=== PATIENT | female | born 1980 | race African-American/Black ===

== ENCOUNTER → 2016-12-31 | Outpatient (CLI) | payer OTHER ==
[~2016-12-31] MED LIST: ALBU17IN2 IN; ALBU83IN IN; AMOX500T PO; BISO5TAB5 PO; CALC600T7 PO; CLAR1TAB2 PO; CLAR5CHW OR; CLARITIN OR; CYCL5TA PO; DIOV160T6 PO; DULO30CA PO; ENEMENE3 PR; EPIP0.3I2 INJ; FERR325T OR; FLOXIN OTIC AD; GABA-283 PO; GABA300C3 PO; HYDR25OIN TOP; HYDR25TA6 OR; LABE30TA OR; LIDO1OIN2 TOP; LISI10TA4 OR; MECL-68 PO; MOME50SP; MULTIVIT OR; NASONEX; NORC7.5T PO; PAXI20TA3 PO; PREV15CA OR; PRIL40CA OR; PRIL40CA PO; PROA1AER INH; RANI15TA PO; REME15TA PO; REME15TA2 PO; ROBA750T4 PO; SKEL800T5 OR; SOMA350T PO; SPIR25TA2 PO; TRAM50TA2 PO; VICO5TAB OR; VITAMIN D50000 UNT OR; VOLT1GEL24 TD; VOLT1GEL24 TOP; XARE20TA PO; ZOFR20TA PO; ZOLO50TA PO; hydrocodone PO
--- NOTE | 2017-01-18 01:54 | ECWPNPC ---
PATIENT NAME: WILNER KEBEDE : 1980 GENDER: FEMALE VISIT DATE: 12/31/2016 DISCHARGE DATE: 12/31/16 1551 VISIT LOCKED DATE TIME: PHYSICIAN: LAN GERMAN RESOURCE: LAN GERMAN REASON FOR APPOINTMENT 1. BACK PAIN HISTORY OF PRESENT ILLNESS HISTORY OF PRESENT ILLNESS: PAIN THE PATIENT DESCRIBES THE PAIN... FALL RISK SCREENING: SCREENING :NO FALLS IN THE PAST YEAR TODAY'S VISIT: NOTES: RATES PAIN LEVEL TODAY 9/10. DESCRIBES PAIN ACHING/STABBING TENDER THROBBING, SHOOTING. PAIN CENTERED IN LOW BACK WITH RADIATION TO BOTH LEGS. IS NOT ABLE TO SLEEP DUE TO PAIN. CURRENT MEDICATIONS TAKING PROTONIX 40 MG TABLET DELAYED RELEASE 1 TABLET ORALLY ONCE A DAY, NOTES: 05-21-16 1200 TAKING TENS UNIT 1 1 DIRECTED TO BACK TOPICALLY DAILY ICD 9: 719.59 TAKING MULTIVITAMINS _ TABLET 1 TABLET ORALLY ONCE A DAY, NOTES: 05-21-16 0800 TAKING CALCIUM + D 600-200 MG-UNIT TABLET 1 TABLET ORALLY ONCE A DAY, NOTES: 05-21-16 08 TAKING EPIPEN 2-TANA 0.3 MG/0.3ML (1:1000) DEVICE 1 INJECTION INTRAMUSCULAR ONE TIME PRN, NOTES: HAS NOT USED TAKING FERROUS SULFATE 325 (65 FE) MG TABLET 1 TABLET ORALLY ONCE A DAY, NOTES: 05-21-16 08 TAKING LACTAID 4500 UNIT TABLET CHEWABLE 1 TABLET ORALLY FOUR TIMES A DAY TAKING BEANO - TABLET 1 TAB ORALLY ONCE DAILY TAKING CYTOTEC 100 MCG TABLET 1 TABLET WITH FOOD ORALLY FOUR TIMES A DAY TAKING LISINOPRIL 10 MG TABLET 1 TABLET ORALLY ONCE A DAY TAKING ERGOCALCIFEROL 19007 UNIT CAPSULE 1 CAPSULE ORALLY 1 TIME/WEEK, NOTES: 05-18-16 TAKING VOLTAREN 1 % GEL APPLY 4 GRAMS EXTERNALLY TO KNEE AND LOWER BACK 2 TIMES A DAY NEEDED FOR PAIN TAKING CLARITIN 10 MG TABLET 1 TABLET ORALLY ONCE A DAY, NOTES: 05-21-06 1900 TAKING ZOFRAN ODT 8 MG TABLET DISPERSIBLE 1 TAB(S) ORALLY EVERY 8 HRS NEEDED DISSOLVED ON TONGUE, NOTES: 1 WEEK TAKING WELLBUTRIN XL 300 MG TABLET EXTENDED RELEASE 24 HOUR 1 TABLET IN THE MORNING ORALLY ONCE A DAY TAKING TRAMADOL HCL 50 MG TABLET 1-2 TABLET NEEDED MDD6 ORALLY EVERY 6 HRS TAKING GABAPENTIN 400 MG CAPSULE 1 CAPSULE ORALLY THREE TIMES A DAY NOT-TAKING WELLBUTRIN XL 150 MG TABLET EXTENDED RELEASE 24 HOUR 1 TABLET IN THE MORNING ORALLY ONCE A DAY NOT-TAKING PREDNISONE TAPER 10 MG TAB TAKE 6 TABS QDX 3 DAYS, THEN TAKE 4 TAB QD X 3 DAYS, THEN TAKE 2 TABS QD X 3 DAYS, THEN TAKE 1 TAB QD X 4 DAYS, THEN STOP ORALLY DAILY NOT-TAKING PROAIR HFA 108 (90 BASE) MCG/ACT AEROSOL SOLUTION 2 PUFFS NEEDED INHALATION EVERY 4 HRS NEEDED NOT-TAKING MECLIZINE HCL 25 MG TABLET CHEWABLE 1 TABLET NEEDED ORALLY EVERY 6 HOURS NOT-TAKING NASACORT ALLERGY 24HR 55 MCG/ACT AEROSOL 1 PUFF IN EACH NOSTRIL NASALLY ONCE A DAY NOT-TAKING OCEAN NASAL SPRAY 0.65 % SOLUTION 2 DROPS IN EACH NOSTRIL NEEDED NASALLY EVERY 2 HRS NOT-TAKING CLASSIC NETI POT SINUS WASH 2300-700 MG KIT DIRECTED NASALLY DAILY DISCONTINUED AMOXICILLIN 500 MG CAPSULE 1 CAPSULE ORALLY EVERY 12 HRS MEDICATION LIST REVIEWED AND RECONCILED WITH THE PATIENT PAST MEDICAL HISTORY OBESITY HYPERTENSION ANEMIA GERD CHRONIC BACK PAIN WITH DISC HERNIATION L5-S1, EXTRUDED MATERIAL SMALLER ON MOST RECENT IMAGING 03/2015; BOTH NEUROSURGERY AND ORTHO AGREE NO SURGERY NECESSARY LEFT LEG PAIN URINARY FREQUENCY SURGEON FELT GASTROPARESIS PRESENT, BUT NORMAL NM GASTRIC EMPTYING STUDY 03/2016 CERVICAL CANCER ALLERGIES BEES: RASH, SWELLING: ALLERGY ZOMIG: HIVES: ALLERGY IODINE: ? SOCIAL HISTORY GENERAL: TOBACCO USE ARE YOU A:NONSMOKER LEARNING BARRIERS / SPECIAL NEEDS ORIENTED TO PLAN OF CARE: PATIENT, PAIN MANAGEMENT PATIENT, ORIENTED TO PLAN OF CARE: PATIENT, PAIN MANAGEMENT PATIENT. NEW PATIENT PAIN DIARY TODAY'S VISITNOTES FROM 0-10, WHAT LEVEL IS YOUR PAIN TODAY?0 PAIN CLINIC PFS, CLERGY, PUBLIC HEALTH REFERRALS PFS REFERRAL NEEDED?NO CLERGY REFERRAL NEEDED?NO PUBLIC HEALTH REFERRAL NEEDED?NO WAS THE PROVIDER NOTIFIED OF ANY PERTINENT INFO?NO PFS REFERRAL NEEDED?NO CLERGY REFERRAL NEEDED?NO PUBLIC HEALTH REFERRAL NEEDED?NO WAS THE PROVIDER NOTIFIED OF ANY PERTINENT INFO?NO REVIEW OF SYSTEMS CONSTITUTIONAL: ANY CHANGE IN YOUR MEDICAL CONDITION? YES B/P HAS BEEN ELEVATED--SEEING PCP 01/04/17 AND WILL LET HIM KNOW . CHILLS NO . FEVER NO . INFECTION: DO YOU HAVE NEW INFECTIONS? NO . DO YOU HAVE HISTORY OF MRSA? NO . MUSCULOSKELETAL: ANY NEW PATTERNS OF PAIN OR NUMBNESS? YES LEFT LOWER LEG IS NUMB AND TINGLY . GASTROENTEROLOGY: ANY NEW CHANGE IN BOWEL CONTROL? NO . GENITOURINARY: ANY NEW CHANGE IN BLADDER CONTROL? YES, INCONTINENT ALL THE TIME . IS THERE A CHANCE YOU COULD BE ? NO . HEMATOLOGY/LYMPH: DO YOU TAKE ANY BLOOD THINNERS? (FOR EXAMPLE- COUMADIN, PLAVIX, AGGRENOX, PLATEL, PRADAXA, OR XARELTO) NO . WHEN WAS YOUR LAST DOSE? DATE: TIME: . NEUROLOGY: HAVE YOU FALLEN IN THE PAST 6 MONTHS? NO . ANY NEW EXTREMITY NUMBNESS OR WEAKNESS? NO . CARDIOLOGY: DO YOU HAVE A PACEMAKER OR DEFIBRILLATOR? NO . RESPIRATORY: HAVE YOU BEEN SICK IN THE PAST WEEK? NO . FEVER NO . FLU LIKE SYMPTOMS? NO . COUGH NO . INTEGUMENTARY: DO YOU HAVE ANY RASHES OR OPEN SORES? NO . ALLERGIC/IMMUNO: ARE YOU ALLERGIC TO SHELLFISH OR IV DYE? YES IODINE--NOT SURE OF REACTION, HAPPENED AFTER AN INJECTION IN THE PAIN CLINIC A COUPLE OF YEARS AGO . ANY NEW ALLERGIES? NO . PSYCHIATRIC: DO YOU HAVE THOUGHTS OF HURTING YOURSELF OR SOMEONE ELSE? NO . ARE YOU ABUSED, NEGLECTED, OR IN AN UNSAFE ENVIRONMENT? NO . ENDOCRINOLOGY: ARE YOU DIABETIC? NO . OTHER: DO YOU NEED ANY PRESCRIPTIONS? NO . IF YES, PLEASE LIST: ____ . ANY NEW PROBLEMS WITH YOUR MEDICATIONS? NO . WHEN DID YOU LAST EAT? ____ . WHEN DID YOU LAST DRINK? ____ . WHAT DID YOU LAST DRINK? ____ . NAME OF PERSON DRIVING YOU HOME? ____ . DO YOU HAVE ANY OTHER QUESTIONS OR CONCERNS NO . PSYCHOLOGY: ARE YOU RECEIVING COUNSELING? SEEING COUNSELOR. DOES NOT FEEL DEPRESSION MEDS ARE WORKING. . REVIEWED BY: PROVIDER: LAN GERMAN SIGNAL OPERATOR TECHNICAL . VITAL SIGNS WT 160.4 LBS, HT 62.25 IN, BMI 29.10 INDEX, BP 151/99 MM HG, HR 58 /MIN, RR 16 /MIN, TEMP 98.3 F, OXYGEN SAT % 100, NA INITIALS TL 1421, REVIEWED BY: ADELEVATED BP 151/99, PT STATES HER GASTRO DR IS AWARE, PT SEES HER PRIMARY CARE DR THURSDAY 01/04 AND WILL DISCUSS IT WITH HIM, RN A.D. AWARE, PT WEIGHED ON SCALE @ [facility]- TL. EXAMINATION GENERAL EXAMINATION: PSYCHALERT , ORIENTED X 3 , ANXIOUS, SHAKEY. HEENT:NORMOCEPHALIC, NO LYPHADENOPATHY, NO THYROMEGLY. LUNGS:CLEAR TO AUSCULTATION BILATERALLY, NO WHEEZES, RALES OR RHONCHI. HEART:NORMAL S1S2, NO MURMURS, CLICK OR RUBS. ABDOMEN:SOFT, NON-TENDER/NON-DISTENDED, BOWEL SOUNDS PRESENT. MUSCULOSKELETAL:MUSCLE STRENGTH TESTING 5/5 RIGHT LOWEREXTREMITY, 4+ /5 LLE. EXQUISITE TENDERNESS BILATERAL SIJ AND ACROSS THE SACRUM AND LOW BACK. GAIT ANTALGIC. HAS DIFFICULTY WITH BALANCE. POSITIVE LEONID SIGN LEFT LOWER EXTREMITY. . ASSESSMENTS LUMBAR DISC HERNIATION - M51.26 (PRIMARY) BILATERAL SACROILIITIS - M46.1 LUMBAR RADICULOPATHY - M54.16 TREATMENT LUMBAR DISC HERNIATION START NORCO TABLET, 10-325 MG, 1 TABLET NEEDED, ORALLY, EVERY 8-12 HRS PRN PAIN MDD=2, 15 DAYS, 30, REFILLS 0 CAUDAL/LUMBAR EPIDURAL NOTES: UTOX TODAY. PREVENTIVE MEDICINE PAIN CLINIC TEACHING: PROCEDURE TEACHING PATIENT DECLINED PRINTED INFORMATION ON THE LUMBAR EPIDURAL AND NORCO STATING SHE WAS FAMILIAR WITH BOTH. PROCEDURE CODES FA211 ESTABILISHED PATIENT [facility] FAC[facility] CHARGE DISPOSITION & COMMUNICATION FOLLOW UP 12-14 DAYS (REASON: CHECK AUTH FOR [facility]) ELECTRONICALLY SIGNED BY CHRIST TREVIÑO ON 01/17/2017 AT 02:00 PM EST DISCLAIMER : THIS IS A VISIT SUMMARY EXTRACTED FROM THE [employer] CHART. IT IS NOT A COPY OF THE [employer] PROGRESS NOTE. NAOMIE
== END ==
LOC: M PAIN 14:20
PROVIDERS: ATTEND Nurse Practitioner Family
DX: Z09 Encounter for follow-up examination after completed treatment for conditions other than malignant neoplasm (principal); G89.29 Other chronic pain; M51.26 Other intervertebral disc displacement, lumbar region; M46.1 Sacroiliitis, not elsewhere classified; M54.16 Radiculopathy, lumbar region; I10 Essential (primary) hypertension; D64.9 Anemia, unspecified; K21.9 Gastro-esophageal reflux disease without esophagitis; M51.27 Other intervertebral disc displacement, lumbosacral region; R39.81 Functional urinary incontinence; Z91.030 Bee allergy status; Z88.8 Allergy status to other drugs, medicaments and biological substances; Z79.891 Long term (current) use of opiate analgesic; Z79.899 Other long term (current) drug therapy; Z85.41 Personal history of malignant neoplasm of cervix uteri

== ENCOUNTER → 2017-01-16 | Outpatient (CLI) | payer OTHER ==
--- NOTE | 2017-01-25 00:16 | ECWPNPC ---
PATIENT NAME: WILNER KEBEDE : 1980 GENDER: FEMALE VISIT DATE: 01/16/2017 DISCHARGE DATE: 01/16/17 1059 VISIT LOCKED DATE TIME: PHYSICIAN: LAN GERMAN RESOURCE: LAN GERMAN REASON FOR APPOINTMENT 1. BACK PAIN/MED CHECK HISTORY OF PRESENT ILLNESS HISTORY OF PRESENT ILLNESS: PAIN THE PATIENT DESCRIBES THE PAIN... FALL RISK SCREENING: SCREENING :NO FALLS IN THE PAST YEAR TODAY'S VISIT: NOTES: RATES PAIN TODAY 8/10. DESCRIBES PAIN CONSTANT, ACHING, BURNING, STABBING, TENDER, SORE AND SHOOTING.REPORTS PAIN IS CENTERED ACROSS THE LOW BACK WITH RADIATION TO THE BUTTUCK AND MID THIGH.. REPORTS HYDROCODONE HAS BEEN HELPFUL AND THAT THE OVERALL PAINIS BETTER. NOTES SLEEP HAS HAS IMPROVED. . CURRENT MEDICATIONS TAKING PROTONIX 40 MG TABLET DELAYED RELEASE 1 TABLET ORALLY ONCE A DAY, NOTES: 05-21-16 1200 TAKING TENS UNIT 1 1 DIRECTED TO BACK TOPICALLY DAILY ICD 9: 719.59 TAKING MULTIVITAMINS _ TABLET 1 TABLET ORALLY ONCE A DAY, NOTES: 05-21-16 0800 TAKING CALCIUM + D 600-200 MG-UNIT TABLET 1 TABLET ORALLY ONCE A DAY, NOTES: 05-21-16 08 TAKING EPIPEN 2-TANA 0.3 MG/0.3ML (1:1000) DEVICE 1 INJECTION INTRAMUSCULAR ONE TIME PRN, NOTES: HAS NOT USED TAKING FERROUS SULFATE 325 (65 FE) MG TABLET 1 TABLET ORALLY TWICE A DAY, NOTES: 05-21-16 0800 TAKING LACTAID 4500 UNIT TABLET CHEWABLE 1 TABLET ORALLY FOUR TIMES A DAY TAKING BEANO - TABLET 1 TAB ORALLY ONCE DAILY TAKING CYTOTEC 100 MCG TABLET 1 TABLET WITH FOOD ORALLY FOUR TIMES A DAY TAKING LISINOPRIL 10 MG TABLET 1 TABLET ORALLY ONCE A DAY TAKING ERGOCALCIFEROL 88370 UNIT CAPSULE 1 CAPSULE ORALLY 1 TIME/WEEK, NOTES: 05-18-16 TAKING VOLTAREN 1 % GEL APPLY 4 GRAMS EXTERNALLY TO KNEE AND LOWER BACK 2 TIMES A DAY NEEDED FOR PAIN TAKING CLARITIN 10 MG TABLET 1 TABLET ORALLY ONCE A DAY, NOTES: 05-21-06 1900 TAKING ZOFRAN ODT 8 MG TABLET DISPERSIBLE 1 TAB(S) ORALLY EVERY 8 HRS NEEDED DISSOLVED ON TONGUE, NOTES: 1 WEEK TAKING WELLBUTRIN XL 300 MG TABLET EXTENDED RELEASE 24 HOUR 1 TABLET IN THE MORNING ORALLY ONCE A DAY TAKING NORCO 10-325 MG TABLET 1 TABLET NEEDED ORALLY EVERY 8-12 HRS PRN PAIN MDD=2 TAKING TRAMADOL HCL 50 MG TABLET 1-2 TABLET NEEDED MDD6 ORALLY EVERY 6 HRS TAKING VITAMIN D 1000 UNIT TABLET 1 TABLET-5000U ORALLY ONCE A DAY TAKING ZYPREXA 5 MG TABLET 1 TABLET ORALLY ONCE A DAY TAKING WELLBUTRIN XL 150 MG TABLET EXTENDED RELEASE 24 HOUR 1 TABLET IN THE MORNING ORALLY ONCE A DAY TAKING PROAIR HFA 108 (90 BASE) MCG/ACT AEROSOL SOLUTION 2 PUFFS NEEDED INHALATION EVERY 4 HRS NEEDED NOT-TAKING GABAPENTIN 400 MG CAPSULE 1 CAPSULE ORALLY THREE TIMES A DAY DISCONTINUED PREDNISONE TAPER 10 MG TAB TAKE 6 TABS QDX 3 DAYS, THEN TAKE 4 TAB QD X 3 DAYS, THEN TAKE 2 TABS QD X 3 DAYS, THEN TAKE 1 TAB QD X 4 DAYS, THEN STOP ORALLY DAILY DISCONTINUED MECLIZINE HCL 25 MG TABLET CHEWABLE 1 TABLET NEEDED ORALLY EVERY 6 HOURS DISCONTINUED NASACORT ALLERGY 24HR 55 MCG/ACT AEROSOL 1 PUFF IN EACH NOSTRIL NASALLY ONCE A DAY DISCONTINUED OCEAN NASAL SPRAY 0.65 % SOLUTION 2 DROPS IN EACH NOSTRIL NEEDED NASALLY EVERY 2 HRS DISCONTINUED CLASSIC NETI POT SINUS WASH 2300-700 MG KIT DIRECTED NASALLY DAILY MEDICATION LIST REVIEWED AND RECONCILED WITH THE PATIENT PAST MEDICAL HISTORY OBESITY HYPERTENSION ANEMIA GERD CHRONIC BACK PAIN WITH DISC HERNIATION L5-S1, EXTRUDED MATERIAL SMALLER ON MOST RECENT IMAGING 03/2015; BOTH NEUROSURGERY AND ORTHO AGREE NO SURGERY NECESSARY LEFT LEG PAIN URINARY FREQUENCY SURGEON FELT GASTROPARESIS PRESENT, BUT NORMAL NM GASTRIC EMPTYING STUDY 03/2016 CERVICAL CANCER ALLERGIES BEES: RASH, SWELLING: ALLERGY ZOMIG: HIVES: ALLERGY IODINE: ? SOCIAL HISTORY GENERAL: TOBACCO USE ARE YOU A:NONSMOKER LEARNING BARRIERS / SPECIAL NEEDS ORIENTED TO PLAN OF CARE: PATIENT, PAIN MANAGEMENT PATIENT, ORIENTED TO PLAN OF CARE: PATIENT, PAIN MANAGEMENT PATIENT. NEW PATIENT PAIN DIARY TODAY'S VISITNOTES FROM 0-10, WHAT LEVEL IS YOUR PAIN TODAY?0 PAIN CLINIC PFS, CLERGY, PUBLIC HEALTH REFERRALS PFS REFERRAL NEEDED?NO CLERGY REFERRAL NEEDED?NO PUBLIC HEALTH REFERRAL NEEDED?NO WAS THE PROVIDER NOTIFIED OF ANY PERTINENT INFO?NO PFS REFERRAL NEEDED?NO CLERGY REFERRAL NEEDED?NO PUBLIC HEALTH REFERRAL NEEDED?NO WAS THE PROVIDER NOTIFIED OF ANY PERTINENT INFO?NO REVIEW OF SYSTEMS CONSTITUTIONAL: ANY CHANGE IN YOUR MEDICAL CONDITION? NO . CHILLS NO . FEVER NO . INFECTION: DO YOU HAVE NEW INFECTIONS? NO . DO YOU HAVE HISTORY OF MRSA? NO . MUSCULOSKELETAL: ANY NEW PATTERNS OF PAIN OR NUMBNESS? NO . GASTROENTEROLOGY: ANY NEW CHANGE IN BOWEL CONTROL? NO . GENITOURINARY: ANY NEW CHANGE IN BLADDER CONTROL? YES, STILL HAVING URINARY INCONTINANCE. HAS SEEN PCP . IS THERE A CHANCE YOU COULD BE ? NO . HEMATOLOGY/LYMPH: DO YOU TAKE ANY BLOOD THINNERS? (FOR EXAMPLE- COUMADIN, PLAVIX, AGGRENOX, PLATEL, PRADAXA, OR XARELTO) NO . WHEN WAS YOUR LAST DOSE? DATE: TIME: . NEUROLOGY: HAVE YOU FALLEN IN THE PAST 6 MONTHS? NO . ANY NEW EXTREMITY NUMBNESS OR WEAKNESS? NO . CARDIOLOGY: DO YOU HAVE A PACEMAKER OR DEFIBRILLATOR? NO . RESPIRATORY: HAVE YOU BEEN SICK IN THE PAST WEEK? NO . FEVER NO . FLU LIKE SYMPTOMS? NO . COUGH NO . INTEGUMENTARY: DO YOU HAVE ANY RASHES OR OPEN SORES? NO . ALLERGIC/IMMUNO: ARE YOU ALLERGIC TO SHELLFISH OR IV DYE? NO . ANY NEW ALLERGIES? NO . PSYCHIATRIC: DO YOU HAVE THOUGHTS OF HURTING YOURSELF OR SOMEONE ELSE? NO . ARE YOU ABUSED, NEGLECTED, OR IN AN UNSAFE ENVIRONMENT? NO . ENDOCRINOLOGY: ARE YOU DIABETIC? NO . OTHER: DO YOU NEED ANY PRESCRIPTIONS? YES . IF YES, PLEASE LIST: HYDROCODONE 10/325MG . ANY NEW PROBLEMS WITH YOUR MEDICATIONS? NO . WHEN DID YOU LAST EAT? ____ . WHEN DID YOU LAST DRINK? ____ . WHAT DID YOU LAST DRINK? ____ . NAME OF PERSON DRIVING YOU HOME? ____ . DO YOU HAVE ANY OTHER QUESTIONS OR CONCERNS YES, HAD AN ENDOSCOPY AND UPPER GI LAST SATURDAY FOR NAUSEA. . REVIEWED BY: PROVIDER: LAN WILDE . VITAL SIGNS WT 160.4 LBS, HT 62.25 IN, BMI 29.10 INDEX, BP 158/95 MM HG, HR 59 /MIN, RR 16 /MIN, TEMP 97.3 F, OXYGEN SAT % 97%, NA INITIALS SC 10:24, REVIEWED BY: CM. EXAMINATION GENERAL EXAMINATION: PSYCHALERT , ORIENTED X 3 , APPROPRIATE MOOD AND AFFECT , APPEARS UNCOMFORTABLE. LUNGS:CLEAR TO AUSCULTATION BILATERALLY. HEART:HEART RATE REGULAR. MUSCULOSKELETAL:POINT TENDERNESS OVER BILATERAL SIJ REGIONS., TRIGGER POINTS:, ELICITED WITH PALPATION OVER LUMBAR PARAVERTEBRAL MUSCLES AND INTO THE SECRUM. RESTRICTION OF ROM IN THIS AREA. PAIN WITH FLEXION OF QUADRICEPS, LEFT GREATER THAN RIGHT. POSTURE STOOPED. GAIT IS ANTALGIC. . ASSESSMENTS LUMBAR DISC HERNIATION - M51.26 (PRIMARY) BILATERAL SACROILIITIS - M46.1 LUMBAR RADICULOPATHY - M54.16 TREATMENT LUMBAR DISC HERNIATION REFILL NORCO TABLET, 10-325 MG, 1 TABLET NEEDED, ORALLY, EVERY 8-12 HRS PRN PAIN MDD=2, 30 DAY(S), 60, REFILLS 0 NOTES: CONTINUE CURRENT MEDS. WALK EVERY DAY. CLINICAL NOTES: ISTOP REGISTRY REVIEWED AND DEMNOSTRATES COMPLLIANCE. BRINGS IN MEDICATIONS WHICH IS APPROPRIATE FOR WHAT WAS DISPENSED. RECENT URINE TOXICOLOGY REVIEWED. NO UNAUTHORIZED MEDICATIONS. NOTE VERY SMALL AMOUNT OF THC PRESENT IN URINE TOXICOLOGY. PATIENT REPORTS THAT SHE IS NO LONGER USING ANY MARIJUANA. I DID REVIEW WITH HER THAT CONTINUED USE OF MARIJUANA WOULD CAUSE US TO HAVE TO DISCONTINUE ANY OPIOIDS. PATIENT EXPRESSED UNDERSTANDING. PROCEDURE CODES FA211 ESTABILISHED PATIENT [facility] CHARGE DISPOSITION & COMMUNICATION FOLLOW UP 3 WEEKS (REASON: CHECK INJECTION SCHEDULE AND RESCHEDULE IF NECESSARY) ELECTRONICALLY SIGNED BY CHRIST TREVIÑO ON 01/24/2017 AT 08:59 AM EST DISCLAIMER : THIS IS A VISIT SUMMARY EXTRACTED FROM THE [employer] CHART. IT IS NOT A COPY OF THE [employer] PROGRESS NOTE. CHUYD
== END ==
LOC: M PAIN 10:20
PROVIDERS: ATTEND Nurse Practitioner Family
DX: Z09 Encounter for follow-up examination after completed treatment for conditions other than malignant neoplasm (principal); G89.29 Other chronic pain; M51.26 Other intervertebral disc displacement, lumbar region; M46.1 Sacroiliitis, not elsewhere classified; M54.16 Radiculopathy, lumbar region; E66.9 Obesity, unspecified; Z68.29 Body mass index [BMI] 29.0-29.9, adult; I10 Essential (primary) hypertension; D64.9 Anemia, unspecified; K21.9 Gastro-esophageal reflux disease without esophagitis; K92.0 Hematemesis; F32.9 Major depressive disorder, single episode, unspecified; E55.9 Vitamin D deficiency, unspecified; J30.9 Allergic rhinitis, unspecified; Z91.030 Bee allergy status; Z88.8 Allergy status to other drugs, medicaments and biological substances; Z79.891 Long term (current) use of opiate analgesic; Z79.899 Other long term (current) drug therapy; Z98.84 Bariatric surgery status; Z85.41 Personal history of malignant neoplasm of cervix uteri

== ENCOUNTER 2017-02-08 12:18 | Emergency (ER) | payer OTHER ==
[~2017-02-08] VITALS: Ht 157.5 cm; Wt 73.9 kg
[~2017-02-08 12:18] MED LIST changes: -CYTO100T PO; -ERGO500014 PO; -ISOVUE-M 300 61% 15ML VIAL (Q9967) As Ordered ONE; -LIDOCAINE 1% SDV INJ 30 ML VIAL As Ordered ONE; -LISI10TA4 PO; -MIDAZOLAM INJ 2 MG/2 ML VIAL (J2250) As Ordered ONE; -PROTPAK PO; -diazePAM 5 MG TAB As Ordered ONE; -diphenhydrAMINE 25 MG CAP As Ordered ONE; -diphenhydrAMINE INJ 50MG/ML VIAL (J1200) As Ordered ONE; -methylPREDNISolone SUSP 40 MG/ML (DEPO-medrol) VIAL (J1030) As Ordered ONE; -oxyCODONE 5MG TAB As Ordered ONE
[2017-02-08] MEDS ORDERED: LISI10TA4 PO (12:38)
[2017-02-08] MEDS ORDERED: PROTPAK PO (12:38)
[2017-02-08] MEDS ORDERED: CYTO100T PO (12:38)
[2017-02-08] MEDS ORDERED: ERGO500014 PO (12:38)
[2017-02-08] MEDS ORDERED: methylPREDNISolone INJ 125 MG/2 ML VIAL (J2930) IV ONE (13:00)
[2017-02-08] MEDS ORDERED: PROMETHAZINE INJ 25 MG/ML VIAL (J2550) IV ONE (13:00)
[2017-02-08] MEDS ORDERED: NS 1,000 ML IV ONE (13:00)
[2017-02-08] MEDS ORDERED: FAMOTIDINE IV BAG 20 MG in APPROPRIATE DILUENT 1 EA IV ONE (13:00)
[2017-02-08] MEDS: ALBUTEROL SULFATE 2.5 MG/0.5 ML INH NEB SOLN NEB SCH ×3 (13:19→13:38)
[2017-02-08] MEDS ORDERED: NORCO, ANEXSIA 5/325MG TABLET (HYDROcodone/ACETAMINOPHEN) PO ONE (14:00)
[2017-02-08 15:54] VITALS: BP 138/73
== END 2017-02-08 16:00 | disposition home or self-care (01) ==
LOC: M ED 12:54
DX: L29.9 Pruritus, unspecified (principal); T50.905A Adverse effect of unspecified drugs, medicaments and biological substances, initial encounter; G89.29 Other chronic pain; M54.9 Dorsalgia, unspecified; Z98.84 Bariatric surgery status; K31.84 Gastroparesis; Z90.49 Acquired absence of other specified parts of digestive tract; F17.200 Nicotine dependence, unspecified, uncomplicated; Z79.899 Other long term (current) drug therapy; Z91.030 Bee allergy status; Z88.6 Allergy status to analgesic agent; Z88.8 Allergy status to other drugs, medicaments and biological substances
CPT/HCPCS: 93041; 94640; 94760; 96361; 96374; 96375; 99285; J2930

== ENCOUNTER 2017-02-08 20:29 | Emergency (ER) | payer OTHER ==
[~2017-02-08] VITALS: Ht 157.5 cm; Wt 73.9 kg
[~2017-02-08 20:29] MED LIST changes: +CYTO100T PO; +ERGO500014 PO; +LISI10TA4 PO; +PROTPAK PO
[2017-02-08] MEDS ORDERED: NS 1,000 ML IV ONE (22:30)
[2017-02-08 22:47] LABS: CONTROL LINE UCG INT CTR LINE PRESENT
[2017-02-08 22:56] LABS: BASO % 0.3 % (0.0-1.0); EOS % 0.6 % (0.0-3.0); LYMPH # 0.6 K/mm3 (1.5-4.5); LYMPH % 17.4 % (24.0-44.0); MEAN CORPUSCULAR HEMOGLOBIN 29.6 pg (27.0-33.0); MEAN CORPUSCULAR HGB CONC 32.4 g/dl (32.0-36.5); MEAN CORPUSCULAR VOLUME 91.3 fl (80.0-96.0); MONO # 0.1 K/mm3 (0.0-0.8); MONO % 1.5 % (0.0-5.0); NEUTROPHILS # 2.6 K/mm3 (1.8-7.7); NEUTROPHILS % 79.2 % (36.0-66.0); PLATELET COUNT, AUTOMATED 259 k/mm3 (150-450); WHITE BLOOD COUNT 3.3 K/mm3 (4.0-10.0)
[2017-02-08 23:15] LABS: ALBUMIN 3.5 GM/DL (3.2-5.2); ALBUMIN/GLOBULIN RATIO 1.03 (1.00-1.93); ALKALINE PHOSPHATASE 167 U/L (45-117); ALT/SGPT 107 U/L (12-78); ANION GAP 7 MEQ/L (8-16); AST/SGOT 188 U/L (15-37); BILIRUBIN,DIRECT 0.3 MG/DL (0.0-0.2); BILIRUBIN,TOTAL 1.2 MG/DL (0.2-1.0); BLOOD UREA NITROGEN 10 MG/DL (7-18); CARBON DIOXIDE LEVEL 25 MEQ/L (21-32); CHLORIDE LEVEL 110 MEQ/L (98-107); CREATININE FOR GFR 0.75 MG/DL (0.55-1.02); GLOMERULAR FILTRATION RATE > 60.0 (>60); GLUCOSE, FASTING 189 MG/DL (70-105); POTASSIUM SERUM 4.2 MEQ/L (3.5-5.1); SODIUM LEVEL 142 MEQ/L (136-145); TOTAL PROTEIN 6.9 GM/DL (6.4-8.2)
[2017-02-09 00:40] VITALS: BP 125/65
--- NOTE | 2017-02-09 14:45 | ECGEPIP ---
Stationary ECG Study [facility] Test Date: 2017-02-08 Pat Name: WILNER KEBEDE Department: Room: - Gender: F [employer]: nando : 1980 Requested By: SHARYN Stewart Order Number: [id number] Reading MD: oJdee Viveros Measurements Intervals [place] Rate: 59 P: 51 MI: 192 QRS: 54 QRSD: 88 T: 48 QT: 439 QTc: 438 Interpretive Statements SINUS BRADYCARDIA VOLTAGE CRITERIA FOR LVH P AXIS NORMALIZED RATE SLOWER PROB EARLY REPOLAR CHANGES NEW C/W 08/31/14 Electronically Signed On 02-09-2017 14:45:15 EST by Jodee Viveros
== END 2017-02-09 00:43 | disposition home or self-care (01) ==
LOC: M ED 21:53
DX: R55 Syncope and collapse (principal); R42 Dizziness and giddiness; I10 Essential (primary) hypertension; M54.9 Dorsalgia, unspecified; Z98.84 Bariatric surgery status; F17.200 Nicotine dependence, unspecified, uncomplicated; Z79.899 Other long term (current) drug therapy; Z91.030 Bee allergy status; Z88.6 Allergy status to analgesic agent; Z88.8 Allergy status to other drugs, medicaments and biological substances

== ENCOUNTER → 2017-02-08 | Outpatient (CLI) | payer OTHER ==
[~2017-02-08] MED LIST changes: +CYTO100T PO; +ERGO500014 PO; +ISOVUE-M 300 61% 15ML VIAL (Q9967) As Ordered ONE; +LIDOCAINE 1% SDV INJ 30 ML VIAL As Ordered ONE; +LISI10TA4 PO; +MIDAZOLAM INJ 2 MG/2 ML VIAL (J2250) As Ordered ONE; +PROTPAK PO; +diazePAM 5 MG TAB As Ordered ONE; +diphenhydrAMINE 25 MG CAP As Ordered ONE; +diphenhydrAMINE INJ 50MG/ML VIAL (J1200) As Ordered ONE; +methylPREDNISolone SUSP 40 MG/ML (DEPO-medrol) VIAL (J1030) As Ordered ONE; +oxyCODONE 5MG TAB As Ordered ONE
--- NOTE | 2017-02-09 10:42 | REP ---
Partial lumbar spine series: Two views. History: Injection procedure for pain. 11 seconds of fluoroscopy time is reported. Findings: A sequence of two fluoroscopically obtained intraprocedural spot radiographs of the lumbar spine document needle position and contrast injection associated with lumbar epidural injection procedure. Signed by Ilan Hill MD 02/09/2017 12:25 P
--- NOTE | 2017-02-19 01:37 | ECWPNPC ---
PATIENT NAME: WILNER KEBEDE : 1980 GENDER: FEMALE VISIT DATE: 02/08/2017 DISCHARGE DATE: 02/08/17 1346 VISIT LOCKED DATE TIME: PHYSICIAN: SELMA BURDEN RESOURCE: SELMA BURDEN REASON FOR APPOINTMENT 1. LESB HISTORY OF PRESENT ILLNESS HISTORY OF PRESENT ILLNESS: PAIN THE PATIENT DESCRIBES THE PAIN... FALL RISK SCREENING: SCREENING :NO FALLS IN THE PAST YEAR CURRENT MEDICATIONS TAKING PROTONIX 40 MG TABLET DELAYED RELEASE 1 TABLET ORALLY ONCE A DAY, NOTES: 02/07/17@0900 TAKING TENS UNIT 1 1 DIRECTED TO BACK TOPICALLY DAILY ICD 9: 719.59 TAKING MULTIVITAMINS _ TABLET 1 TABLET ORALLY ONCE A DAY, NOTES: 02/07/13@1300 TAKING CALCIUM + D 600-200 MG-UNIT TABLET 1 TABLET ORALLY ONCE A DAY, NOTES: 02/07/17@1300 TAKING EPIPEN 2-TANA 0.3 MG/0.3ML (1:1000) DEVICE 1 INJECTION INTRAMUSCULAR ONE TIME PRN, NOTES: HAS NOT USED TAKING FERROUS SULFATE 325 (65 FE) MG TABLET 1 TABLET ORALLY TWICE A DAY, NOTES: 02/07/17@2100 TAKING LACTAID 4500 UNIT TABLET CHEWABLE 1 TABLET ORALLY FOUR TIMES A DAY, NOTES: 2 DAYS AGO TAKING BEANO - TABLET 1 TAB ORALLY ONCE DAILY, NOTES: 2 DAYS AGO TAKING CYTOTEC 100 MCG TABLET 1 TABLET WITH FOOD ORALLY FOUR TIMES A DAY, NOTES: 02/07/13@0900 TAKING LISINOPRIL 10 MG TABLET 1 TABLET ORALLY ONCE A DAY, NOTES: 02/07/17@0900 TAKING ERGOCALCIFEROL 44739 UNIT CAPSULE 1 CAPSULE ORALLY 1 TIME/WEEK, NOTES: 1 WEEK AGO TAKING VOLTAREN 1 % GEL APPLY 4 GRAMS EXTERNALLY TO KNEE AND LOWER BACK 2 TIMES A DAY NEEDED FOR PAIN , NOTES: 1 WEEK AGO TAKING CLARITIN 10 MG TABLET 1 TABLET ORALLY ONCE A DAY, NOTES: 02/07/17@2100 TAKING ZOFRAN ODT 8 MG TABLET DISPERSIBLE 1 TAB(S) ORALLY EVERY 8 HRS NEEDED DISSOLVED ON TONGUE, NOTES: 02/08@0300 TAKING WELLBUTRIN XL 300 MG TABLET EXTENDED RELEASE 24 HOUR 1 TABLET IN THE MORNING ORALLY ONCE A DAY, NOTES: 02/07/17@0900 TAKING TRAMADOL HCL 50 MG TABLET 1-2 TABLET NEEDED MDD6 ORALLY EVERY 6 HRS, NOTES: 2 DAYS AGO TAKING VITAMIN D 1000 UNIT TABLET 1 TABLET-5000U ORALLY ONCE A DAY, NOTES: 02/07/17@1300 TAKING ZYPREXA 5 MG TABLET 1 TABLET ORALLY ONCE A DAY, NOTES: 02/07/17@0900 TAKING PROAIR HFA 108 (90 BASE) MCG/ACT AEROSOL SOLUTION 2 PUFFS NEEDED INHALATION EVERY 4 HRS NEEDED, NOTES: HASN'T USED LATELY TAKING NORCO 10-325 MG TABLET 1 TABLET NEEDED ORALLY EVERY 8-12 HRS PRN PAIN MDD=2, NOTES: 02/07/17@1900 NOT-TAKING GABAPENTIN 400 MG CAPSULE 1 CAPSULE ORALLY THREE TIMES A DAY DISCONTINUED WELLBUTRIN XL 150 MG TABLET EXTENDED RELEASE 24 HOUR 1 TABLET IN THE MORNING ORALLY ONCE A DAY MEDICATION LIST REVIEWED AND RECONCILED WITH THE PATIENT PAST MEDICAL HISTORY OBESITY HYPERTENSION ANEMIA GERD CHRONIC BACK PAIN WITH DISC HERNIATION L5-S1, EXTRUDED MATERIAL SMALLER ON MOST RECENT IMAGING 03/2015; BOTH NEUROSURGERY AND ORTHO AGREE NO SURGERY NECESSARY LEFT LEG PAIN URINARY FREQUENCY SURGEON FELT GASTROPARESIS PRESENT, BUT NORMAL NM GASTRIC EMPTYING STUDY 03/2016 CERVICAL CANCER ALLERGIES BEES: RASH, SWELLING: ALLERGY ZOMIG: HIVES: ALLERGY IODINE: ? SOCIAL HISTORY GENERAL: TOBACCO USE ARE YOU A:NONSMOKER LEARNING BARRIERS / SPECIAL NEEDS ORIENTED TO PLAN OF CARE: PATIENT, PAIN MANAGEMENT PATIENT, ORIENTED TO PLAN OF CARE: PATIENT, PAIN MANAGEMENT PATIENT. NEW PATIENT PAIN DIARY TODAY'S VISITNOTES FROM 0-10, WHAT LEVEL IS YOUR PAIN TODAY?0 PAIN CLINIC PFS, CLERGY, PUBLIC HEALTH REFERRALS PFS REFERRAL NEEDED?NO CLERGY REFERRAL NEEDED?NO PUBLIC HEALTH REFERRAL NEEDED?NO WAS THE PROVIDER NOTIFIED OF ANY PERTINENT INFO?NO PFS REFERRAL NEEDED?NO CLERGY REFERRAL NEEDED?NO PUBLIC HEALTH REFERRAL NEEDED?NO WAS THE PROVIDER NOTIFIED OF ANY PERTINENT INFO?NO REVIEW OF SYSTEMS CONSTITUTIONAL: ANY CHANGE IN YOUR MEDICAL CONDITION? NO . CHILLS NO . FEVER NO . INFECTION: DO YOU HAVE NEW INFECTIONS? NO . DO YOU HAVE HISTORY OF MRSA? NO . MUSCULOSKELETAL: ANY NEW PATTERNS OF PAIN OR NUMBNESS? NO . GASTROENTEROLOGY: ANY NEW CHANGE IN BOWEL CONTROL? NO . GENITOURINARY: ANY NEW CHANGE IN BLADDER CONTROL? NO . IS THERE A CHANCE YOU COULD BE ? NO . HEMATOLOGY/LYMPH: DO YOU TAKE ANY BLOOD THINNERS? (FOR EXAMPLE- COUMADIN, PLAVIX, AGGRENOX, PLATEL, PRADAXA, OR XARELTO) NO . WHEN WAS YOUR LAST DOSE? DATE: TIME: . NEUROLOGY: HAVE YOU FALLEN IN THE PAST 6 MONTHS? NO . ANY NEW EXTREMITY NUMBNESS OR WEAKNESS? NO . CARDIOLOGY: DO YOU HAVE A PACEMAKER OR DEFIBRILLATOR? NO . RESPIRATORY: HAVE YOU BEEN SICK IN THE PAST WEEK? NO . FEVER NO . FLU LIKE SYMPTOMS? NO . COUGH NO . INTEGUMENTARY: DO YOU HAVE ANY RASHES OR OPEN SORES? NO . ALLERGIC/IMMUNO: ARE YOU ALLERGIC TO SHELLFISH OR IV DYE? NO . ANY NEW ALLERGIES? NO . PSYCHIATRIC: DO YOU HAVE THOUGHTS OF HURTING YOURSELF OR SOMEONE ELSE? NO . ARE YOU ABUSED, NEGLECTED, OR IN AN UNSAFE ENVIRONMENT? NO . ENDOCRINOLOGY: ARE YOU DIABETIC? NO . OTHER: DO YOU NEED ANY PRESCRIPTIONS? NO . IF YES, PLEASE LIST: ____ . ANY NEW PROBLEMS WITH YOUR MEDICATIONS? NO . WHEN DID YOU LAST EAT? 02/07/17@1999 . WHEN DID YOU LAST DRINK? ____02/07/17@2099 . WHAT DID YOU LAST DRINK? ____WATER . NAME OF PERSON DRIVING YOU HOME? ____KASIA RAPHAEL . DO YOU HAVE ANY OTHER QUESTIONS OR CONCERNS NO . REVIEWED BY: PROVIDER: . VITAL SIGNS WT 163.2 LBS, HT 62.25 IN, BMI 29.61 INDEX, BP 157/93 MM HG, HR 63 /MIN, RR 16 /MIN, TEMP 97.3 F, OXYGEN SAT % 98, NA INITIALS TL 0912, REVIEWED BY: VD. ASSESSMENTS INTERVERTEBRAL DISC DISORDERS WITH RADICULOPATHY, LUMBOSACRAL REGION - M51.17 (PRIMARY) PROCEDURES PRE PROCEDURE DIAGNOSIS LUMBOSACRAL RADICULOPATHY, LUMBOSACRAL DISC DISORDER WITH RADICULOPATHY POST PROCEDURE DIAGNOSIS LUMBOSACRAL RADICULOPATHY , LUMBOSACRAL DISC DISORDER WITH RADICULOPATHY PROCEDURE L5-S1 EPIDURAL STEROID INJECTION UNDER FLUOROSCOPIC GUIDANCE SURGEON DR. SELMA BURDEN METALS SALES REPRESENTATIVE NONE ANESTHESIA LOCAL PRE PROCEDURE NOTE THE PATIENT HAS A HISTORY OF CHRONIC LOW BACK PAIN. I EVALUATE THE PATIENT AND REVIEWED THE CHART. I WENT OVER THE RISKS, ALTERNATIVES, AND BENEFITS ASSOCIATED WITH THIS PROCEDURE. THE PATIENT WOULD LIKE TO PROCEED AND GIVE CONSENT TO PERFORMED THE PROCEDURE. THE PATIENT DENIES UNEXPLAINABLE WEIGHT LOSS, FEVER, CHILLS, OR NEW CHANGES IN URINARY OR BOWEL CONTROL. DESCRIPTION OF PROCEDURE THE PATIENT WAS BROUGHT TO THE PROCEDURE ROOM AND PLACED IN THE PRONE POSITION. THE LUMBOSACRAL AREA WAS CLEANED WITH BETADINE SOLUTION AND DRAPED ASEPTICALLY. THE PROCEDURE WAS DONE UNDER STERILE CONDITIONS. I CHECKED LATERALITY AND THE LEVEL WHERE THE PROCEDURE WAS GOING TO BE PERFORMED WITH THE PATIENT AND THE SUPPORTING STAFF AT THE MOMENT OF THE TIME OUT IN THE PROCEDURE ROOM. UNDER FLUOROSCOPIC GUIDANCE, THE TARGET POINT WAS SELECTED AT THE INTERLAMINAR LEVEL OF L5-S1. LIDOCAINE WAS USED TO NUMB THE SKIN AND THE SUBCUTANEOUS TISSUE BELOW IT. EPIDURAL TUOHY NEEDLE, 17-GAUGE, WAS ADVANCED UNDER FLUOROSCOPIC GUIDANCE AND FOLLOWING PATIENT FEEDBACK UNTIL THE EPIDURAL SPACE WAS REACHED, 7 CM DEEP INTO THE SKIN BY THE LOSS OF RESISTANCE TECHNIQUE. ISOVUE M DYE 30%, 0.25 ML, WAS INJECTED SHOWING ADEQUATE SPREAD OF THE DYE. THEN, A SOLUTION OF 3 ML OF NORMAL SALINE WITH DEPO-MEDROL 60 MG WAS INJECTED SLOWLY FOLLOWING PATIENT FEEDBACK. THERE WAS NO EVIDENCE OF BLOOD, PARESTHESIA OR CEREBROSPINAL FLUID DURING THE PROCEDURE. FLUOROSCOPY TIME WAS 11 SECONDS. THE PATIENT WAS SENT TO THE RECOVERY ROOM. POST PROCEDURE NOTE AT THE RECOVERY ROOM THE PATIENT DEVELOPED TONIC TYPE OF ACTIVITY OF THE UPPER EXTREMITIES, PATIENT WAS ANXIOUS AND DYSPHORIC. I DISCUSSED WITH THE ER PHYSICIAN AND IT WAS ADVISED TO HAVE THE PATIENT GO TO THE ER. THE PATIENT WILL BE SEEN IN A FOLLOW UP IN THE NEXT FEW WEEKS. INSTRUCTIONS WERE GIVEN, QUESTIONS WERE ANSWERED, PATIENT REPORTS UNDERSTANDING AND AGREES WITH THE PLAN. I, KURTIS VALENCIA, DOCUMENTED THE ABOVE INFORMATION ACTING A SCRIBE FOR DR. BURDEN. I HAVE REVIEWED THE ABOVE DOCUMENT, WRITTEN BY KURTIS VALENCIA SCRIBEmigdio AND I VERIFY THAT IT IS ACCURATE. DIAGNOSTIC IMAGING [facility]– [place] GUIDE SPINE INJECTION (PAIN)[id number] PROCEDURE CODES 26911 LUMBAR/SACRAL W/ IMAGING 6045F RADXPS IN END [id number] PXD DISPOSITION & COMMUNICATION FOLLOW UP 3 WEEKS ELECTRONICALLY SIGNED BY SELMA BURDEN MD ON 02/18/2017 AT 12:25 PM EDT DISCLAIMER : THIS IS A VISIT SUMMARY EXTRACTED FROM THE [email or web address] CHART. IT IS NOT A COPY OF THE [email or web address] PROGRESS NOTE. MTDD
== END ==
LOC: M PAIN 09:10
PROVIDERS: ATTEND Anesthesiology
DX: G89.29 Other chronic pain (principal); M51.17 Intervertebral disc disorders with radiculopathy, lumbosacral region; M54.5 Low back pain; Z79.891 Long term (current) use of opiate analgesic; Z79.899 Other long term (current) drug therapy; F32.9 Major depressive disorder, single episode, unspecified; E55.9 Vitamin D deficiency, unspecified; K21.9 Gastro-esophageal reflux disease without esophagitis; I10 Essential (primary) hypertension; M46.1 Sacroiliitis, not elsewhere classified; N39.42 Incontinence without sensory awareness; R42 Dizziness and giddiness; E66.9 Obesity, unspecified
CPT/HCPCS: 62323; J1030; J1200; J2250; Q9967

== ENCOUNTER → 2017-03-07 | Outpatient (CLI) | payer OTHER ==
[~2017-03-07] MED LIST changes: +GABA-282 PO; -GABA300C3 PO
--- NOTE | 2017-03-07 09:42 | REP ---
Abdominal right upper quadrant ultrasound for elevated liver function tests and right upper quadrant abdominal pain: The the patient has a cholecystectomy. There is a a negative Reno's sign to transducer pressure. There is no intrahepatic or extrahepatic biliary duct dilatation. The common duct measures 5.5 mm in diameter. The hepatic parenchyma is homogeneous and otherwise unremarkable. The visualized portion of the pancreatic head is unremarkable. The right kidney demonstrates mild pelviectasis. This is nonspecific and may be related to the patient's hyrational state. There are no right renal masses or cysts. The right kidney is normal size measuring 11.1 cm craniocaudad length. Evaluation of the right kidney is technically difficult because of this position I of the ribs and obscuration due to bowel gas. Impression: Cholecystectomy. No biliary duct dilatation. Pelviectasis in the right kidney, nonspecific. Otherwise, negative abdominal right upper quadrant ultrasound. Signed by Branden Campa MD 03/07/2017 09:34 A
[2017-03-07 09:45] LABS: ALBUMIN 3.4 GM/DL (3.2-5.2); ALBUMIN/GLOBULIN RATIO 1.17 (1.00-1.93); BILIRUBIN,DIRECT 0.3 MG/DL (0.0-0.2); TOTAL PROTEIN 6.3 GM/DL (6.4-8.2)
== END ==
LOC: M RAD 08:38
PROVIDERS: ATTEND Family Medicine
DX: R94.5 Abnormal results of liver function studies (principal); R10.11 Right upper quadrant pain

== ENCOUNTER → 2017-03-21 | Outpatient (CLI) | payer OTHER ==
--- NOTE | 2017-04-04 00:47 | ECWPNPC ---
PATIENT NAME: WILNER KEBEDE : 1980 GENDER: FEMALE VISIT DATE: 03/21/2017 DISCHARGE DATE: 03/21/17 1121 VISIT LOCKED DATE TIME: PHYSICIAN: LAN GERMAN RESOURCE: LAN GERMAN REASON FOR APPOINTMENT 1. BACK HISTORY OF PRESENT ILLNESS HISTORY OF PRESENT ILLNESS: PAIN THE PATIENT DESCRIBES THE PAIN... FALL RISK SCREENING: SCREENING :NO FALLS IN THE PAST YEAR TODAY'S VISIT: NOTES: HAD LESB 02/08/17 . DEVELOPED HIVES AFYER PROCEDURE AND WAS SENT TO ER. WENT HOME AND THEN WAS FOUND PASSED OUT IN [place]. WAS TRANSPORTED BACK TO ER BY AMBULANCE. LABS WERE DONE. HIVES WERE GONE BY THAT NIGHT. HAS FOLLOWED UP WITH DR VILLASEÑOR AT [facility]. IS HAVING CONTINUED BACK APIN. PAIN IS CENTERED IN LOW BACK AND NOW IN RADIATING DOOWN BOTH LEGS TO MID THIGH. HAS SAME LEFT LEG NUMBNESS BEFORE. STATES RIGHT HAND IS TWITCHING UNCONTROLLABLY SINCE THE INJECTION. STATES SHE IS ALWAYS COLD AND IS SHIVERING CONSTANTLY. CURRENT MEDICATIONS TAKING PROTONIX 40 MG TABLET DELAYED RELEASE 1 TABLET ORALLY ONCE A DAY, NOTES: 02/07/17@0900 TAKING TENS UNIT 1 1 DIRECTED TO BACK TOPICALLY DAILY ICD 9: 719.59 TAKING MULTIVITAMINS _ TABLET 1 TABLET ORALLY ONCE A DAY, NOTES: 02/07/13@1300 TAKING CALCIUM + D 600-200 MG-UNIT TABLET 1 TABLET ORALLY ONCE A DAY, NOTES: 02/07/17@1300 TAKING EPIPEN 2-TANA 0.3 MG/0.3ML (1:1000) DEVICE 1 INJECTION INTRAMUSCULAR ONE TIME PRN, NOTES: HAS NOT USED TAKING FERROUS SULFATE 325 (65 FE) MG TABLET 1 TABLET ORALLY TWICE A DAY, NOTES: 02/07/17@2100 TAKING LACTAID 4500 UNIT TABLET CHEWABLE 1 TABLET ORALLY FOUR TIMES A DAY, NOTES: 2 DAYS AGO TAKING BEANO - TABLET 1 TAB ORALLY ONCE DAILY, NOTES: 2 DAYS AGO TAKING LISINOPRIL 10 MG TABLET 1 TABLET ORALLY ONCE A DAY, NOTES: 02/07/17@0900 TAKING ERGOCALCIFEROL 56232 UNIT CAPSULE 1 CAPSULE ORALLY 1 TIME/WEEK, NOTES: 1 WEEK AGO TAKING VOLTAREN 1 % GEL APPLY 4 GRAMS EXTERNALLY TO KNEE AND LOWER BACK 2 TIMES A DAY NEEDED FOR PAIN , NOTES: 1 WEEK AGO TAKING CLARITIN 10 MG TABLET 1 TABLET ORALLY ONCE A DAY, NOTES: 02/07/17@2100 TAKING ZOFRAN ODT 8 MG TABLET DISPERSIBLE 1 TAB(S) ORALLY EVERY 8 HRS NEEDED DISSOLVED ON TONGUE, NOTES: 02/08@0300 TAKING VITAMIN D 1000 UNIT TABLET 1 TABLET-5000U ORALLY ONCE A DAY, NOTES: 02/07/17@1300 TAKING ZYPREXA 5 MG TABLET 1 TABLET ORALLY ONCE A DAY, NOTES: 02/07/17@0900 TAKING PROAIR HFA 108 (90 BASE) MCG/ACT AEROSOL SOLUTION 2 PUFFS NEEDED INHALATION EVERY 4 HRS NEEDED, NOTES: HASN'T USED LATELY TAKING TRAMADOL HCL 50 MG TABLET 1-2 TABLET NEEDED MDD6 ORALLY EVERY 6 HRS TAKING WELLBUTRIN XL 300 MG TABLET EXTENDED RELEASE 24 HOUR 1 TABLET IN THE MORNING ORALLY ONCE A DAY TAKING CYTOTEC 100 MCG TABLET 1 TABLET WITH FOOD ORALLY FOUR TIMES A DAY TAKING NORCO 10-325 MG TABLET 1 TABLET NEEDED ORALLY EVERY 8-12 HRS PRN PAIN MDD=2 TAKING PROZAC 10 MG CAPSULE 1 CAPSULE IN THE MORNING ORALLY ONCE A DAY TAKING TRAZODONE HCL 50 MG TABLET 1 TABLET AT BEDTIME NEEDED ORALLY ONCE A DAY NOT-TAKING GABAPENTIN 400 MG CAPSULE 1 CAPSULE ORALLY THREE TIMES A DAY MEDICATION LIST REVIEWED AND RECONCILED WITH THE PATIENT PAST MEDICAL HISTORY OBESITY HYPERTENSION ANEMIA GERD CHRONIC BACK PAIN WITH DISC HERNIATION L5-S1, EXTRUDED MATERIAL SMALLER ON MOST RECENT IMAGING 03/2015; BOTH NEUROSURGERY AND ORTHO AGREE NO SURGERY NECESSARY LEFT LEG PAIN URINARY FREQUENCY SURGEON FELT GASTROPARESIS PRESENT, BUT NORMAL NM GASTRIC EMPTYING STUDY 03/2016 CERVICAL CANCER ALLERGIES BEES: RASH, SWELLING: ALLERGY ZOMIG: HIVES: ALLERGY IODINE: ? NSAIDS: GI BLEED/GASTRIC BYPASS: CONTRAINDICATION SOCIAL HISTORY GENERAL: PAIN CLINIC PFS, CLERGY, PUBLIC HEALTH REFERRALS CLERGY REFERRAL NEEDED?NO WAS THE PROVIDER NOTIFIED OF ANY PERTINENT INFO?NO PFS REFERRAL NEEDED?NO PUBLIC HEALTH REFERRAL NEEDED?NO PATIENT: ____. REVIEW OF SYSTEMS CONSTITUTIONAL: ANY CHANGE IN YOUR MEDICAL CONDITION? NO . CHILLS NO . FEVER NO . INFECTION: DO YOU HAVE NEW INFECTIONS? NO . DO YOU HAVE HISTORY OF MRSA? NO . MUSCULOSKELETAL: ANY NEW PATTERNS OF PAIN OR NUMBNESS? NO . GASTROENTEROLOGY: ANY NEW CHANGE IN BOWEL CONTROL? NO . GENITOURINARY: ANY NEW CHANGE IN BLADDER CONTROL? NO . IS THERE A CHANCE YOU COULD BE ? NO . HEMATOLOGY/LYMPH: DO YOU TAKE ANY BLOOD THINNERS? (FOR EXAMPLE- COUMADIN, PLAVIX, AGGRENOX, PLATEL, PRADAXA, OR XARELTO) NO . WHEN WAS YOUR LAST DOSE? DATE: TIME: . NEUROLOGY: HAVE YOU FALLEN IN THE PAST 6 MONTHS? NO . ANY NEW EXTREMITY NUMBNESS OR WEAKNESS? NO . CARDIOLOGY: DO YOU HAVE A PACEMAKER OR DEFIBRILLATOR? NO . RESPIRATORY: HAVE YOU BEEN SICK IN THE PAST WEEK? NO . FEVER NO . FLU LIKE SYMPTOMS? NO . COUGH NO . INTEGUMENTARY: DO YOU HAVE ANY RASHES OR OPEN SORES? NO . ALLERGIC/IMMUNO: ARE YOU ALLERGIC TO SHELLFISH OR IV DYE? NO . ANY NEW ALLERGIES? NO . PSYCHIATRIC: DO YOU HAVE THOUGHTS OF HURTING YOURSELF OR SOMEONE ELSE? NO . ARE YOU ABUSED, NEGLECTED, OR IN AN UNSAFE ENVIRONMENT? NO . ENDOCRINOLOGY: ARE YOU DIABETIC? NO . OTHER: DO YOU NEED ANY PRESCRIPTIONS? NO . IF YES, PLEASE LIST: ____ . ANY NEW PROBLEMS WITH YOUR MEDICATIONS? NO . WHEN DID YOU LAST EAT? ____ . WHEN DID YOU LAST DRINK? ____ . WHAT DID YOU LAST DRINK? ____ . NAME OF PERSON DRIVING YOU HOME? ____ . DO YOU HAVE ANY OTHER QUESTIONS OR CONCERNS NO . REVIEWED BY: PROVIDER: LAN WILDE . VITAL SIGNS WT 158 LBS, HT 62.25 IN, BMI 28.66 INDEX, BP 123/73 MM HG, HR 55 /MIN, RR 16 /MIN, TEMP 97.8 F, OXYGEN SAT % 99%, NA INITIALS SC 10:15. EXAMINATION GENERAL EXAMINATION: PSYCHALERT , ORIENTED X 3 , APPROPRIATE MOOD AND AFFECT , APPEARS UNCOMFORTABLE. LUNGS:CLEAR TO AUSCULTATION BILATERALLY. HEART:HEART RATE REGULAR. MUSCULOSKELETAL:POINT TENDERNESS OVER BILATERAL SIJ REGIONS., TRIGGER POINTS:, ELICITED WITH PALPATION OVER LUMBAR PARAVERTEBRAL MUSCLES AND INTO THE SACRUM. HYPERSENSATIVITY TO ANY LIGHT TOUCH OVER THE UPPER AND LOWER BACK . RESTRICTION OF ROM IN THIS AREA. PAIN WITH FLEXION OF QUADRICEPS, LEFT GREATER THAN RIGHT. POSTURE STOOPED. GAIT IS ANTALGIC. . ASSESSMENTS LUMBAR DISC HERNIATION - M51.26 (PRIMARY) LUMBAR RADICULOPATHY - M54.16 TREATMENT LUMBAR DISC HERNIATION NOTES: UTOX TODAY. BRING ALL MEDS TO EVERY VISIT.PAIN MEDS TO DISPENSED ONLY BY THE PAIN CENTER. CLINICAL NOTES: [facility] REGISTRY REVIEWED AND DEMNOSTRATES COMPLLIANCE. BRINGS IN MEDICATIONS WHICH IS APPROPRIATE FOR WHAT WAS DISPENSED. RECENT URINE TOXICOLOGY REVIEWED. NO UNAUTHORIZED MEDICATIONS. NO ILLICIT SUBSTANCES AND PRESCRIBED MEDICATIONS WERE PRESENT. ON REVIEW NOTE TRAMADIL WAS FILLED ON 02/25/17 PER [facility]. PHARMACY STATES IT WAS PICKED UP ON 03/28/17. PROCEDURE CODES FA211 ESTABILISHED PATIENT [facility] CHARGE DISPOSITION & COMMUNICATION FOLLOW UP 1 MONTH ELECTRONICALLY SIGNED BY CHRIST TREVIÑO ON 04/03/2017 AT 09:32 AM EDT DISCLAIMER : THIS IS A VISIT SUMMARY EXTRACTED FROM THE [employer] CHART. IT IS NOT A COPY OF THE [employer] PROGRESS NOTE. MTDD
== END ==
LOC: M PAIN 10:20
PROVIDERS: ATTEND Nurse Practitioner Family
DX: M51.26 Other intervertebral disc displacement, lumbar region (principal); M54.16 Radiculopathy, lumbar region; G89.29 Other chronic pain; Z79.891 Long term (current) use of opiate analgesic; Z79.899 Other long term (current) drug therapy; F32.9 Major depressive disorder, single episode, unspecified; E55.9 Vitamin D deficiency, unspecified; J30.9 Allergic rhinitis, unspecified; K21.9 Gastro-esophageal reflux disease without esophagitis; I10 Essential (primary) hypertension; Z91.030 Bee allergy status; Z88.8 Allergy status to other drugs, medicaments and biological substances

== ENCOUNTER → 2017-03-21 | Outpatient (CLI) | payer OTHER ==
--- NOTE | 2017-03-21 12:28 | REPMRS ---
Patient History The patient states she had a clinical breast exam in March 2017. Patient has history of endometrial cancer at age 18. Family history of ovarian cancer in maternal aunt at age 30. Patient states she has lost 50lbs. since her last mammoghram Digital Mammo Diagnostic Bilateral: March 21, 2017 - Exam #: [id number] Bilateral CC and MLO view(s) were taken. Technologist: Chelsea Drummond, Technologist Prior study comparison: March 05, 2016, digital mammo diagnostic bilateral performed at [facility]. FINDINGS: The breast tissue is heterogeneously dense. This may lower the sensitivity of mammography. There is a moderate amount of heterogeneously dense fibroglandular tissue which is fairly symmetric. There is an oval-shaped 1.2 cm lymph node again noted in the upper outer quadrant of the left breast near the axilla unchanged from the comparison study of March 05, 2016.There is no interval development of dominant mass, architectural distortion, or clustered microcalcification typical of malignancy. There has been no change in the appearance of the mammogram from the prior studies. ASSESSMENT: BI-RADS/ACR category 2 mammogram. Benign finding(s). Recommendation Routine screening mammogram of both breasts in 1 year (for women over age 40). This mammogram was interpreted with the aid of an FDA-approved computer-aided dectection system. Electronically Signed By: Juan David Hill MD 03/21/17 2684
== END ==
LOC: M RAD 11:30
PROVIDERS: ATTEND Family Medicine
DX: R92.2 Inconclusive mammogram (principal); Z85.44 Personal history of malignant neoplasm of other female genital organs

== ENCOUNTER → 2017-03-27 | Outpatient (REF) | payer OTHER | LOC: M SFHCPLAZ 15:45 | PROVIDERS: ATTEND Family Medicine | DX: Z12.4 Encounter for screening for malignant neoplasm of cervix (principal) ==

== ENCOUNTER → 2017-04-01 | Outpatient (CLI) | payer OTHER | LOC: M LAB 10:35 | PROVIDERS: ATTEND Family Medicine | DX: Z72.51 High risk heterosexual behavior (principal); Z83.3 Family history of diabetes mellitus ==

== ENCOUNTER → 2017-05-02 | Outpatient (CLI) | payer OTHER ==
[2017-05-02 11:00] LABS: MEAN CORPUSCULAR HEMOGLOBIN 30.3 pg (27.0-33.0); MEAN CORPUSCULAR HGB CONC 32.5 g/dl (32.0-36.5); MEAN CORPUSCULAR VOLUME 93.1 fl (80.0-96.0); RED CELL DISTRIBUTION WIDTH 13.8 % (11.5-14.5); WHITE BLOOD COUNT 4.8 K/mm3 (4.0-10.0)
== END ==
LOC: M LAB 10:25
PROVIDERS: ATTEND Family Medicine
DX: R53.1 Weakness (principal)

== ENCOUNTER → 2017-06-19 | Outpatient (CLI) | payer OTHER ==
[~2017-06-19] MED LIST changes: +ARTH650T11 PO; +CELE40TA; +CIPR-249 PO; +DICY20TA11; +ENEMENE16 PR; -ENEMENE3 PR; +HYDR-3719 PO; -NORC7.5T PO; +NORC7.5T35 PO; +PAXI20TA29 PO; -PAXI20TA3 PO; -PROA1AER INH; +PROAAER10 INH; +TRAZ-136; +VOLT1GEL15 TD; +VOLT1GEL15 TOP; -VOLT1GEL24 TD; -VOLT1GEL24 TOP; +ZOFR8TAB PO; +ZONI50CA3; +ZYPR5TAB2
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
== END ==
LOC: M PAIN 08:40
PROVIDERS: ATTEND Nurse Practitioner Family
DX: M51.26 Other intervertebral disc displacement, lumbar region (principal); M54.16 Radiculopathy, lumbar region; G89.29 Other chronic pain; F32.9 Major depressive disorder, single episode, unspecified; I10 Essential (primary) hypertension; K92.0 Hematemesis; E55.9 Vitamin D deficiency, unspecified; J30.9 Allergic rhinitis, unspecified; K21.9 Gastro-esophageal reflux disease without esophagitis; Z98.84 Bariatric surgery status; Z79.891 Long term (current) use of opiate analgesic; Z79.899 Other long term (current) drug therapy; Z91.030 Bee allergy status; Z88.8 Allergy status to other drugs, medicaments and biological substances

== ENCOUNTER → 2017-07-17 | Outpatient (CLI) | payer OTHER ==
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
== END ==
LOC: M PAIN 09:00
PROVIDERS: ATTEND Nurse Practitioner Family
DX: M46.1 Sacroiliitis, not elsewhere classified (principal); M51.26 Other intervertebral disc displacement, lumbar region; M54.16 Radiculopathy, lumbar region; I10 Essential (primary) hypertension; E55.9 Vitamin D deficiency, unspecified; F17.210 Nicotine dependence, cigarettes, uncomplicated; Z79.891 Long term (current) use of opiate analgesic; Z79.899 Other long term (current) drug therapy; Z91.030 Bee allergy status; Z88.8 Allergy status to other drugs, medicaments and biological substances

== ENCOUNTER → 2017-08-08 | Outpatient (CLI) | payer OTHER ==
[~2017-08-08] MED LIST changes: +BUPIVACAINE HCL 0.25% 30 ML VIAL As Ordered ONE; +LIDOCAINE 1% SDV INJ 30 ML VIAL As Ordered ONE; +TRIAMCINOLONE ACETONIDE SUSP 40 MG/ML VIAL (J3301) As Ordered ONE; +diazePAM 5 MG TAB As Ordered ONE; +oxyCODONE 5MG TAB As Ordered ONE
--- NOTE | 2017-08-08 12:48 | REP ---
PARTIAL SI JOINT SERIES: Single view. HISTORY: Injection procedure for pain. 17 seconds of fluoroscopy time is reported. FINDINGS: A single last image hold fluoroscopic spot radiograph documents needle position. No laterality markers are seen. Signed by Ilan Hill MD 08/08/2017 02:45 P
--- NOTE | 2017-08-09 00:34 | ECWPNPC ---
PATIENT NAME: WILNER KEBEDE : 1980 GENDER: FEMALE VISIT DATE: 08/08/2017 DISCHARGE DATE: 08/08/17 1112 VISIT LOCKED DATE TIME: PHYSICIAN: SELMA BURDEN RESOURCE: SELMA BURDEN REASON FOR APPOINTMENT 1. R SIJ, NO IODINE HISTORY OF PRESENT ILLNESS HISTORY OF PRESENT ILLNESS: PAIN THE PATIENT DESCRIBES THE PAIN... FALL RISK SCREENING: SCREENING :NO FALLS IN THE PAST YEAR CURRENT MEDICATIONS TAKING ZONISAMIDE 50 MG CAPSULE 1 CAP ORALLY TWICE A DAY, NOTES: 08/07/17 1000 TAKING TENS UNIT 1 1 DIRECTED TO BACK TOPICALLY DAILY ICD 9: 719.59 TAKING MULTIVITAMINS _ TABLET 1 TABLET ORALLY ONCE A DAY, NOTES: 08/07/17 07 TAKING LACTAID 4500 UNIT TABLET CHEWABLE 1 TABLET ORALLY FOUR TIMES A DAY, NOTES: 08/07/17699 TAKING BEANO - TABLET 1 TAB ORALLY ONCE DAILY, NOTES: 08/07/17 07 TAKING ERGOCALCIFEROL 54423 UNIT CAPSULE 1 CAPSULE ORALLY 1 TIME/WEEK, NOTES: 08/02/17 TAKING VOLTAREN 1 % GEL APPLY 4 GRAMS EXTERNALLY TO KNEE AND LOWER BACK 2 TIMES A DAY NEEDED FOR PAIN , NOTES: NONE RECENT TAKING TRAZODONE HCL 50 MG TABLET 3 TABLETS AT BEDTIME NEEDED ORALLY ONCE A DAY AT BEDTIME, NOTES: 08/03/17 TAKING CELEXA 10 MG TABLET 3 TABS ORALLY ONCE A DAY, NOTES: 08/07/17 1900 TAKING TRAMADOL HCL 50 MG TABLET 1-2 TABLET NEEDED MDD6 ORALLY EVERY 6 HRS, NOTES: 08/07/17 1600 TAKING NORCO 10-325 MG TABLET 1 TABLET NEEDED ORALLY EVERY 8-12 HRS PRN PAIN MDD=2, NOTES: 08/07/17 2200 TAKING LISINOPRIL 10 MG TABLET 1 TABLET ORALLY ONCE A DAY, NOTES: 08/07/17 0700 TAKING FLONASE 50 MCG/ACT SUSPENSION 2 SPRAY IN EACH NOSTRIL NASALLY ONCE A DAY, NOTES: 08/07/17 1200 TAKING CALCIUM + D 600-200 MG-UNIT TABLET 1 TABLET ORALLY ONCE A DAY, NOTES: 08/07/17 0700 TAKING FERROUS SULFATE 325 (65 FE) MG TABLET 1 TABLET ORALLY TWICE A DAY, NOTES: 08/07/17 0900 TAKING CLARITIN 10 MG TABLET 1 TABLET ORALLY ONCE A DAY, NOTES: 08/07/17 2100 TAKING VITAMIN D 1000 UNIT TABLET 1 TABLET ORALLY ONCE A DAY, NOTES: 08/07/17 TAKING PROAIR HFA 108 (90 BASE) MCG/ACT AEROSOL SOLUTION 2 PUFFS NEEDED INHALATION EVERY 4 HRS NEEDED, NOTES: 08/07/17 0900 TAKING EPIPEN 2-TANA 0.3 MG/0.3ML (1:1000) DEVICE 1 INJECTION INTRAMUSCULAR ONE TIME PRN, NOTES: NONE RECENT TAKING CYTOTEC 100 MCG TABLET 1 TABLET WITH FOOD ORALLY FOUR TIMES A DAY, NOTES: 08/05/17 0700 TAKING ZOFRAN ODT 8 MG TABLET DISPERSIBLE 1 TAB ORALLY THREE TIMES DAILY NEEDED, NOTES: 08/07/17 2100 NOT-TAKING PROZAC 10 MG CAPSULE 1 CAPSULE IN THE MORNING ORALLY ONCE A DAY NOT-TAKING GABAPENTIN 400 MG CAPSULE 1 CAPSULE ORALLY THREE TIMES A DAY MEDICATION LIST REVIEWED AND RECONCILED WITH THE PATIENT PAST MEDICAL HISTORY OBESITY HYPERTENSION ANEMIA GERD CHRONIC BACK PAIN WITH DISC HERNIATION L5-S1, EXTRUDED MATERIAL SMALLER ON MOST RECENT IMAGING 03/2015; BOTH NEUROSURGERY AND ORTHO AGREE NO SURGERY NECESSARY LEFT LEG PAIN URINARY FREQUENCY SURGEON FELT GASTROPARESIS PRESENT, BUT NORMAL NM GASTRIC EMPTYING STUDY 03/2016 CERVICAL CANCER ALLERGIES BEES: RASH, SWELLING: ALLERGY ZOMIG: HIVES: ALLERGY IODINE: ? NSAIDS: GI BLEED/GASTRIC BYPASS: CONTRAINDICATION FLUOXETINE: HIVES: ALLERGY GABAPENTIN: HALLUCINATIONS: SIDE EFFECTS SOCIAL HISTORY GENERAL: TOBACCO USE ARE YOU A:FORMER SMOKER QUIT 2 MOS AGO BMI CARE GOAL FOLLOW-UP ABOVE NORMAL BMI FOLLOW-UPGIVING ENCOURAGEMENT TO EXERCISE ALCOHOL SCREENING DID YOU HAVE A DRINK CONTAINING ALCOHOL IN THE PAST YEAR?YES HOW MANY DRINKS DID YOU HAVE ON A TYPICAL DAY WHEN YOU WERE DRINKING IN THE PAST YEAR?1 OR 2 (0 POINTS) HOW OFTEN DID YOU HAVE A DRINK CONTAINING ALCOHOL IN THE PAST YEAR?MONTHLY OR LESS (1 POINT) POINTS1 INTERPRETATIONNEGATIVE RECREATIONAL DRUG USE DRUG USE?NO CAFFEINE CAFFEINE USE?NO SEXUAL HX HAD SEX IN THE LAST 12 MONTHS (VAGINAL, ORAL, OR ANAL)?YES WITHMEN ONLY USE PROTECTION?NO LMP:07/04/2017 HAVE YOU EVER HAD AN STD?NO HIV / HEP-C SCREENING HIV TEST OFFERED TO PATIENT:YES DATE OFFERED:03/01/2017 TEST ACCEPTED:NO HEP-C TEST OFFERED TO PATIENT:YES DATE OFFERED:03/01/2017 REASON:PATIENT DECLINED TEST ACCEPTED:NO REASON:PATIENT DECLINED OCCUPATION: UNEMPLOYED/ WAITING FOR SSI. MARITAL STATUS: SINGLE. OTHERS AT HOME: 3 KIDS. ISLAM [id number] NONE LANGUAGE LANGUAGES SPOKEN:AMHARIC EDUCATION LEVEL OF EDUCATION:FINISHED HIGH SCHOOL 11 TH GRADE LEARNING BARRIERS / SPECIAL NEEDS CHANGE FROM LAST VISIT?NO BARRIERS TO LEARNING?NO HEARING IMPAIRED?NO VISION IMPAIRED?NO COGNITIVELY IMPAIRED?NO READINESS TO LEARN?YES LEARNING PREFERENCES?NO LEARNING CAPABILITIES PRESENT?YES EMOTIONAL BARRIERS?NO SPECIAL DEVICES?NO CONVEYOR ATTENDANT NEEDED?NO PAIN CLINIC PFS, CLERGY, PUBLIC HEALTH REFERRALS PFS REFERRAL NEEDED?NO CLERGY REFERRAL NEEDED?NO PUBLIC HEALTH REFERRAL NEEDED?NO HAS THE PATIENT BEEN EDUCATED REGARDING HIS/HER PLAN OF CARE?YES HAS THE PATIENT BEEN EDUCATED REGARDING PAIN, THE RISK FOR PAIN, THE IMPORTANCE OF EFFECTIVE PAIN MANAGEMENT, AND THE PAIN ASSESSMENT PROCESS?YES REVIEWED BY: 08/08/17 AD. PATIENT: ____. ADVANCE DIRECTIVES HEALTH CARE PROXY?NO WOULD YOU LIKE MORE INFORMATION?NO POWER OF SEWER DIGGER?NO DO YOU HAVE A DNR?NO WOULD YOU LIKE MORE INFORMATION?NO LIVING WILL?NO WOULD YOU LIKE MORE INFORMATION?NO WOULD YOU LIKE MORE INFORMATION?NO DOMESTIC VIOLENCE DO YOU FEEL SAFE IN YOUR ENVIRONMENT?YES 08/08/17 ORIENTATION TO PAIN CLINIC AND PLAN OF CARE REVIEWED WITH PATIENT AND SHE VERBALIZED UNDERSTANDING. AD. REVIEW OF SYSTEMS REVIEWED BY: PROVIDER: . CONSTITUTIONAL: ANY CHANGE IN YOUR MEDICAL CONDITION? NO . CHILLS NO . FEVER NO . INFECTION: DO YOU HAVE NEW INFECTIONS? NO . DO YOU HAVE HISTORY OF MRSA? NO . MUSCULOSKELETAL: ANY NEW PATTERNS OF PAIN OR NUMBNESS? NO . GASTROENTEROLOGY: ANY NEW CHANGE IN BOWEL CONTROL? NO . GENITOURINARY: ANY NEW CHANGE IN BLADDER CONTROL? NO . IS THERE A CHANCE YOU COULD BE ? NO . HEMATOLOGY/LYMPH: DO YOU TAKE ANY BLOOD THINNERS? (FOR EXAMPLE- COUMADIN, PLAVIX, AGGRENOX, PLATEL, PRADAXA, OR XARELTO) NO . WHEN WAS YOUR LAST DOSE? DATE: TIME: . NEUROLOGY: HAVE YOU FALLEN IN THE PAST 6 MONTHS? NO . ANY NEW EXTREMITY NUMBNESS OR WEAKNESS? NO . CARDIOLOGY: DO YOU HAVE A PACEMAKER OR DEFIBRILLATOR? NO . RESPIRATORY: HAVE YOU BEEN SICK IN THE PAST WEEK? NO . FEVER NO . FLU LIKE SYMPTOMS? NO . COUGH NO . INTEGUMENTARY: DO YOU HAVE ANY RASHES OR OPEN SORES? NO . ALLERGIC/IMMUNO: ARE YOU ALLERGIC TO SHELLFISH OR IV DYE? NO . ANY NEW ALLERGIES? NO . PSYCHIATRIC: DO YOU HAVE THOUGHTS OF HURTING YOURSELF OR SOMEONE ELSE? NO . ARE YOU ABUSED, NEGLECTED, OR IN AN UNSAFE ENVIRONMENT? NO . ENDOCRINOLOGY: ARE YOU DIABETIC? NO . OTHER: DO YOU NEED ANY PRESCRIPTIONS? NO . IF YES, PLEASE LIST: ____ . ANY NEW PROBLEMS WITH YOUR MEDICATIONS? NO . WHEN DID YOU LAST EAT? 08/07 2000 . WHEN DID YOU LAST DRINK? 08/07 2000 . WHAT DID YOU LAST DRINK? WATER . NAME OF PERSON DRIVING YOU HOME? KASIA RAPHAEL . DO YOU HAVE ANY OTHER QUESTIONS OR CONCERNS NO . VITAL SIGNS WT 159.6 LBS, HT 62.25 IN, BMI 28.95 INDEX, BP 144/76 MM HG, HR 56 /MIN, RR 18 /MIN, TEMP 98.2 F, OXYGEN SAT % 100%, NA INITIALS SC 10:00, REVIEWED BY: YANELY, LMP: 08/03/17. ASSESSMENTS SACROILIITIS, NOT ELSEWHERE CLASSIFIED - M46.1 (PRIMARY) PROCEDURES PN SI PRE PROCEDURE DIAGNOSIS SACROILIITIS, SACROILIAC JOINT DYSFUNCTION POST PROCEDURE DIAGNOSIS SACROILIITIS, SACROILIAC JOINT DYSFUNCTION PROCEDURE RIGHT SACROILIAC JOINT BLOCK SURGEON DR. SELMA BURDEN PRE K SPECIAL EDUCATION TEACHER NONE ANESTHESIA LOCAL PRE PROCEDURE NOTE PATIENT WITH HISTORY OF CHRONIC LOW BACK PAIN. I EVALUATED THE PATIENT AND REVIEWED THE CHART. I WENT OVER THE RISKS, ALTERNATIVES, AND BENEFITS ASSOCIATED WITH THIS PROCEDURE. THE PATIENT WOULD LIKE TO PROCEED AND GAVE CONSENT TO PERFORM THE PROCEDURE. THE PATIENT DENIES UNEXPLAINABLE WEIGHT LOSS, FEVER, CHILLS, OR NEW CHANGES IN URINARY OR BOWEL CONTROL DESCRIPTION OF PROCEDURE THE PATIENT WAS BROUGHT TO THE PROCEDURE ROOM AND PLACED IN THE PRONE POSITION. THE LUMBOSACRAL AREA WAS CLEANED WITH CHLORAPREP SOLUTION AND DRAPED ASEPTICALLY. THE PROCEDURE WAS DONE UNDER STERILE CONDITIONS. I CHECKED LATERALITY AND THE LEVEL WHERE THE PROCEDURE WAS GOING TO BE PERFORMED WITH THE PATIENT AND THE SUPPORTING STAFF AT THE MOMENT OF THE TIME OUT IN THE PROCEDURE ROOM. UNDER FLUOROSCOPIC GUIDANCE, TARGET POINT WAS SELECTED AT THE LOWER BORDER OF THE RIGHT SACROILIAC JOINT. TARGET POINT WAS SELECTED AFTER MEDIAL ROTATION AND TILT OF THE MAGNIFIER OF THE C-ARM. LIDOCAINE WAS USED TO NUMB THE SKIN AND SUBCUTANEOUS TISSUE BELOW IT. A SPINAL NEEDLE, 22-GAUGE, WAS ADVANCED UNDER FLUOROSCOPIC GUIDANCE AND FOLLOWING PATIENT FEEDBACK UNTIL THE TARGET AREA WAS TOUCHED. THE POSITION OF THE NEEDLE WAS VERIFIED WITH AP AND LATERAL VIEWS. AFTER PROPER POSITION OF THE NEEDLE WAS ACHIEVED A SOLUTION OF 20 MG OF KENALOG WAS INJECTED IN RIGHT JOINT WITH 3 ML OF BUPIVACAINE 0.125%. THERE WAS NO EVIDENCE OF BLOOD, PARESTHESIA OR CEREBROSPINAL FLUID DURING THE PROCEDURE. THE PATIENT WAS SENT TO THE RECOVERY ROOM. THE PATIENT WAS MOVING THE EXTREMITIES AND DOING WELL. THERE WAS NO COMPLICATION DURING THE PROCEDURE. FLUOROSCOPY TIME WAS 17 SECONDS POST PROCEDURE NOTE THE PATIENT WILL BE SEEN IN A FOLLOW UP IN THE NEXT FEW WEEKS. INSTRUCTIONS WERE GIVEN, QUESTIONS WERE ANSWERED, AND THE PATIENT EXPRESSED UNDERSTANDING AND AGREED WITH THE PLAN. I, JAREN SPAIN, DOCUMENTED THE ABOVE INFORMATION ACTING A SCRIBE FOR DR. BURDEN. I HAVE REVIEWED THE ABOVE DOCUMENT, WRITTEN BY JAREN GARCIAIBEmigdio AND I VERIFY THAT IT IS ACCURATE DIAGNOSTIC IMAGING [facility] FLUORO GUIDANCE (PAIN)[id number] PROCEDURE CODES 24680 INJECT SACROILIAC JOINT 6045F RADXPS IN END [id number] PXD DISPOSITION & COMMUNICATION FOLLOW UP 3 WEEKS ELECTRONICALLY SIGNED BY SELMA BURDEN MD ON 08/08/2017 AT 05:17 PM EDT DISCLAIMER : THIS IS A VISIT SUMMARY EXTRACTED FROM THE [employer] CHART. IT IS NOT A COPY OF THE [employer] PROGRESS NOTE. MTDD
== END ==
LOC: M PAIN 10:00
PROVIDERS: ATTEND Anesthesiology
DX: G89.29 Other chronic pain (principal); M46.1 Sacroiliitis, not elsewhere classified; I10 Essential (primary) hypertension; D64.9 Anemia, unspecified; K21.9 Gastro-esophageal reflux disease without esophagitis; Z79.891 Long term (current) use of opiate analgesic; Z79.899 Other long term (current) drug therapy; Z91.030 Bee allergy status; Z87.891 Personal history of nicotine dependence; Z88.8 Allergy status to other drugs, medicaments and biological substances
CPT/HCPCS: 27096; J3301

== ENCOUNTER → 2017-08-21 | Outpatient (CLI) | payer OTHER ==
[~2017-08-21] MED LIST changes: -BUPIVACAINE HCL 0.25% 30 ML VIAL As Ordered ONE; -LIDOCAINE 1% SDV INJ 30 ML VIAL As Ordered ONE; -TRIAMCINOLONE ACETONIDE SUSP 40 MG/ML VIAL (J3301) As Ordered ONE; -diazePAM 5 MG TAB As Ordered ONE; -oxyCODONE 5MG TAB As Ordered ONE
[2017-08-21 12:28] LABS: ANION GAP 8 MEQ/L (8-16); BLOOD UREA NITROGEN 15 MG/DL (7-18); CALCIUM LEVEL 9.2 MG/DL (8.5-10.1); CARBON DIOXIDE LEVEL 27 MEQ/L (21-32); CHLORIDE LEVEL 109 MEQ/L (98-107); CREATININE FOR GFR 0.66 MG/DL (0.55-1.02); GLOMERULAR FILTRATION RATE > 60.0 (>60); GLUCOSE, FASTING 77 MG/DL (70-105); POTASSIUM SERUM 4.4 MEQ/L (3.5-5.1); SODIUM LEVEL 144 MEQ/L (136-145)
== END ==
LOC: M LAB 11:11
PROVIDERS: ATTEND Family Medicine
DX: R10.31 Right lower quadrant pain (principal)

== ENCOUNTER 2017-09-18 08:10 | Emergency (ER) | payer MEDICAID, OTHER ==
[~2017-09-18] VITALS: Ht 157.5 cm; Wt 70.9 kg
[~2017-09-18 08:10] MED LIST changes: -ARTH650T11 PO; -CELE40TA; -CIPR-249 PO; -DICY20TA11; -HYDR-3719 PO; -TRAZ-136; -ZOFR8TAB PO; -ZONI50CA3; -ZYPR5TAB2
[2017-09-18] MEDS ORDERED: TRAZ-136 (08:29)
[2017-09-18] MEDS ORDERED: ZYPR5TAB2 (08:29)
[2017-09-18] MEDS ORDERED: CELE40TA (08:29)
[2017-09-18] MEDS ORDERED: ZOFR8TAB PO (08:29)
[2017-09-18] MEDS ORDERED: ZONI50CA3 (08:29)
[2017-09-18] MEDS ORDERED: HYDR-3719 PO (08:29)
[2017-09-18] MEDS ORDERED: DICY20TA11 (08:29)
[2017-09-18] MEDS ORDERED: ARTH650T11 PO (08:40)
[2017-09-18] MEDS ORDERED: NS 1,000 ML IV SCH (09:19)
[2017-09-18] MEDS ORDERED: METOCLOPRAMIDE INJ 10MG/2ML VIAL (J2765) IV ONE (09:30)
[2017-09-18] MEDS ORDERED: DICYCLOMINE INJ 20MG/2ML (J0500) IM ONE (09:30)
[2017-09-18 09:59] LABS: BASO % 0.1 % (0.0-1.0); EOS % 0.4 % (0.0-3.0); IMMATURE GRANULOCYTE % 0.4 % (0-0); LYMPH # 1.5 10^3/uL (1.5-4.5); LYMPH % 18.1 % (24.0-44.0); MEAN CORPUSCULAR HEMOGLOBIN 29.3 pg (27.0-33.0); MEAN CORPUSCULAR HGB CONC 32.5 g/dl (32.0-36.5); MEAN CORPUSCULAR VOLUME 90.1 fl (80.0-96.0); MONO # 1.2 10^3/uL (0.0-0.8); MONO % 14.6 % (0.0-5.0); NEUTROPHILS # 5.6 10^3/uL (1.8-7.7); NEUTROPHILS % 66.4 % (36.0-66.0); PLATELET COUNT, AUTOMATED 252 10^3/uL (150-450); RED CELL DISTRIBUTION WIDTH 14.5 % (11.5-14.5); WHITE BLOOD COUNT 8.4 10^3/uL (4.0-10.0)
[2017-09-18 10:31] LABS: CONTROL LINE HCG INT CTR LINE PRESENT
[2017-09-18 10:37] LABS: ALBUMIN 2.8 GM/DL (3.2-5.2); ALBUMIN/GLOBULIN RATIO 0.65 (1.00-1.93); ALKALINE PHOSPHATASE 173 U/L (45-117); ALT/SGPT 29 U/L (12-78); ANION GAP 6 MEQ/L (8-16); AST/SGOT 28 U/L (15-37); BILIRUBIN,DIRECT 0.2 MG/DL (0.0-0.2); BILIRUBIN,TOTAL 0.7 MG/DL (0.2-1.0); BLOOD UREA NITROGEN 8 MG/DL (7-18); CALCIUM LEVEL 8.7 MG/DL (8.5-10.1); CARBON DIOXIDE LEVEL 29 MEQ/L (21-32); CHLORIDE LEVEL 100 MEQ/L (98-107); CREATININE FOR GFR 0.65 MG/DL (0.55-1.02); GLOMERULAR FILTRATION RATE > 60.0 (>60); GLUCOSE, FASTING 91 MG/DL (70-105); POTASSIUM SERUM 4.2 MEQ/L (3.5-5.1); SODIUM LEVEL 135 MEQ/L (136-145); TOTAL PROTEIN 7.1 GM/DL (6.4-8.2)
--- NOTE | 2017-09-18 11:18 | REP ---
ABDOMINAL SERIES: Supine erect views of the abdomen demonstrate no free air and no compelling evidence for small bowel obstruction. No air fluid levels are seen in the upright view and there does not appear to be significant small bowel dilatation. Air is scattered throughout the GI tract in a nonspecific pattern. There appears to be a phlebolith in the right pelvis. There are metallic clips in the right upper quadrant. The lungs are clear. The heart is normal in size and the mediastinal silhouette is unremarkable. IMPRESSION: No free air and no compelling radiographic evidence for small bowel obstruction. Nonspecific bowel gas pattern. Signed by Branden Beltrán MD 09/18/2017 01:01 P
[2017-09-18] MEDS ORDERED: GASTROGRAFIN SOLUTION 30ML PO ONE (11:35)
[2017-09-18] MEDS ORDERED: GASTROGRAFIN SOLUTION 30ML (Q9963) PO ONE (12:05)
[2017-09-18] MEDS ORDERED: ISOVUE-370 76% 100ML VIAL (Q9967) As Ordered ONE (13:16)
--- NOTE | 2017-09-18 14:20 | REP ---
CT ABDOMEN AND PELVIS WITH ORAL AND IV CONTRAST: CT ABDOMEN AND PELVIS WITH CONTRAST: TECHNIQUE: Axial contrast enhanced images from the lung bases to the pubic symphysis using 100 mL Isovue 370 intravenous contrast material with multiplanar reformations. COMPARISON: 10/12/2015 Visualized lung bases demonstrate no infiltrate. The liver appears unremarkable. The patient has had a prior cholecystectomy and prior gastric bypass surgery. The common bile duct is mildly prominent in size as expected. The spleen, adrenals, pancreas and left kidney appear unremarkable. There is no hydronephrosis bilaterally. The right kidney demonstrates ill-defined hypodense areas in the peripheral cortex diffusely suggesting right-sided pyelonephritis. I see no adenopathy. There is no free air or free fluid. No bowel wall thickening is seen. The urinary bladder is not distended and not evaluated. There does appear to be a right ovarian cyst approximately 6 cm in diameter. IMPRESSION: The findings highly suggestive of right-sided pyelonephritis. No hydronephrosis. There is a 6 cm right ovarian cyst. There is no free air or free fluid. Signed by Branden Beltrán MD 09/18/2017 05:06 P
[2017-09-18] MEDS ORDERED: CIPROFLOXACIN 400 MG in APPROPRIATE DILUENT 1 EA IV ONE (15:30)
[2017-09-18 16:23] VITALS: BP 137/79
[2017-09-18] MEDS ORDERED: CIPR-249 PO (16:55)
== END 2017-09-18 17:49 | disposition home or self-care (01) ==
LOC: M ED 09:42
DX: N10 Acute pyelonephritis (principal); N83.201 Unspecified ovarian cyst, right side; I10 Essential (primary) hypertension; D64.9 Anemia, unspecified; K21.9 Gastro-esophageal reflux disease without esophagitis; M51.37 Other intervertebral disc degeneration, lumbosacral region; F33.9 Major depressive disorder, recurrent, unspecified; F40.10 Social phobia, unspecified; Z79.899 Other long term (current) drug therapy; Z88.8 Allergy status to other drugs, medicaments and biological substances; Z91.030 Bee allergy status
CPT/HCPCS: 74022; 74177; 80048; 80076; 81001; 83605; 83690; 84703; 85025; 93041; 96361; 96372; 96374; 99285; J0500; J0744; J2765; Q9963; Q9967

== ENCOUNTER → 2017-11-11 | Outpatient (CLI) | payer OTHER ==
[~2017-11-11] MED LIST changes: -ALBU17IN2 IN; -ALBU83IN IN; -AMOX500T PO; -BISO5TAB5 PO; -CALC600T7 PO; -CLAR1TAB2 PO; -CLAR5CHW OR; -CLARITIN OR; -CYCL5TA PO; -CYTO100T PO; -DIOV160T6 PO; -DULO30CA PO; -ENEMENE16 PR; -EPIP0.3I2 INJ; -ERGO500014 PO; -FERR325T OR; -FLOXIN OTIC AD; -GABA-282 PO; -GABA-283 PO; -HYDR25OIN TOP; -HYDR25TA6 OR; -LABE30TA OR; -LIDO1OIN2 TOP; -LISI10TA4 OR; -LISI10TA4 PO; -MECL-68 PO; -MOME50SP; -MULTIVIT OR; -NASONEX; -NORC7.5T35 PO; -PAXI20TA29 PO; -PREV15CA OR; -PRIL40CA OR; -PRIL40CA PO; -PROAAER10 INH; -PROTPAK PO; -RANI15TA PO; -REME15TA PO; -REME15TA2 PO; -ROBA750T4 PO; -SKEL800T5 OR; -SOMA350T PO; -SPIR25TA2 PO; -TRAM50TA2 PO; -VICO5TAB OR; -VITAMIN D50000 UNT OR; -VOLT1GEL15 TD; -VOLT1GEL15 TOP; -XARE20TA PO; -ZOFR20TA PO; -ZOLO50TA PO; +ePHEDrine SULFATE 25 MG/5 ML(5MG/ML) SYRINGE As Ordered; -hydrocodone PO
== END ==
LOC: M PAIN 14:15
DX: M51.26 Other intervertebral disc displacement, lumbar region (principal); M46.1 Sacroiliitis, not elsewhere classified; I10 Essential (primary) hypertension; Z79.891 Long term (current) use of opiate analgesic; Z79.899 Other long term (current) drug therapy; Z91.030 Bee allergy status; Z88.8 Allergy status to other drugs, medicaments and biological substances; Z98.84 Bariatric surgery status; Z87.891 Personal history of nicotine dependence
CPT/HCPCS: G0463

== ENCOUNTER → 2017-11-21 | Outpatient (CLI) | payer OTHER ==
[~2017-11-21] MED LIST changes: +BUPIVACAINE HCL 0.25% 30 ML VIAL As Ordered; +ISOVUE-M 300 61% 15ML VIAL (Q9967) As Ordered; +LIDOCAINE 1% SDV INJ 30 ML VIAL As Ordered; +TRIAMCINOLONE ACETONIDE SUSP 40 MG/ML VIAL (J3301) As Ordered; +diazePAM 5 MG TAB As Ordered; -ePHEDrine SULFATE 25 MG/5 ML(5MG/ML) SYRINGE As Ordered; +oxyCODONE 5MG TAB As Ordered
== END ==
LOC: M PAIN 14:45
DX: G89.29 Other chronic pain (principal); M46.1 Sacroiliitis, not elsewhere classified; E66.9 Obesity, unspecified; I10 Essential (primary) hypertension; D64.9 Anemia, unspecified; K21.9 Gastro-esophageal reflux disease without esophagitis; R35.0 Frequency of micturition; M79.662 Pain in left lower leg; Z87.891 Personal history of nicotine dependence; Z85.41 Personal history of malignant neoplasm of cervix uteri; Z79.891 Long term (current) use of opiate analgesic; Z79.899 Other long term (current) drug therapy; Z91.030 Bee allergy status; Z88.6 Allergy status to analgesic agent; Z88.8 Allergy status to other drugs, medicaments and biological substances
CPT/HCPCS: J3301

== ENCOUNTER → 2017-12-05 | Outpatient (CLI) | payer OTHER | LOC: M PAIN 10:30 | DX: M46.1 Sacroiliitis, not elsewhere classified (principal); M54.16 Radiculopathy, lumbar region; D64.9 Anemia, unspecified; I10 Essential (primary) hypertension; K21.9 Gastro-esophageal reflux disease without esophagitis; F32.9 Major depressive disorder, single episode, unspecified; Z79.891 Long term (current) use of opiate analgesic; Z79.899 Other long term (current) drug therapy; Z91.030 Bee allergy status; Z88.8 Allergy status to other drugs, medicaments and biological substances; Z87.891 Personal history of nicotine dependence; Z85.41 Personal history of malignant neoplasm of cervix uteri | CPT/HCPCS: G0463 ==

== ENCOUNTER → 2018-01-01 | Outpatient (REF) | payer OTHER, MEDICAID ==
[2018-01-01 19:19] LABS: APPEARANCE, URINE HAZY (CLEAR); BACTERIA, URINE AUTO NEGATIVE (NEGATIVE); BILIRUBIN, URINE AUTO NEGATIVE (NEGATIVE); BLOOD, URINE BLOOD NEGATIVE (NEGATIVE); COLOR, URINE YELLOW (YELLOW); GLUCOSE, URINE (UA) AUTO NEGATIVE (NEGATIVE); KETONE, URINE AUTO NEGATIVE (NEGATIVE); LEUKOCYTE ESTERASE, URINE AUTO NEGATIVE (NEGATIVE); MUCUS, URINE SMALL (NEGATIVE); NITRITE, URINE AUTO NEGATIVE (NEGATIVE); PROTEIN, URINE AUTO NEGATIVE (NEGATIVE); RBC, URINE AUTO 0 /HPF (0-3); SPECIFIC GRAVITY URINE AUTO 1.019 (1.002-1.035); SQUAMOUS EPITHELIAL CELL UR AU 4 /HPF (0-6); WBC, URINE AUTO 1 /HPF (0-3)
== END ==
LOC: M LAB REF 18:10
DX: N39.0 Urinary tract infection, site not specified (principal)

== ENCOUNTER → 2018-01-06 | Outpatient (CLI) | payer OTHER | LOC: M RAD 12:52 | DX: N83.292 Other ovarian cyst, left side (principal) | CPT/HCPCS: 76856 ==

== ENCOUNTER → 2018-02-03 | Outpatient (CLI) | payer OTHER | LOC: M PAIN 13:00 | DX: M46.1 Sacroiliitis, not elsewhere classified (principal); M54.16 Radiculopathy, lumbar region; I10 Essential (primary) hypertension; K21.9 Gastro-esophageal reflux disease without esophagitis; Z79.891 Long term (current) use of opiate analgesic; Z79.899 Other long term (current) drug therapy; Z87.891 Personal history of nicotine dependence; Z91.030 Bee allergy status; Z88.8 Allergy status to other drugs, medicaments and biological substances | CPT/HCPCS: G0463 ==

== ENCOUNTER → 2018-02-10 | Outpatient (CLI) | payer OTHER ==
[2018-02-10 11:22] LABS: HEMATOCRIT 34.7 % (36.0-47.0); HEMOGLOBIN 11.1 g/dl (12.0-16.0); MEAN CORPUSCULAR HEMOGLOBIN 28.2 pg (27.0-33.0); MEAN CORPUSCULAR VOLUME 88.1 fl (80.0-96.0); PLATELET COUNT, AUTOMATED 355 10^3/uL (150-450); RED BLOOD COUNT 3.94 10^6/uL (4.00-5.40); RED CELL DISTRIBUTION WIDTH 13.2 % (11.5-14.5); WHITE BLOOD COUNT 5.1 10^3/uL (4.0-10.0)
[2018-02-10 11:23] LABS: HEMATOCRIT 34.7 % (36.0-47.0)
[2018-02-10 12:05] LABS: ALBUMIN 3.5 GM/DL (3.2-5.2); ALBUMIN/GLOBULIN RATIO 1.13 (1.00-1.93); ALKALINE PHOSPHATASE 126 U/L (45-117); ALT/SGPT 19 U/L (12-78); ANION GAP 5 MEQ/L (8-16); AST/SGOT 21 U/L (7-37); BILIRUBIN,TOTAL 1.9 MG/DL (0.2-1.0); BLOOD UREA NITROGEN 13 MG/DL (7-18); CALCIUM LEVEL 8.6 MG/DL (8.5-10.1); CARBON DIOXIDE LEVEL 30 MEQ/L (21-32); CHLORIDE LEVEL 106 MEQ/L (98-107); CREATININE FOR GFR 0.55 MG/DL (0.55-1.30); FERRITIN 5 NG/ML (8-252); GLOMERULAR FILTRATION RATE > 60.0 (>60); GLUCOSE, FASTING 79 MG/DL (70-100); IRON (FE) 74 UG/DL (50-170); PERCENT SATURATION 17.6 % (13.2-45.0); POTASSIUM SERUM 4.1 MEQ/L (3.5-5.1); SODIUM LEVEL 141 MEQ/L (136-145); TOTAL IRON BINDING CAPACITY 421 UG/DL (250-450); TOTAL PROTEIN 6.6 GM/DL (6.4-8.2)
[2018-02-10 12:39] LABS: VITAMIN B12 LEVEL 269 PG/ML (247-911)
[2018-02-10 12:42] LABS: TOTAL 25(OH) VITAMIN D 9.4 NG/ML (30.0-100.0)
[2018-02-11 10:54] LABS: PRETREATED FOLATE FOR RBCFOL 3.3 NG/ML; RBC FOLATE 199.7 NG/ML (280-791)
== END ==
LOC: M LAB 11:02
DX: Z98.84 Bariatric surgery status (principal)
CPT/HCPCS: 83550

== ENCOUNTER → 2018-02-10 | Outpatient (CLI) | payer OTHER ==
[~2018-02-10] MED LIST changes: +diphenhydrAMINE 25 MG CAP As Ordered
== END ==
LOC: M PAIN 11:30
DX: G89.29 Other chronic pain (principal); M46.1 Sacroiliitis, not elsewhere classified; I10 Essential (primary) hypertension; Z79.891 Long term (current) use of opiate analgesic; Z79.899 Other long term (current) drug therapy; Z91.030 Bee allergy status; Z88.8 Allergy status to other drugs, medicaments and biological substances; Z87.891 Personal history of nicotine dependence
CPT/HCPCS: J3301

== ENCOUNTER 2018-02-28 10:24 | Day surgery (SDC) | payer OTHER ==
[~2018-02-28 10:24] MED LIST changes: -BUPIVACAINE HCL 0.25% 30 ML VIAL As Ordered; +GLYCOPYRROLATE INJ 0.2 MG/ML 2 ML VIAL As Ordered; +HYDROmorphone HCL 2 MG/ML 1ML VIAL (J1170) As Ordered; -ISOVUE-M 300 61% 15ML VIAL (Q9967) As Ordered; +KETOROLAC 60 MG/2 ML VIAL (J1885) As Ordered; -LIDOCAINE 1% SDV INJ 30 ML VIAL As Ordered; +LIDOCAINE 2% INJ 100 MG/5 ML SDV (FOR ANES.) As Ordered; +MIDAZOLAM INJ 2 MG/2 ML VIAL (J2250) As Ordered; +NEOSTIGMINE 10 MG/10 ML VIAL (J2710) As Ordered; +ONDANSETRON 4MG/2ML VIAL (J2405) As Ordered; +PROPOFOL 200 MG/20 ML VIAL As Ordered; +ROCURONIUM BROMIDE 50 MG/5 ML VIAL As Ordered; -TRIAMCINOLONE ACETONIDE SUSP 40 MG/ML VIAL (J3301) As Ordered; +dexameTHASONE 4 MG/ML 1ML VIAL (J1100) As Ordered; -diazePAM 5 MG TAB As Ordered; -diphenhydrAMINE 25 MG CAP As Ordered; +fentaNYL 100 MCG/2 ML INJECTION (J3010) As Ordered; -oxyCODONE 5MG TAB As Ordered
[2018-02-28 10:52] LABS: HEMOGLOBIN 11.9 g/dl (12.0-15.5); MEAN CORPUSCULAR HEMOGLOBIN 29.3 pg (27.0-33.0); MEAN CORPUSCULAR HGB CONC 32.2 g/dl (32.0-36.5); MEAN CORPUSCULAR VOLUME 91.1 fl (80.0-96.0); PLATELET COUNT, AUTOMATED 391 10^3/uL (150-450); RED BLOOD COUNT 4.06 10^6/uL (4.00-5.40); RED CELL DISTRIBUTION WIDTH 13.9 % (11.5-14.5); WHITE BLOOD COUNT 5.9 10^3/uL (4.0-10.0)
[2018-02-28] MEDS: LR 1,000 ML IV ×4 (11:20→23:00)
[2018-02-28 11:25] LABS: ANION GAP 3 MEQ/L (8-16); BLOOD UREA NITROGEN 12 MG/DL (7-18); CALCIUM LEVEL 8.6 MG/DL (8.5-10.1); CARBON DIOXIDE LEVEL 30 MEQ/L (21-32); CHLORIDE LEVEL 109 MEQ/L (98-107); CREATININE FOR GFR 0.76 MG/DL (0.55-1.30); GLOMERULAR FILTRATION RATE > 60.0 (>60); GLUCOSE, FASTING 83 MG/DL (70-100); POTASSIUM SERUM 3.8 MEQ/L (3.5-5.1); SODIUM LEVEL 142 MEQ/L (136-145)
[2018-02-28] MEDS: CEFAZOLIN SOD 1 GM in APPROPRIATE DILUENT 1 EA IV (12:11)
[2018-02-28] MEDS ORDERED: ePHEDrine SULFATE 25 MG/5 ML(5MG/ML) SYRINGE As Ordered (13:15)
[2018-02-28] MEDS ORDERED: PHENYLephrine HCL 500 MCG/5 ML (100MCG/ML) SYRINGE (J2370) As Ordered (13:15)
[2018-02-28] MEDS: BUPIVACAINE HCL 0.25% 30 ML VIAL As Ordered (13:30)
[2018-02-28] MEDS: METHYLENE BLUE 0.5% (5MG/ML) 10 ML AMP (PROVAYBLUE)(Q9968 PER 1MG) As Ordered (13:47)
[2018-02-28] MEDS ORDERED: fentaNYL 100 MCG/2 ML INJECTION (J3010) As Ordered (14:48)
[2018-02-28] MEDS: fentaNYL 100 MCG/2 ML INJECTION (J3010) IV ×4 (14:50→15:05)
[2018-02-28] MEDS ORDERED: ONDANSETRON 4MG/2ML VIAL (J2405) IV (15:00)
[2018-02-28] MEDS ORDERED: PERCOCET 5MG/325MG TAB PO (15:00)
[2018-02-28] MEDS: HYDROmorphone HCL 1 MG/ML SYRINGE (J1170) IV ×7 (15:10→16:00)
[2018-02-28] MEDS ORDERED: diphenhydrAMINE INJ 50MG/ML VIAL (J1200) As Ordered (15:18)
[2018-02-28] MEDS: diphenhydrAMINE INJ 50MG/ML VIAL (J1200) IV (15:20)
[2018-02-28] MEDS: PERCOCET 5MG/325MG TAB PO ×3 (15:30→22:40)
[2018-02-28] MEDS ORDERED: HYDROmorphone HCL 1 MG/ML SYRINGE (J1170) As Ordered (15:48)
[2018-02-28] MEDS: ONDANSETRON 4MG/2ML VIAL (J2405) IV (19:03)
[2018-02-28] MEDS: MORPHINE 4 MG/ML 1ML VIAL (J2270) IV (20:08)
[2018-02-28] MEDS: KETOROLAC 30 MG/ML VIAL (J1885) IV (21:21)
[2018-02-28] MEDS: DOCUSATE SODIUM 100 MG CAP PO (21:22)
[2018-03-01] MEDS: PERCOCET 5MG/325MG TAB PO ×3 (03:21→11:55)
[2018-03-01] MEDS: KETOROLAC 30 MG/ML VIAL (J1885) IV (06:07)
[2018-03-01] MEDS: LR 1,000 ML IV (07:00)
[2018-03-01] MEDS: DOCUSATE SODIUM 100 MG CAP PO (09:32)
== END 2018-03-01 15:15 | disposition home or self-care (01) ==
LOC: M SDC 10:24 → M PED 16:28
DX: N94.6 Dysmenorrhea, unspecified (principal); N80.0 Endometriosis of uterus; N72 Inflammatory disease of cervix uteri; I10 Essential (primary) hypertension; I34.1 Nonrheumatic mitral (valve) prolapse; K22.4 Dyskinesia of esophagus; M51.9 Unspecified thoracic, thoracolumbar and lumbosacral intervertebral disc disorder; E55.9 Vitamin D deficiency, unspecified; K21.9 Gastro-esophageal reflux disease without esophagitis; R00.2 Palpitations; D64.9 Anemia, unspecified; M17.12 Unilateral primary osteoarthritis, left knee; F41.9 Anxiety disorder, unspecified; F32.9 Major depressive disorder, single episode, unspecified; J45.909 Unspecified asthma, uncomplicated; Z88.6 Allergy status to analgesic agent; Z88.8 Allergy status to other drugs, medicaments and biological substances; Z91.030 Bee allergy status; Z79.899 Other long term (current) drug therapy; Z85.41 Personal history of malignant neoplasm of cervix uteri; Z98.51 Tubal ligation status; Z98.84 Bariatric surgery status; Z87.891 Personal history of nicotine dependence
CPT/HCPCS: 58570

== ENCOUNTER → 2018-03-06 | Outpatient (REF) | payer OTHER | LOC: M LAB REF 13:06 | DX: R30.0 Dysuria (principal) ==

== ENCOUNTER → 2018-03-21 | Outpatient (CLI) | payer OTHER | LOC: M PLARAD 09:12 | DX: M46.1 Sacroiliitis, not elsewhere classified (principal) | CPT/HCPCS: 72148 ==

== ENCOUNTER → 2018-03-26 | Outpatient (REF) | payer OTHER ==
[2018-03-26 12:00] LABS: HEMOGLOBIN 10.2 g/dl (12.0-15.5); MEAN CORPUSCULAR HEMOGLOBIN 27.6 pg (27.0-33.0); MEAN CORPUSCULAR HGB CONC 30.9 g/dl (32.0-36.5); MEAN CORPUSCULAR VOLUME 89.4 fl (80.0-96.0); PLATELET COUNT, AUTOMATED 550 10^3/uL (150-450); RED BLOOD COUNT 3.69 10^6/uL (4.00-5.40); RED CELL DISTRIBUTION WIDTH 13.3 % (11.5-14.5); WHITE BLOOD COUNT 6.1 10^3/uL (4.0-10.0)
[2018-03-26 12:21] LABS: ALBUMIN 3.2 GM/DL (3.2-5.2); ALBUMIN/GLOBULIN RATIO 0.86 (1.00-1.93); ALKALINE PHOSPHATASE 115 U/L (45-117); ALT/SGPT 14 U/L (12-78); ANION GAP 7 MEQ/L (8-16); AST/SGOT 17 U/L (7-37); BILIRUBIN,TOTAL 0.8 MG/DL (0.2-1.0); BLOOD UREA NITROGEN 9 MG/DL (7-18); CALCIUM LEVEL 8.7 MG/DL (8.5-10.1); CARBON DIOXIDE LEVEL 27 MEQ/L (21-32); CHLORIDE LEVEL 109 MEQ/L (98-107); CREATININE FOR GFR 0.57 MG/DL (0.55-1.30); GLOMERULAR FILTRATION RATE > 60.0 (>60); GLUCOSE, FASTING 76 MG/DL (70-100); POTASSIUM SERUM 3.9 MEQ/L (3.5-5.1); SODIUM LEVEL 143 MEQ/L (136-145); TOTAL PROTEIN 6.9 GM/DL (6.4-8.2)
== END ==
LOC: M SFHCPLAZ 09:37
DX: D64.9 Anemia, unspecified (principal); R79.89 Other specified abnormal findings of blood chemistry

== ENCOUNTER → 2018-03-28 | Outpatient (CLI) | payer OTHER | END | disposition home or self-care (01) | LOC: M PAIN 10:45 | DX: G89.29 Other chronic pain (principal); M46.1 Sacroiliitis, not elsewhere classified; M54.16 Radiculopathy, lumbar region; I10 Essential (primary) hypertension; D64.9 Anemia, unspecified; K21.9 Gastro-esophageal reflux disease without esophagitis; E66.01 Morbid (severe) obesity due to excess calories; Z79.899 Other long term (current) drug therapy; Z88.8 Allergy status to other drugs, medicaments and biological substances; Z91.030 Bee allergy status; Z87.891 Personal history of nicotine dependence | CPT/HCPCS: G0463 ==

== ENCOUNTER → 2018-04-08 | Outpatient (CLI) | payer OTHER ==
[~2018-04-08] MED LIST changes: +BUPIVACAINE HCL 0.25% 30 ML VIAL As Ordered; -GLYCOPYRROLATE INJ 0.2 MG/ML 2 ML VIAL As Ordered; -HYDROmorphone HCL 2 MG/ML 1ML VIAL (J1170) As Ordered; +ISOVUE-M 300 61% 15ML VIAL (Q9967) As Ordered; -KETOROLAC 60 MG/2 ML VIAL (J1885) As Ordered; +LIDOCAINE 1% SDV INJ 30 ML VIAL As Ordered; -LIDOCAINE 2% INJ 100 MG/5 ML SDV (FOR ANES.) As Ordered; -MIDAZOLAM INJ 2 MG/2 ML VIAL (J2250) As Ordered; -NEOSTIGMINE 10 MG/10 ML VIAL (J2710) As Ordered; -ONDANSETRON 4MG/2ML VIAL (J2405) As Ordered; -PROPOFOL 200 MG/20 ML VIAL As Ordered; -ROCURONIUM BROMIDE 50 MG/5 ML VIAL As Ordered; +TRIAMCINOLONE ACETONIDE SUSP 40 MG/ML VIAL (J3301) As Ordered; -dexameTHASONE 4 MG/ML 1ML VIAL (J1100) As Ordered; +diazePAM 5 MG TAB As Ordered; +diphenhydrAMINE 25 MG CAP As Ordered; +diphenhydrAMINE INJ 50MG/ML VIAL (J1200) As Ordered; -fentaNYL 100 MCG/2 ML INJECTION (J3010) As Ordered; +oxyCODONE 5MG TAB As Ordered
== END | disposition home or self-care (01) ==
LOC: M PAIN 11:15
DX: G89.29 Other chronic pain (principal); M46.1 Sacroiliitis, not elsewhere classified; E66.9 Obesity, unspecified; I10 Essential (primary) hypertension; D64.9 Anemia, unspecified; K21.9 Gastro-esophageal reflux disease without esophagitis; Z98.84 Bariatric surgery status; Z79.899 Other long term (current) drug therapy; Z88.8 Allergy status to other drugs, medicaments and biological substances; Z91.030 Bee allergy status; Z87.891 Personal history of nicotine dependence
CPT/HCPCS: J3301

== ENCOUNTER → 2018-06-03 | Outpatient (REF) | payer OTHER, MEDICAID ==
[2018-06-03 18:20] LABS: ANION GAP 8 MEQ/L (8-16); BLOOD UREA NITROGEN 11 MG/DL (7-18); CALCIUM LEVEL 8.7 MG/DL (8.5-10.1); CARBON DIOXIDE LEVEL 27 MEQ/L (21-32); CHLORIDE LEVEL 106 MEQ/L (98-107); GLOMERULAR FILTRATION RATE > 60.0 (>60); GLUCOSE, FASTING 83 MG/DL (70-100); POTASSIUM SERUM 4.5 MEQ/L (3.5-5.1); SODIUM LEVEL 141 MEQ/L (136-145)
== END ==
LOC: M LAB REF 17:08
DX: R55 Syncope and collapse (principal); I10 Essential (primary) hypertension
CPT/HCPCS: 83735

== ENCOUNTER → 2018-06-06 | Outpatient (CLI) | payer OTHER | LOC: M EKG 12:55 | DX: R55 Syncope and collapse (principal); S69.81XA Other specified injuries of right wrist, hand and finger(s), initial encounter; W18.30XA Fall on same level, unspecified, initial encounter; Y92.009 Unspecified place in unspecified non-institutional (private) residence as the place of occurrence of the external cause | CPT/HCPCS: 73110 ==

== ENCOUNTER → 2018-06-26 | Outpatient (CLI) | payer OTHER | LOC: M PAIN 09:30 | DX: Z53.29 Procedure and treatment not carried out because of patient's decision for other reasons (principal) ==

== ENCOUNTER → 2018-07-24 | Outpatient (CLI) | payer OTHER | LOC: M PAIN 09:15 | DX: M46.1 Sacroiliitis, not elsewhere classified (principal); M51.06 Intervertebral disc disorders with myelopathy, lumbar region; M54.16 Radiculopathy, lumbar region; E66.9 Obesity, unspecified; Z68.30 Body mass index [BMI] 30.0-30.9, adult; I10 Essential (primary) hypertension; D64.9 Anemia, unspecified; K21.9 Gastro-esophageal reflux disease without esophagitis; M51.27 Other intervertebral disc displacement, lumbosacral region; Z98.84 Bariatric surgery status; Z85.41 Personal history of malignant neoplasm of cervix uteri; R35.0 Frequency of micturition; Z90.710 Acquired absence of both cervix and uterus; Z79.891 Long term (current) use of opiate analgesic; Z87.891 Personal history of nicotine dependence; Z79.899 Other long term (current) drug therapy; Z90.49 Acquired absence of other specified parts of digestive tract; Z91.030 Bee allergy status; Z88.6 Allergy status to analgesic agent; Z88.8 Allergy status to other drugs, medicaments and biological substances | CPT/HCPCS: G0463 ==

== ENCOUNTER → 2018-08-19 | Outpatient (CLI) | payer OTHER | LOC: M PAIN 08:45 | DX: M46.1 Sacroiliitis, not elsewhere classified (principal); E66.9 Obesity, unspecified; Z68.30 Body mass index [BMI] 30.0-30.9, adult; I10 Essential (primary) hypertension; D64.9 Anemia, unspecified; K21.9 Gastro-esophageal reflux disease without esophagitis; M51.26 Other intervertebral disc displacement, lumbar region; M79.662 Pain in left lower leg; R35.0 Frequency of micturition; Z85.41 Personal history of malignant neoplasm of cervix uteri; Z90.710 Acquired absence of both cervix and uterus; Z87.891 Personal history of nicotine dependence; Z98.84 Bariatric surgery status; Z90.49 Acquired absence of other specified parts of digestive tract; Z79.891 Long term (current) use of opiate analgesic; Z79.899 Other long term (current) drug therapy; Z91.030 Bee allergy status; Z88.6 Allergy status to analgesic agent; Z88.8 Allergy status to other drugs, medicaments and biological substances | CPT/HCPCS: J3301 ==

== ENCOUNTER 2018-10-07 17:48 | Emergency (ER) | payer OTHER ==
[2018-10-07 18:16] LABS: BASO % 0.3 % (0.0-1.0); EOS # 0.1 10^3/uL (0.0-0.50); EOS % 1.6 % (0.0-3.0); HEMATOCRIT 36.1 % (36.0-47.0); HEMOGLOBIN 11.3 g/dl (12.0-15.5); IMMATURE GRANULOCYTE % 0.2 % (0-3.0); LYMPH # 2.9 10^3/uL (1.5-4.5); MEAN CORPUSCULAR HEMOGLOBIN 27.6 pg (27.0-33.0); MEAN CORPUSCULAR HGB CONC 31.3 g/dl (32.0-36.5); MONO # 0.4 10^3/uL (0.0-0.8); MONO % 7.1 % (0.0-5.0); NEUTROPHILS # 2.6 10^3/uL (1.8-7.7); NEUTROPHILS % 42.8 % (36.0-66.0); PLATELET COUNT, AUTOMATED 339 10^3/uL (150-450); RED CELL DISTRIBUTION WIDTH 15.8 % (11.5-14.5); WHITE BLOOD COUNT 6.1 10^3/uL (4.0-10.0)
[2018-10-07 18:35] LABS: D-DIMER QUANT < 270.0 ng/ml (<500)
[2018-10-07 18:48] LABS: ANION GAP 8 MEQ/L (8-16); BLOOD UREA NITROGEN 16 MG/DL (7-18); CALCIUM LEVEL 8.9 MG/DL (8.5-10.1); CARBON DIOXIDE LEVEL 28 MEQ/L (21-32); CHLORIDE LEVEL 105 MEQ/L (98-107); CPK CREATINE PHOSPHOKINASE 113 U/L (26-192); CREATININE FOR GFR 0.61 MG/DL (0.55-1.30); GLOMERULAR FILTRATION RATE > 60.0 (>60); GLUCOSE, FASTING 87 MG/DL (70-100); MB/CK RELATIVE INDEX 0.97 (< OR =4); POTASSIUM SERUM 3.8 MEQ/L (3.5-5.1); SODIUM LEVEL 141 MEQ/L (136-145); TROPONIN I 0.04 NG/ML (< 0.10)
[2018-10-07] MEDS: methylPREDNISolone INJ 125 MG/2 ML VIAL (J2930) IV (20:09)
[2018-10-07] MEDS: KETOROLAC 30 MG/ML VIAL (J1885) IV (20:10)
[2018-10-07] MEDS: diazePAM 5 MG TAB PO (20:10)
[2018-10-07] MEDS: LIDOCAINE 5% (LIDODERM) PATCH TD (21:49)
[2018-10-08] MEDS ORDERED: **NOTE PATIENT COMMENT** MISC XX (21:00)
== END 2018-10-07 22:01 | disposition home or self-care (01) ==
LOC: M ED 17:48
DX: M54.10 Radiculopathy, site unspecified (principal); R07.89 Other chest pain; I10 Essential (primary) hypertension; F33.9 Major depressive disorder, recurrent, unspecified; F41.9 Anxiety disorder, unspecified; Z86.718 Personal history of other venous thrombosis and embolism; Z88.8 Allergy status to other drugs, medicaments and biological substances; Z91.030 Bee allergy status; Z79.899 Other long term (current) drug therapy
CPT/HCPCS: J1885

== ENCOUNTER 2019-01-28 21:28 | Emergency (ER) | payer OTHER ==
[~2019-01-28] VITALS: Ht 157.5 cm; Wt 79.2 kg
[~2019-01-28 21:28] MED LIST changes: +ALBU17IN2 IN; +ALBU83IN IN; +AMOX500T PO; +ARTH650T11 PO; +BISO5TAB5 PO; -BUPIVACAINE HCL 0.25% 30 ML VIAL As Ordered; +CALC600T7 PO; +CELE40TA; +CIPR-249 PO; +CLAR1TAB2 PO; +CLAR5CHW OR; +CLARITIN OR; +CYCL5TA PO; +CYTO100T PO; +DICY20TA11 PO; +DIOV160T6 PO; +DULO30CA PO; +ENEMENE4 PR; +EPIP0.3I2 INJ; +ERGO500014 PO; +FERR325T OR; +FLOXIN OTIC AD; +GABA-843 PO; +GABA-845 PO; +HYDR-3719 PO; +HYDR25OIN TOP; +HYDR25TA6 OR; -ISOVUE-M 300 61% 15ML VIAL (Q9967) As Ordered; +LABE30TA OR; +LIDO1OIN2 TOP; -LIDOCAINE 1% SDV INJ 30 ML VIAL As Ordered; +LISI10TA4 OR; +LISI10TA4 PO; +MECL-68 PO; +MEDR4PAK PO; +MOME50SP; +MULTIVIT OR; +NASONEX; +NORC7.5T35 PO; +PAXI20TA29 PO; +PERC5TAB12 PO; +PREV15CA OR; +PRIL40CA OR; +PRIL40CA PO; +PROAAER10 INH; +PROTPAK PO; +RANI15TA PO; +REME15TA PO; +REME15TA2 PO; +ROBA750T4 PO; +SKEL800T5 OR; +SOMA350T PO; +SPIR-10 PO; +TRAM50TA2 PO; +TRAZ-163 PO; -TRIAMCINOLONE ACETONIDE SUSP 40 MG/ML VIAL (J3301) As Ordered; +VICO5TAB OR; +VITAMIN D50000 UNT OR; +VOLT1GEL15 TD; +VOLT1GEL15 TOP; +XARE20TA PO; +ZANA4TAB PO; +ZOFR4TAB16 PO; +ZOFR8TAB24 PO; +ZOLO50TA PO; +ZONI50CA3 PO; +ZYPR5TAB2; -diazePAM 5 MG TAB As Ordered; -diphenhydrAMINE 25 MG CAP As Ordered; -diphenhydrAMINE INJ 50MG/ML VIAL (J1200) As Ordered; +hydrocodone PO; -oxyCODONE 5MG TAB As Ordered
[2019-01-28] MEDS ORDERED: LISI-538 PO (21:40)
[2019-01-28] MEDS ORDERED: PROTPAK PO (21:41)
[2019-01-28] MEDS ORDERED: SUCR1TA PO (21:41)
[2019-01-28] MEDS ORDERED: TRAM50TA2 PO (23:23)
[2019-01-28 23:24] VITALS: BP 158/103
[2019-01-28] MEDS ORDERED: traMADol 50 MG TAB PO ONE ×2 (23:30)
--- NOTE | 2019-01-29 08:05 | REP ---
Clinical: Trauma. Technique: AP, lateral, bilateral oblique views right hand . Findings: The osseous structures and joint spaces are intact and normal. There is no evidence for acute fracture or dislocation. Surrounding soft tissues are unremarkable. No subcutaneous emphysema or radiodense foreign body. Impression: Normal right hand examination . No acute fracture or dislocation. Electronically Signed by Ignacio Cruz MD 01/29/2019 07:56 A
== END 2019-01-28 23:39 | disposition home or self-care (01) ==
LOC: M ED 21:28
DX: M79.641 Pain in right hand (principal); I10 Essential (primary) hypertension; J45.909 Unspecified asthma, uncomplicated; Z98.84 Bariatric surgery status; Z79.899 Other long term (current) drug therapy; Z88.8 Allergy status to other drugs, medicaments and biological substances; Z91.030 Bee allergy status

== ENCOUNTER → 2019-05-09 | Outpatient (CLI) | payer OTHER ==
[~2019-05-09] MED LIST changes: -CYCL5TA PO; +CYCL5TAB5 PO; -DULO30CA PO; +DULO30CA9 PO; -ERGO500014 PO; +LISI-538 PO; +NORC1TAB8 PO; -NORC7.5T35 PO; +SUCR1TA PO; +VITA500045 PO
--- NOTE | 2019-05-09 14:34 | REP ---
MR lumbar spine without contrast History: Back pain Comparison: 03/21/2018 Decreased signal intensity on T2-weighted images is present in the L5-L1 intervertebral disc. The disc is decreased in height. These findings are consistent with disc degeneration. There is no disc bulge or herniation at the L1-2 through L3-4 levels. There is hypertrophy of the ligamenta flava and posterior articulating facets at the L3-4 level. The nerves exit the neural foramina without compression. A diffuse disc bulge is present at the L4-5 level. There is minimal compression of the thecal sac. There is hypertrophy of the ligamenta flava and posterior articulating facets. The L4 nerves exit the neural foramina without compression. A diffuse disc bulge and small central disc protrusion are present at the L5-L1 level. There is minimal compression of the thecal sac and S1 nerves as they exit the thecal sac. There is hypertrophy of the posterior articulating facets. The L5 nerves exit the neural foramina without compression. The conus medullaris is normal in appearance terminating at the level of the T12-L1 intervertebral disc. Increased signal intensity on T2-weighted images is present in the endplates of the L5 and S1 vertebral bodies. This represents degenerative change. Impression: 1. Diffuse disc bulge at the L4-5 level with minimal thecal sac compression. 2. Diffuse disc bulge and small central disc protrusion at the L5-L1 level with minimal compression of the thecal sac and S1 nerves as they exit the thecal sac. There is no significant change compared to the previous study. Electronically Signed by Valentino Rivera MD 05/09/2019 02:25 P
== END ==
LOC: M RAD 12:19
PROVIDERS: ATTEND Nurse Practitioner Family
DX: M54.5 Low back pain (principal)

== ENCOUNTER → 2019-05-27 | Outpatient (REF) ==
--- NOTE | 2019-05-27 12:13 | REP ---
Clinical: Pain and disability. Technique: AP, lateral, coned-down views of the lumbosacral spine. Findings: Alignment and lordosis maintained without evidence for acute fracture / compression injury or subluxation. Endplate sclerosis, early marginal osteophyte, and disc space narrowing along with hypertrophic facet changes at L5-S1 noted. Remainder examination is relatively normal for age. Impression: Focal moderate degenerative disc osteophyte complex at L5-S1 suspected. Electronically Signed by Ignacio Cruz MD 05/27/2019 12:04 P
== END ==
LOC: M SMT 11:27
PROVIDERS: ATTEND Internal Medicine
DX: Z00.00 Encounter for general adult medical examination without abnormal findings (principal)

== ENCOUNTER 2019-08-11 14:19 | Emergency (ER) | payer OTHER ==
[~2019-08-11] VITALS: Ht 157.5 cm; Wt 81.4 kg
[~2019-08-11 14:19] MED LIST changes: -BISO5TAB5 PO; +BISO5TAB9 PO
--- NOTE | 2019-08-11 14:57 | REP ---
Left lower extremity Duplex Doppler venous ultrasound: Real time compression and duplex Doppler interrogation of the left lower extremity deep venous system is performed. The left common femoral, superficial femoral and popliteal veins are fully compressible with transducer pressure and demonstrate normal spontaneous and phasic flow, without evidence of deep venous thrombosis. Impression: No evidence of deep venous thrombosis of the left lower extremity femoral popliteal venous system. Electronically Signed by Branden Beltrán MD 08/11/2019 02:48 P
[2019-08-11 15:34] LABS: BASO % 0.4 % (0.0-1.0); EOS # 0.1 10^3/uL (0.0-0.5); HEMATOCRIT 33.5 % (36.0-47.0); HEMOGLOBIN 10.6 g/dl (12.0-15.5); LYMPH # 2.1 10^3/uL (1.5-5.0); LYMPH % 46.2 % (24.0-44.0); MEAN CORPUSCULAR HEMOGLOBIN 27.5 pg (27.0-33.0); MEAN CORPUSCULAR HGB CONC 31.6 g/dl (32.0-36.5); MONO # 0.4 10^3/uL (0.0-0.8); MONO % 8.3 % (0.0-5.0); NEUTROPHILS # 1.9 10^3/uL (1.5-8.5); NEUTROPHILS % 43.1 % (36.0-66.0); PLATELET COUNT, AUTOMATED 255 10^3/uL (150-450); RED BLOOD COUNT 3.85 10^6/uL (4.00-5.40); WHITE BLOOD COUNT 4.5 10^3/uL (4.0-10.0)
[2019-08-11] MEDS ORDERED: NS 1,000 ML IV ONE (15:45)
[2019-08-11 16:01] LABS: ALBUMIN 3.4 GM/DL (3.2-5.2); ALT/SGPT 23 U/L (12-78); BILIRUBIN,TOTAL 0.9 MG/DL (0.2-1.0); BLOOD UREA NITROGEN 9 MG/DL (7-18); CALCIUM LEVEL 8.8 MG/DL (8.5-10.1); CARBON DIOXIDE LEVEL 30 MEQ/L (21-32); CHLORIDE LEVEL 108 MEQ/L (98-107); CREATININE FOR GFR 0.61 MG/DL (0.55-1.30); GLOMERULAR FILTRATION RATE > 60.0 (>60); GLUCOSE, FASTING 96 MG/DL (70-100); POTASSIUM SERUM 4.5 MEQ/L (3.5-5.1); SODIUM LEVEL 141 MEQ/L (136-145); TOTAL PROTEIN 6.6 GM/DL (6.4-8.2)
[2019-08-11 17:10] VITALS: O2SAT 100
--- NOTE | 2019-08-11 18:23 | REPVR ---
EXAM: CT Head Without Contrast EXAM DATE/TIME: 08/11/2019 5:30 PM CLINICAL HISTORY: 38 years old, female; Dizziness; Additional info: Dizzy TECHNIQUE: Imaging protocol: Computed tomography of the head without contrast. Radiation optimization: All CT scans at this facility use at least one of these dose optimization techniques: automated exposure control; mA and/or kV adjustment per patient size (includes targeted exams where dose is matched to clinical indication); or iterative reconstruction. COMPARISON: CT Head without contrast 06/20/2014 6:19 AM FINDINGS: Brain: The white-nj differentiation is preserved demonstrating no acute territorial type infarct. No acute intracranial hemorrhage is seen. 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 Midline shift: There is no midline shift. Ventricles: No ventriculomegaly. Bones/joints: The calvarium demonstrates no evidence for a depressed fracture. Hyperostosis frontalis interna. Sinuses: Visualized sinuses are unremarkable. No fluid levels. Mastoid air cells: No mastoid effusion. Soft tissues: Unremarkable. IMPRESSION: 1. No acute intracranial abnormality. 2. 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 Electronically signed by: Doyle Ridley On 08/11/2019 18:23:42 PM
[2019-08-11 18:30] VITALS: BP 159/84
--- NOTE | 2019-08-11 19:31 | ECGEPIP ---
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
== END 2019-08-11 18:50 | disposition home or self-care (01) ==
LOC: M ED 14:19
DX: R42 Dizziness and giddiness (principal); M79.605 Pain in left leg; I10 Essential (primary) hypertension; D64.9 Anemia, unspecified; I34.1 Nonrheumatic mitral (valve) prolapse; Z98.84 Bariatric surgery status; Z79.899 Other long term (current) drug therapy; Z88.8 Allergy status to other drugs, medicaments and biological substances; Z91.030 Bee allergy status; Z91.048 Other nonmedicinal substance allergy status; Z87.891 Personal history of nicotine dependence

== ENCOUNTER → 2019-08-28 | Outpatient (CLI) | payer OTHER ==
[2019-08-28 14:19] LABS: APPEARANCE, URINE CLEAR (CLEAR); BACTERIA, URINE AUTO NEGATIVE (NEGATIVE); BILIRUBIN, URINE AUTO NEGATIVE (NEGATIVE); BLOOD, URINE BLOOD NEGATIVE (NEGATIVE); COLOR, URINE YELLOW (YELLOW); GLUCOSE, URINE (UA) AUTO NEGATIVE (NEGATIVE); KETONE, URINE AUTO NEGATIVE (NEGATIVE); LEUKOCYTE ESTERASE, URINE AUTO NEGATIVE (NEGATIVE); MUCUS, URINE MODERATE (NEGATIVE); NITRITE, URINE AUTO NEGATIVE (NEGATIVE); PROTEIN, URINE AUTO NEGATIVE (NEGATIVE); RBC, URINE AUTO 2 /HPF (0-3); SPECIFIC GRAVITY URINE AUTO 1.027 (1.002-1.035); SQUAMOUS EPITHELIAL CELL UR AU 0 /HPF (0-6); UROBILINOGEN, URINE AUTO 0.2 mg/dL (0.0-2.0); WBC, URINE AUTO 2 /HPF (0-3)
[2019-08-28 14:20] LABS: BASO % 0.7 % (0.0-1.0); EOS # 0.1 10^3/uL (0.0-0.5); EOS % 1.8 % (0.0-3.0); HEMATOCRIT 35.3 % (36.0-47.0); LYMPH # 2.8 10^3/uL (1.5-5.0); LYMPH % 46.1 % (24.0-44.0); MEAN CORPUSCULAR HEMOGLOBIN 26.9 pg (27.0-33.0); MEAN CORPUSCULAR HGB CONC 31.2 g/dl (32.0-36.5); MEAN CORPUSCULAR VOLUME 86.3 fl (80.0-96.0); MONO # 0.4 10^3/uL (0.0-0.8); MONO % 6.9 % (0.0-5.0); NEUTROPHILS # 2.6 10^3/uL (1.5-8.5); NEUTROPHILS % 44.3 % (36.0-66.0); PLATELET COUNT, AUTOMATED 402 10^3/uL (150-450); RED BLOOD COUNT 4.09 10^6/uL (4.00-5.40)
[2019-08-28 15:05] LABS: ALBUMIN 3.8 GM/DL (3.2-5.2); ALT/SGPT 17 U/L (12-78); BILIRUBIN,TOTAL 1.9 MG/DL (0.2-1.0); BLOOD UREA NITROGEN 14 MG/DL (7-18); CALCIUM LEVEL 9.1 MG/DL (8.5-10.1); CARBON DIOXIDE LEVEL 29 MEQ/L (21-32); CHLORIDE LEVEL 103 MEQ/L (98-107); CHOLESTEROL LEVEL 138 MG/DL (<200); CHOLESTEROL RISK RATIO 1.516 (<5); CREATININE FOR GFR 0.69 MG/DL (0.55-1.30); FREE T4 1.11 NG/DL (0.76-1.46); GLOMERULAR FILTRATION RATE > 60.0 (>60); GLUCOSE, FASTING 71 MG/DL (70-100); HDL CHOLESTEROL 91 MG/DL (>40); LDL CHOLESTEROL 38 MG/DL (<100); NON-HDL-C 47 MG/DL; POTASSIUM SERUM 4.3 MEQ/L (3.5-5.1); SODIUM LEVEL 139 MEQ/L (136-145); TOTAL PROTEIN 7.4 GM/DL (6.4-8.2); TRIGLYCERIDES LEVEL 44 MG/DL (<150)
[2019-08-28 15:14] LABS: HEMOGLOBIN A1c 4.5 %
[2019-08-31 14:07] LABS: F026-IGE PORK <0.10 kU/L (Class 0)
[2019-09-03 00:09] LABS: F002-IgE Milk 0.11 kU/L (Class 0/I); F004-IgE Wheat < 0.10 kU/L (Class 0); F013-IgE Peanut < 0.10 kU/L (Class 0); F014-IgE Soybean < 0.10 kU/L (Class 0); F026-IgE Pork < 0.10 kU/L (Class 0); F027-IgE Beef < 0.10 kU/L (Class 0); F083-IGE CHICKEN <0.10 kU/L (Class 0); F245-IgE Egg, Whole < 0.10 kU/L (Class 0); FX02-IgE Food Mix (Sea Foods) Negative (.); TISSUE TRANSGLUTAMINASE IgA <2 U/mL (0-3)
== END ==
LOC: M LAB 13:01
PROVIDERS: ATTEND Family Medicine
DX: R10.9 Unspecified abdominal pain (principal); Z13.228 Encounter for screening for other metabolic disorders

== ENCOUNTER → 2019-12-28 | Outpatient (REF) | payer OTHER, MEDICAID ==
[~2019-12-28] MED LIST changes: -ARTH650T11 PO; +ARTH650T4 PO; +BISO5TAB14 PO; -BISO5TAB9 PO; -MECL-68 PO; +MECL1TAB31 PO; -TRAZ-163 PO; +TRAZ-257 PO; +ZONI50CA11 PO; -ZONI50CA3 PO
== END ==
LOC: M LAB REF 14:11
PROVIDERS: ATTEND Physician Assistant
DX: R19.7 Diarrhea, unspecified (principal); R30.0 Dysuria

== ENCOUNTER 2021-02-12 22:01 | Emergency (ER) | payer MEDICAID, OTHER ==
[~2021-02-12] VITALS: Ht 157.5 cm; Wt 99.6 kg
[~2021-02-12 22:01] MED LIST changes: +ARTH650T11 PO; -ARTH650T4 PO; +CALC-212 PO; -CALC600T7 PO; -CYTO100T PO; +CYTO1TAB2 PO; +GABA-282 PO; -GABA-843 PO; -LISI-538 PO; +LISI10TA22 PO; -LISI10TA4 PO; +LISI20TA33 PO; +MIRT-62 PO; -REME15TA PO
[2021-02-12] MEDS ORDERED: BACL10TA2 PO (22:09)
[2021-02-12] MEDS ORDERED: AMIT25TA17 PO (22:09)
[2021-02-12] MEDS ORDERED: HYDR-3713 PO (22:09)
[2021-02-12] MEDS ORDERED: CYCLOBENZAPRINE 10MG TABLET PO ONE (22:55)
[2021-02-12] MEDS ORDERED: NS 1,000 ML IV ONE (22:55)
[2021-02-12] MEDS ORDERED: MORPHINE 2 MG/ML 1ML VIAL (J2270) IV ONE (23:10)
[2021-02-13 00:05] LABS: INR 0.98; PROTHROMBIN TIME 13.2 SECONDS (12.5-14.3)
[2021-02-13 00:08] LABS: D-DIMER QUANT 567.41 ng/ml (<500)
[2021-02-13 00:11] LABS: PARTIAL THROMBOPLASTIN TIME 27.9 SECONDS (24.2-38.5)
[2021-02-13 00:12] LABS: BASO % 0.4 % (0.0-1.0); EOS # 0.1 10^3/uL (0.0-0.5); EOS % 2.1 % (0.0-3.0); HEMOGLOBIN 10.8 g/dl (12.0-15.5); LYMPH # 2.7 10^3/uL (1.5-5.0); LYMPH % 40.4 % (24.0-44.0); MEAN CORPUSCULAR HEMOGLOBIN 27.9 pg (27.0-33.0); MEAN CORPUSCULAR HGB CONC 30.9 g/dl (32.0-36.5); MEAN CORPUSCULAR VOLUME 90.4 fl (80.0-96.0); MONO # 0.7 10^3/uL (0.0-0.8); MONO % 10.8 % (2.0-8.0); NEUTROPHILS # 3.1 10^3/uL (1.5-8.5); NEUTROPHILS % 45.9 % (36.0-66.0); PLATELET COUNT, AUTOMATED 349 10^3/uL (150-450); RED BLOOD COUNT 3.87 10^6/uL (4.00-5.40); WHITE BLOOD COUNT 6.7 10^3/uL (4.0-10.0)
[2021-02-13 00:23] LABS: HCG, SERUM QUALITATIVE NEGATIVE (NEGATIVE)
[2021-02-13 00:27] LABS: ALBUMIN 3.4 GM/DL (3.2-5.2); ALT/SGPT 25 U/L (12-78); BILIRUBIN,DIRECT 0.3 MG/DL (0.0-0.2); BILIRUBIN,TOTAL 2.2 MG/DL (0.2-1.0); BLOOD UREA NITROGEN 12 MG/DL (7-18); CALCIUM LEVEL 8.4 MG/DL (8.5-10.1); CARBON DIOXIDE LEVEL 26 MEQ/L (21-32); CHLORIDE LEVEL 108 MEQ/L (98-107); CK-MB VALUE MASS 1.6 NG/ML (<3.6); CPK CREATINE PHOSPHOKINASE 331 U/L (26-192); CREATININE FOR GFR 0.86 MG/DL (0.55-1.30); GLOMERULAR FILTRATION RATE > 60.0 (>60); GLUCOSE, FASTING 84 MG/DL (70-100); MB/CK RELATIVE INDEX 0.48 (< OR =4); POTASSIUM SERUM 3.5 MEQ/L (3.5-5.1); SODIUM LEVEL 139 MEQ/L (136-145); TOTAL PROTEIN 6.8 GM/DL (6.4-8.2); TROPONIN I 0.05 NG/ML (< 0.10)
--- NOTE | 2021-02-13 00:51 | REPVR ---
PROCEDURE INFORMATION: Exam: US Duplex Left Upper Extremity Veins, Limited Exam date and time: 02/12/2021 12:38 AM Age: 40 years old Clinical indication: Pain; Arm, upper; Left; Additional info: Prior ue blood clot in arm TECHNIQUE: Imaging protocol: Real-time Duplex ultrasound of the Left Upper Extremity with 2-D nj scale, color Doppler flow and spectral waveform analysis with image documentation. Limited exam focused on the left upper extremity veins. COMPARISON: US DUPLEX EXT UPPER VEINS UNILATE 02/10/2015 11:40 AM FINDINGS: Left deep veins: Unremarkable. Axillary and brachial veins are patent throughout without thrombus. Normal Doppler waveforms. Normal compressibility and/or augmentation response. Visualized internal jugular and subclavian veins are patent. Left superficial veins: Unremarkable. Visualized cephalic and basilic veins are patent without thrombus. Soft tissues: Unremarkable. IMPRESSION: No evidence of deep vein thrombosis. Electronically signed by: Jay Jay Davidson On 02/13/2021 00:50:49 AM
--- NOTE | 2021-02-13 01:05 | REPVR ---
PROCEDURE INFORMATION: Exam: XR Chest Exam date and time: 02/13/2021 1:01 AM Age: 40 years old Clinical indication: Chest pain; Type not specified TECHNIQUE: Imaging protocol: XR of the chest Views: 1 view. COMPARISON: CR PORTABLE CHEST X-RAY 10/07/2018 6:14 PM FINDINGS: Lungs: Unremarkable. No consolidation. Pleural spaces: Unremarkable. No pleural effusion. No pneumothorax. Heart/Mediastinum: Mild cardiomegaly. Bones/joints: Unremarkable. IMPRESSION: 1. No acute infiltrate. 2. Mild cardiomegaly. Increased from prior. Possibly projectional. Pericardial effusion cannot be excluded. Electronically signed by: Jay Jay Davidson On 02/13/2021 01:04:59 AM
[2021-02-13] MEDS ORDERED: GABAPENTIN 400MG CAP PO ONE (01:35)
[2021-02-13] MEDS ORDERED: KETOROLAC 30 MG/ML 1ML VIAL IV ONE (01:40)
[2021-02-13] MEDS ORDERED: ISOVUE-370 76% 100ML VIAL As Ordered ONE (01:43)
--- NOTE | 2021-02-13 02:24 | REPVR ---
PROCEDURE INFORMATION: Exam: CT Angiography Chest With Contrast Exam date and time: 02/13/2021 1:50 AM Age: 40 years old Clinical indication: Other: Elevated d dimer, chest discomfort; Additional info: Elevated d-d jaclyn /chest discomfort TECHNIQUE: Imaging protocol: Computed tomographic angiography of the chest with contrast. 3D rendering (Not supervised by radiologist): MIP and/or 3D reconstructed images were created by the technologist. Radiation optimization: All CT scans at this facility use at least one of these dose optimization techniques: automated exposure control; mA and/or kV adjustment per patient size (includes targeted exams where dose is matched to clinical indication); or iterative reconstruction. Contrast material: ISOVUE 370; Contrast volume: 75 ml; Contrast route: INTRAVENOUS (IV); COMPARISON: CT ANGIO CHEST 08/31/2014 5:18 PM FINDINGS: Limitations: Examination is limited by motion artifact. Pulmonary arteries: No definite pulmonary emboli. Evaluation of the segmental pulmonary arteries are limited because of motion. Aorta: Unremarkable. No aortic aneurysm. No aortic dissection. Bronchial tree: Visualized bronchial tree is unremarkable. Lungs: Unremarkable. No consolidation. No masses. Pleural spaces: Unremarkable. No pneumothorax. No pleural effusion. Heart: Heart appears to be mildly enlarged on this nongated study. No pericardial effusion. Lymph nodes: Unremarkable. No enlarged lymph nodes. Gallbladder and bile ducts: Status post cholecystectomy. Stomach and bowel: Status post gastric bypassr surgery. Bones/joints: Unremarkable. No acute fracture. Soft tissues: Unremarkable. IMPRESSION: 1. No definite pulmonary emboli. Evaluation of the segmental pulmonary arteries are limited because of motion. 2. Heart appears to be mildly enlarged on this nongated study. Correlate with cardiovascular status. Electronically signed by: Jay Jay Davidson On 02/13/2021 02:24:12 AM
--- NOTE | 2021-02-13 02:25 | REPVR ---
PROCEDURE INFORMATION: Exam: XR Left Humerus Exam date and time: 02/13/2021 2:15 AM Age: 40 years old Clinical indication: Pain; Upper arm; Left; Additional info: Bicep pain TECHNIQUE: Imaging protocol: XR Left humerus. Views: 2 or more views. COMPARISON: No relevant prior studies available. FINDINGS: Bones/joints: Normal. No acute fracture. No dislocation. Soft tissues: Normal. IMPRESSION: No acute fracture. Electronically signed by: Jay Jay Davidson On 02/13/2021 02:25:23 AM
[2021-02-13] MEDS ORDERED: CYCL-707 PO (02:59)
[2021-02-13 03:13] VITALS: BP 139/72
--- NOTE | 2021-02-13 05:39 | ECGEPIP ---
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
== END 2021-02-13 03:26 | disposition home or self-care (01) ==
LOC: M ED 22:01
DX: S46.112A Strain of muscle, fascia and tendon of long head of biceps, left arm, initial encounter (principal); X58.XXXA Exposure to other specified factors, initial encounter; Y92.89 Other specified places as the place of occurrence of the external cause; Z98.84 Bariatric surgery status; Z88.8 Allergy status to other drugs, medicaments and biological substances; Z79.899 Other long term (current) drug therapy; Z91.030 Bee allergy status; Z91.048 Other nonmedicinal substance allergy status
CPT/HCPCS: 71045; 71275; 73060; 80048; 80076; 82550; 82553; 84703; 85025; 85379; 85610; 85730; 93005; 93041; 93971; 94760; 96361; 96374; 96375; 99285; J1885; J2270; Q9967

== ENCOUNTER → 2021-03-07 | Outpatient (REF) | payer OTHER ==
[~2021-03-07] MED LIST changes: +AMIT25TA17 PO; +BACL10TA2 PO; +CYCL-707 PO; +HYDR-3713 PO
[2021-03-07 13:03] LABS: APPEARANCE, URINE CLEAR (CLEAR); BACTERIA, URINE AUTO NEGATIVE (NEGATIVE); BILIRUBIN, URINE AUTO NEGATIVE (NEGATIVE); BLOOD, URINE BLOOD NEGATIVE (NEGATIVE); COLOR, URINE YELLOW (YELLOW); GLUCOSE, URINE (UA) AUTO NEGATIVE (NEGATIVE); KETONE, URINE AUTO NEGATIVE (NEGATIVE); LEUKOCYTE ESTERASE, URINE AUTO NEGATIVE (NEGATIVE); MUCUS, URINE SMALL (NEGATIVE); NITRITE, URINE AUTO NEGATIVE (NEGATIVE); PROTEIN, URINE AUTO NEGATIVE (NEGATIVE); RBC, URINE AUTO 1 /HPF (0-3); SPECIFIC GRAVITY URINE AUTO 1.019 (1.002-1.035); SQUAMOUS EPITHELIAL CELL UR AU 2 /HPF (0-6); WBC, URINE AUTO 3 /HPF (0-3)
== END ==
LOC: M LAB REF 12:07
PROVIDERS: ATTEND Physician Assistant Medical
DX: N39.0 Urinary tract infection, site not specified (principal)

== ENCOUNTER → 2021-08-30 | Outpatient (CLI) | payer OTHER ==
[~2021-08-30] MED LIST changes: +GABA-283 PO; -GABA-845 PO
== END ==
LOC: M LABSMTC 11:07
PROVIDERS: ATTEND Pediatrics
DX: Z11.52 Encounter for screening for COVID-19 (principal)

== ENCOUNTER → 2022-02-27 | Outpatient (CLI) | payer OTHER ==
[~2022-02-27] MED LIST changes: +AMLO1TAB25; +CHLO125TA; -DICY20TA11 PO; +DICY20TA20 PO; -MOME50SP; +NASO50SP3
[2022-02-27 11:31] LABS: HEMOGLOBIN A1c 4.9 %
[2022-02-27 11:44] LABS: BLOOD UREA NITROGEN 12 MG/DL (7-18); CALCIUM LEVEL 8.6 MG/DL (8.5-10.1); CARBON DIOXIDE LEVEL 26 MEQ/L (21-32); CHLORIDE LEVEL 109 MEQ/L (98-107); CHOLESTEROL LEVEL 144 MG/DL (<200); CHOLESTEROL RISK RATIO 1.531 (<5); CREATININE FOR GFR 0.64 MG/DL (0.55-1.30); GLOMERULAR FILTRATION RATE > 60.0 (>58); GLUCOSE, FASTING 84 MG/DL (70-100); HDL CHOLESTEROL 94 MG/DL (>40); LDL CHOLESTEROL 41 MG/DL (<100); NON-HDL-C 50 MG/DL; NT-PRO BNP 672 PG/ML (<125); POTASSIUM SERUM 4.1 MEQ/L (3.5-5.1); SODIUM LEVEL 139 MEQ/L (136-145); TRIGLYCERIDES LEVEL 46 MG/DL (<150)
[2022-02-27 11:50] LABS: MALB URINE SIEMENS 18.3 MG/L; MAU/CREAT RATIO 7.5 MCG/MG (0.0-30.0)
== END ==
LOC: M LAB 10:18
PROVIDERS: ATTEND Internal Medicine Cardiovascular Disease
DX: I10 Essential (primary) hypertension (principal); E66.01 Morbid (severe) obesity due to excess calories; I49.3 Ventricular premature depolarization; R06.00 Dyspnea, unspecified

== ENCOUNTER 2022-05-14 13:46 | Inpatient (IN) | payer OTHER ==
[~2022-05-14] VITALS: Ht 157.5 cm; Wt 103.2 kg
[~2022-05-14 13:46] MED LIST changes: -AMLO1TAB25; +AMLO1TAB25 PO; -CHLO125TA; +CHLO125TA PO
[2022-05-14 14:37] LABS: BASO % 0.4 % (0.0-1.0); EOS # 0.2 10^3/uL (0.0-0.5); EOS % 2.8 % (0.0-3.0); HEMATOCRIT 39.2 % (36.0-47.0); HEMOGLOBIN 12.4 g/dl (12.0-15.5); LYMPH # 2.1 10^3/uL (1.5-5.0); LYMPH % 30.8 % (24.0-44.0); MEAN CORPUSCULAR HEMOGLOBIN 29.1 pg (27.0-33.0); MEAN CORPUSCULAR HGB CONC 31.6 g/dl (32.0-36.5); MONO # 0.5 10^3/uL (0.0-0.8); MONO % 7.3 % (2.0-8.0); NEUTROPHILS % 58.6 % (36.0-66.0); PLATELET COUNT, AUTOMATED 334 10^3/uL (150-450); RED BLOOD COUNT 4.26 10^6/uL (4.00-5.40); WHITE BLOOD COUNT 6.8 10^3/uL (4.0-10.0)
[2022-05-14 15:04] LABS: CK-MB VALUE MASS 1.1 NG/ML (<3.6); MB/CK RELATIVE INDEX 1.28 (< OR =4)
[2022-05-14 15:09] LABS: ALBUMIN 3.4 GM/DL (3.2-5.2); ALT/SGPT 24 U/L (12-78); BILIRUBIN,DIRECT 0.5 MG/DL (0.0-0.2); BILIRUBIN,TOTAL 1.6 MG/DL (0.2-1.0); BLOOD UREA NITROGEN 19 MG/DL (7-18); CALCIUM LEVEL 9.5 MG/DL (8.5-10.1); CARBON DIOXIDE LEVEL 27 MEQ/L (21-32); CHLORIDE LEVEL 109 MEQ/L (98-107); CREATININE FOR GFR 0.94 MG/DL (0.55-1.30); GLOMERULAR FILTRATION RATE > 60.0 (>58); GLUCOSE, FASTING 86 MG/DL (70-100); NT-PRO BNP 359 PG/ML (<125); POTASSIUM SERUM 4.1 MEQ/L (3.5-5.1); SODIUM LEVEL 142 MEQ/L (136-145); TOTAL PROTEIN 6.8 GM/DL (6.4-8.2)
[2022-05-14] MEDS ORDERED: ISOVUE-370 76% 100ML VIAL As Ordered ONE (15:40)
[2022-05-14] MEDS ORDERED: LABETALOL 100MG/20ML VIAL IV STA ×2 (15:58→17:23)
[2022-05-14] MEDS ORDERED: ONDANSETRON 4MG/2ML VIAL IV ONE (16:00)
[2022-05-14 16:06] LABS: CK-MB VALUE MASS 1.1 NG/ML (<3.6); MB/CK RELATIVE INDEX 1.51 (< OR =4)
[2022-05-14] MEDS ORDERED: PANT40TA29 PO (17:06)
[2022-05-14] MEDS ORDERED: VITA200032 PO (17:06)
[2022-05-14] MEDS ORDERED: LEXA1TAB PO (17:06)
[2022-05-14] MEDS ORDERED: CARV3.12 PO (17:06)
[2022-05-14] MEDS ORDERED: AMIO200T49 PO (17:06)
[2022-05-14] MEDS ORDERED: VALS1TAB68 PO (17:06)
[2022-05-14] MEDS ORDERED: ONDA4TAB6 PO (17:06)
[2022-05-14] MEDS ORDERED: LORA-674 PO (17:06)
[2022-05-14 17:18] LABS: RSV AMPLIFICATION NEGATIVE (NEGATIVE)
[2022-05-14] MEDS ORDERED: MAALOX 30 ML SUSP *UDC PO PRN (17:30)
[2022-05-14] MEDS ORDERED: ASPIRIN 325 MG TAB PO ONE (18:00)
[2022-05-14] MEDS: ACETAMINOPHEN TAB 650MG DOSE (2X325MG) PO PRN ×2 (18:05→23:49)
[2022-05-14] MEDS: **hydrALAZINE HCL** 25 MG TAB PO SCH ×2 (18:06→23:38)
[2022-05-14] MEDS: SPIRONOLACTONE 12.5MG PER 1/2 TABLET PO SCH (18:06)
[2022-05-14 18:22] LABS: FREE T4 0.92 NG/DL (0.76-1.46)
[2022-05-14] MEDS ORDERED: HOME MED LIST COMPLETE! XX SCH (18:50)
[2022-05-14 18:58] LABS: CK-MB VALUE MASS < 1.0 NG/ML (<3.6); CPK CREATINE PHOSPHOKINASE 79 U/L (26-192); MB/CK RELATIVE INDEX 1.27 (< OR =4)
[2022-05-14 20:20] VITALS: BP 154/78
[2022-05-14] MEDS ORDERED: VALSARTAN 80 MG TAB (DIOVAN) PO SCH (21:00)
[2022-05-14] MEDS ORDERED: ALBUTEROL 90 MCG/ACT 8GM HFA INHALER INH PRN (23:35)
[2022-05-14] MEDS ORDERED: ONDANSETRON 4MG ORAL DISINTEGRATING TAB PO PRN (23:35)
[2022-05-15] VITALS (10 sets, daily range): BP systolic 107–184; BP diastolic 55–96
[2022-05-15] MEDS ORDERED: CARVedilol 3.125 MG TAB PO ONE
[2022-05-15 00:41] LABS: CK-MB VALUE MASS 1.2 NG/ML (<3.6); MB/CK RELATIVE INDEX 1.71 (< OR =4)
[2022-05-15] MEDS: **hydrALAZINE HCL** 25 MG TAB PO SCH ×3 (05:41→18:00)
[2022-05-15 06:14] LABS: BASO % 0.7 % (0.0-1.0); EOS # 0.2 10^3/uL (0.0-0.5); EOS % 3.1 % (0.0-3.0); HEMATOCRIT 37.5 % (36.0-47.0); HEMOGLOBIN 11.8 g/dl (12.0-15.5); LYMPH # 2.8 10^3/uL (1.5-5.0); LYMPH % 46.2 % (24.0-44.0); MEAN CORPUSCULAR HEMOGLOBIN 28.2 pg (27.0-33.0); MEAN CORPUSCULAR HGB CONC 31.5 g/dl (32.0-36.5); MEAN CORPUSCULAR VOLUME 89.5 fl (80.0-96.0); MONO # 0.6 10^3/uL (0.0-0.8); MONO % 9.9 % (2.0-8.0); NEUTROPHILS # 2.4 10^3/uL (1.5-8.5); NEUTROPHILS % 39.8 % (36.0-66.0); PLATELET COUNT, AUTOMATED 309 10^3/uL (150-450); RED BLOOD COUNT 4.19 10^6/uL (4.00-5.40); WHITE BLOOD COUNT 6.1 10^3/uL (4.0-10.0)
[2022-05-15 06:43] LABS: CK-MB VALUE MASS < 1.0 NG/ML (<3.6); CPK CREATINE PHOSPHOKINASE 58 U/L (26-192); MB/CK RELATIVE INDEX 1.72 (< OR =4)
[2022-05-15 06:46] LABS: ALT/SGPT 21 U/L (12-78); BILIRUBIN,TOTAL 1.3 MG/DL (0.2-1.0); BLOOD UREA NITROGEN 13 MG/DL (7-18); CARBON DIOXIDE LEVEL 25 MEQ/L (21-32); CHLORIDE LEVEL 109 MEQ/L (98-107); CREATININE FOR GFR 0.73 MG/DL (0.55-1.30); GLOMERULAR FILTRATION RATE > 60.0 (>58); GLUCOSE, FASTING 84 MG/DL (70-100); MAGNESIUM LEVEL 1.8 MG/DL (1.8-2.4); POTASSIUM SERUM 3.5 MEQ/L (3.5-5.1); SODIUM LEVEL 141 MEQ/L (136-145)
[2022-05-15] MEDS: ACETAMINOPHEN TAB 650MG DOSE (2X325MG) PO PRN ×2 (06:46→12:38)
[2022-05-15] MEDS ORDERED: INFLUENZA QUADRIVALENT PF VACCINE 0.5ML SYRINGE IM.IMMUN ONE (09:00)
[2022-05-15] MEDS ORDERED: AMIODARONE 200 MG TAB (PACERONE) PO SCH (09:00)
[2022-05-15] MEDS ORDERED: CARVedilol 3.125 MG TAB PO SCH (09:00)
[2022-05-15] MEDS ORDERED: FLUBLOK(EGG FREE)(QUAD)INFLUENZA VACC 0.5ML SYRINGE 18YRS & OLDER IM.IMMUN ONE (09:00)
[2022-05-15] MEDS ORDERED: LORATADINE 10 MG TAB PO SCH (09:00)
[2022-05-15] MEDS: CHLORTHALIDONE 25 MG TAB PO SCH ×2 (09:00→12:49)
[2022-05-15] MEDS ORDERED: ESCITALOPRAM OXALATE 10 MG TAB (LEXAPRO) PO SCH (09:00)
[2022-05-15] MEDS ORDERED: ENOXAPARIN 40MG/0.4ML SYRINGE (J1650 PER 10MG) SC SCH (09:00)
[2022-05-15] MEDS ORDERED: PANTOPRAZOLE 40MG TAB (PROTONIX) PO SCH (09:00)
[2022-05-15] MEDS: SPIRONOLACTONE 12.5MG PER 1/2 TABLET PO SCH (09:16)
[2022-05-15] MEDS ORDERED: ISOVUE-370 76% 100ML VIAL As Ordered ONE (16:42)
[2022-05-15] MEDS ORDERED: ACET1TAB55 PO (19:40)
[2022-05-15] MEDS ORDERED: ALDA25TA2 PO (19:40)
[2022-05-15] MEDS ORDERED: hydrALAZINE 20MG/ML 1ML VIAL (J0360 PER 20MG) IV PRN (19:45)
== END 2022-05-15 20:29 | disposition short-term general hospital (02) | DRG 58 ==
LOC: M ED 13:46 → M ED INP 17:30 → ENRESERV 17:59 → M PCU 20:21
PROVIDERS: ADMIT Family Medicine; ATTEND Internal Medicine
DX: I67.1 Cerebral aneurysm, nonruptured (principal); I11.0 Hypertensive heart disease with heart failure; I50.9 Heart failure, unspecified; I16.0 Hypertensive urgency; K21.9 Gastro-esophageal reflux disease without esophagitis; E66.9 Obesity, unspecified; D64.9 Anemia, unspecified; M51.27 Other intervertebral disc displacement, lumbosacral region; R51.9 Headache, unspecified; R00.1 Bradycardia, unspecified; E80.6 Other disorders of bilirubin metabolism; F41.9 Anxiety disorder, unspecified; F32.A Depression, unspecified; I49.3 Ventricular premature depolarization; R20.0 Anesthesia of skin; Z90.710 Acquired absence of both cervix and uterus; Z98.84 Bariatric surgery status; Z90.49 Acquired absence of other specified parts of digestive tract; Z79.899 Other long term (current) drug therapy; Z87.891 Personal history of nicotine dependence; Z88.6 Allergy status to analgesic agent; Z88.8 Allergy status to other drugs, medicaments and biological substances; Z91.048 Other nonmedicinal substance allergy status; Z91.030 Bee allergy status

== ENCOUNTER 2022-08-03 14:14 | Emergency (ER) | payer OTHER ==
[~2022-08-03 14:14] MED LIST changes: +ACET1TAB55 PO; +ALDA25TA2 PO; +AMIO200T49 PO; +CARV3.12 PO; +LEXA1TAB PO; +LORA-674 PO; +ONDA4TAB6 PO; +PANT40TA29 PO; +VALS1TAB68 PO; +VITA200032 PO
[2022-08-03] MEDS ORDERED: ISOVUE-370 76% 100ML VIAL As Ordered ONE (14:29)
[2022-08-03 14:58] LABS: BASO % 0.5 % (0.0-1.0); EOS # 0.1 10^3/uL (0.0-0.5); EOS % 2.2 % (0.0-3.0); HEMATOCRIT 36.7 % (36.0-47.0); HEMOGLOBIN 11.9 g/dl (12.0-15.5); LYMPH # 2.1 10^3/uL (1.5-5.0); LYMPH % 35.6 % (24.0-44.0); MEAN CORPUSCULAR HGB CONC 32.4 g/dl (32.0-36.5); MEAN CORPUSCULAR VOLUME 95.6 fl (80.0-96.0); MONO # 0.6 10^3/uL (0.0-0.8); MONO % 9.5 % (2.0-8.0); NEUTROPHILS # 3.1 10^3/uL (1.5-8.5); NEUTROPHILS % 51.9 % (36.0-66.0); PLATELET COUNT, AUTOMATED 342 10^3/uL (150-450); RED BLOOD COUNT 3.84 10^6/uL (4.00-5.40); WHITE BLOOD COUNT 5.9 10^3/uL (4.0-10.0)
[2022-08-03 15:03] LABS: INR 0.97; PROTHROMBIN TIME 13.2 SECONDS (12.7-14.5)
[2022-08-03 15:04] LABS: PARTIAL THROMBOPLASTIN TIME 26.4 SECONDS (25.9-37.0)
[2022-08-03] MEDS ORDERED: FIORICET TAB PO ONE (15:10)
[2022-08-03] MEDS ORDERED: ACETAMINOPH W/CODEINE #3 TAB UD PO ONE (15:10)
[2022-08-03 15:40] LABS: CK-MB VALUE MASS < 1.0 NG/ML (<3.6); CPK CREATINE PHOSPHOKINASE 72 U/L (26-192); MB/CK RELATIVE INDEX 1.39 (< OR =4)
[2022-08-03 15:48] VITALS: BP 132/75
[2022-08-03 17:05] LABS: RSV AMPLIFICATION NEGATIVE (NEGATIVE)
[2022-08-03 17:10] LABS: CK-MB VALUE MASS < 1.0 NG/ML (<3.6); CPK CREATINE PHOSPHOKINASE 90 U/L (26-192); MB/CK RELATIVE INDEX 1.11 (< OR =4)
[2022-08-03] MEDS ORDERED: METOCLOPRAMIDE INJ 10MG/2ML VIAL (J2765 PER 1) IV ONE (17:10)
[2022-08-03] MEDS ORDERED: MAG SULF 1GM/100ML (MAG RUN) 1 GM in IV 1 EA IV ONE (17:10)
[2022-08-03] MEDS ORDERED: NS 1,000 ML IV ONE (17:10)
[2022-08-03] MEDS ORDERED: KETAMINE HCL 20 MG in NS 50 ML IV ONE (21:00)
[2022-08-03 21:06] LABS: CK-MB VALUE MASS < 1.0 NG/ML (<3.6); CPK CREATINE PHOSPHOKINASE 64 U/L (26-192); MB/CK RELATIVE INDEX 1.56 (< OR =4)
[2022-08-03] MEDS ORDERED: BUTACAP4 PO (21:28)
[2022-08-03 22:00] VITALS: BP 104/55
[2022-08-04] MEDS ORDERED: ACET1SOL10 PO (08:43)
== END 2022-08-03 22:12 | disposition home or self-care (01) ==
LOC: EDBD 14:14 → M ED 14:14
DX: R51.9 Headache, unspecified (principal); I10 Essential (primary) hypertension; I69.352 Hemiplegia and hemiparesis following cerebral infarction affecting left dominant side; Z88.8 Allergy status to other drugs, medicaments and biological substances; Z91.030 Bee allergy status; Z91.048 Other nonmedicinal substance allergy status; Z79.899 Other long term (current) drug therapy
CPT/HCPCS: 70450; 70496; 80047; 82550; 82553; 85025; 85610; 85730; 86850; 86900; 86901; 87631; 93005; 93041; 93880; 94760; 96365; 96366; 96375; 99285; J2765; J3475; Q9967

== ENCOUNTER 2022-12-20 09:56 | Outpatient (RCR) | payer OTHER ==
[~2022-12-20 09:56] MED LIST changes: +ACET1SOL10 PO; +BUTACAP4 PO; -PAXI20TA29 PO; +PAXI20TA30 PO
== END 2023-01-01 ==
LOC: M PT 09:56
PROVIDERS: ATTEND Neurological Surgery
DX: R53.1 Weakness (principal)

== ENCOUNTER 2023-01-28 08:37 | Outpatient (RCR) | payer OTHER | END 2023-01-29 | LOC: M PT 08:37 | PROVIDERS: ATTEND Neurological Surgery | DX: I69.354 Hemiplegia and hemiparesis following cerebral infarction affecting left non-dominant side (principal); R53.1 Weakness ==

== ENCOUNTER → 2023-03-13 | Outpatient (REF) | payer OTHER | LOC: M LAB REF 16:32 | PROVIDERS: ATTEND Nurse Practitioner Family | DX: J02.9 Acute pharyngitis, unspecified (principal) ==

== ENCOUNTER → 2023-04-02 | Outpatient (CLI) | payer OTHER | LOC: M EKG 10:54 | PROVIDERS: ATTEND Nurse Practitioner Family | DX: Z01.818 Encounter for other preprocedural examination (principal); R00.1 Bradycardia, unspecified ==

== ENCOUNTER 2023-05-10 17:32 | Emergency (ER) | payer OTHER ==
[~2023-05-10] VITALS: Ht 157.5 cm; Wt 122.0 kg
[2023-05-10 18:24] LABS: BASO % 0.1 % (0.0-1.0); EOS # 0.1 10^3/uL (0.0-0.5); EOS % 1.1 % (0.0-3.0); HEMATOCRIT 39.2 % (36.0-47.0); HEMOGLOBIN 12.9 g/dl (12.0-15.5); LYMPH # 2.2 10^3/uL (1.5-5.0); LYMPH % 29.7 % (24.0-44.0); MEAN CORPUSCULAR HEMOGLOBIN 32.6 pg (27.0-33.0); MEAN CORPUSCULAR HGB CONC 32.9 g/dl (32.0-36.5); MONO # 0.6 10^3/uL (0.0-0.8); MONO % 8.4 % (2.0-8.0); NEUTROPHILS # 4.5 10^3/uL (1.5-8.5); NEUTROPHILS % 60.3 % (36.0-66.0); PLATELET COUNT, AUTOMATED 299 10^3/uL (150-450); RED BLOOD COUNT 3.96 10^6/uL (4.00-5.40); WHITE BLOOD COUNT 7.5 10^3/uL (4.0-10.0)
[2023-05-10 18:37] LABS: INR 0.85; PROTHROMBIN TIME 11.8 SECONDS (12.5-14.5)
[2023-05-10 18:38] LABS: PARTIAL THROMBOPLASTIN TIME 23.9 SECONDS (24.8-34.2)
[2023-05-10 18:49] LABS: CK-MB VALUE MASS < 1.0 NG/ML (<3.6)
[2023-05-10 18:51] LABS: BLOOD UREA NITROGEN 21 MG/DL (9-23); CARBON DIOXIDE LEVEL 27 MMOL/L (20-31); CHLORIDE LEVEL 107 MMOL/L (98-107); CREATININE FOR GFR 0.73 MG/DL (0.55-1.30); GLOMERULAR FILTRATION RATE > 60.0 (>58); GLUCOSE, FASTING 82 MG/DL (60-100); MAGNESIUM LEVEL 1.6 MG/DL (1.8-2.4); POTASSIUM SERUM 3.8 MMOL/L (3.5-5.1); SODIUM LEVEL 139 MMOL/L (136-145)
[2023-05-10 18:53] LABS: THYROID STIMULATING HORMONE 1.795 uIU/ML (0.55-4.78)
[2023-05-10 18:54] LABS: FREE T4 0.97 NG/DL (0.89-1.76); HCG, SERUM QUALITATIVE NEGATIVE (NEGATIVE)
[2023-05-10 18:56] LABS: CPK CREATINE PHOSPHOKINASE 61 U/L (34-145); MB/CK RELATIVE INDEX 1.63 (< OR =4)
[2023-05-10] MEDS ORDERED: NS 1,000 ML IV SCH (20:05)
[2023-05-10] MEDS ORDERED: ISOVUE-370 76% 100ML VIAL As Ordered ONE (20:24)
[2023-05-10] MEDS ORDERED: LABETALOL 100MG/20ML VIAL IV STA (20:37)
[2023-05-10] MEDS ORDERED: METOCLOPRAMIDE INJ 10MG/2ML VIAL IV ONE (21:00)
[2023-05-10 22:11] LABS: RSV AMPLIFICATION NEGATIVE (NEGATIVE)
[2023-05-10 22:25] VITALS: BP 134/70; TEMP 98.2; O2SAT 100
== END 2023-05-10 22:32 | disposition short-term general hospital (02) ==
LOC: M ED 17:32
DX: R55 Syncope and collapse (principal); I65.23 Occlusion and stenosis of bilateral carotid arteries; I10 Essential (primary) hypertension; K21.9 Gastro-esophageal reflux disease without esophagitis; Z86.73 Personal history of transient ischemic attack (TIA), and cerebral infarction without residual deficits; Z99.3 Dependence on wheelchair; Z88.6 Allergy status to analgesic agent; Z88.8 Allergy status to other drugs, medicaments and biological substances; Z91.030 Bee allergy status; Z79.899 Other long term (current) drug therapy; Z79.51 Long term (current) use of inhaled steroids; Z98.84 Bariatric surgery status
CPT/HCPCS: 70450; 70496; 70498; 80048; 82550; 82553; 83735; 84439; 84443; 84703; 85025; 85610; 85730; 87631; 93005; 93041; 94760; 96374; 96375; 99285; J2765; Q9967

== ENCOUNTER → 2024-01-23 | Outpatient (CLI) | payer OTHER ==
[~2024-01-23] MED LIST changes: -AMIT25TA17 PO; +AMIT25TA19 PO; -GABA-283 PO; +GABA-284 PO; +LORA-1041 PO; -LORA-674 PO; +MECL-209 PO; -MECL1TAB31 PO; -MIRT-62 PO; +MIRT-84 PO; +MIRT-88 PO; -REME15TA2 PO
== END ==
LOC: M LAB 09:32
PROVIDERS: ATTEND Physician Assistant
DX: I70.1 Atherosclerosis of renal artery (principal); D68.59 Other primary thrombophilia

== ENCOUNTER 2024-03-01 17:16 | Emergency (ER) | payer OTHER ==
[~2024-03-01] VITALS: Ht 157.5 cm; Wt 109.1 kg
[2024-03-01] MEDS ORDERED: FERR325T19 (17:31)
[2024-03-01] MEDS ORDERED: SPIR-10 (17:31)
[2024-03-01] MEDS ORDERED: MAGN400T2 (17:31)
[2024-03-01] MEDS ORDERED: NEBI20TA2 (17:31)
[2024-03-01] MEDS: MORPHINE 4 MG/ML 1ML VIAL IV ONE ×2 (18:12→19:41)
[2024-03-01 18:25] LABS: RED BLOOD COUNT 4.27 10^6/uL (4.00-5.40); WHITE BLOOD COUNT 5.4 10^3/uL (4.0-10.0)
[2024-03-01 18:26] LABS: BASO % 0.7 % (0.0-1.0); EOS # 0.2 10^3/uL (0.0-0.5); HEMATOCRIT 41.6 % (36.0-47.0); HEMOGLOBIN 13.6 g/dl (12.0-15.5); LYMPH % 36.5 % (24.0-44.0); MEAN CORPUSCULAR HEMOGLOBIN 31.9 pg (27.0-33.0); MEAN CORPUSCULAR HGB CONC 32.7 g/dl (32.0-36.5); MEAN CORPUSCULAR VOLUME 97.4 fl (80.0-96.0); MONO # 0.4 10^3/uL (0.0-0.8); MONO % 6.9 % (2.0-8.0); NEUTROPHILS # 2.9 10^3/uL (1.5-8.5); NEUTROPHILS % 52.7 % (36.0-66.0); PLATELET COUNT, AUTOMATED 341 10^3/uL (150-450)
[2024-03-01 19:03] LABS: BLOOD UREA NITROGEN 20 MG/DL (9-23); CARBON DIOXIDE LEVEL 28 MMOL/L (20-31); CHLORIDE LEVEL 105 MMOL/L (98-107); CK-MB VALUE MASS < 1.0 NG/ML (<3.6); CREATININE FOR GFR 0.87 MG/DL (0.55-1.30); GLOMERULAR FILTRATION RATE > 60.0 (>58); GLUCOSE, FASTING 86 MG/DL (60-100); POTASSIUM SERUM 4.3 MMOL/L (3.5-5.1); SODIUM LEVEL 138 MMOL/L (136-145)
[2024-03-01 19:16] LABS: CPK CREATINE PHOSPHOKINASE 126 U/L (34-145); MB/CK RELATIVE INDEX 0.79 (< OR =4)
[2024-03-01] MEDS: ONDANSETRON 4MG 2ML VIAL IV ONE (19:41)
[2024-03-01 20:18] LABS: CK-MB VALUE MASS < 1.0 NG/ML (<3.6)
[2024-03-01 20:20] LABS: CPK CREATINE PHOSPHOKINASE 108 U/L (34-145); MB/CK RELATIVE INDEX 0.92 (< OR =4)
[2024-03-01] MEDS: METOCLOPRAMIDE INJ 10MG/2ML VIAL IV ONE (20:36)
[2024-03-01 20:50] LABS: LIPASE 35 U/L (12-53)
[2024-03-01 20:52] LABS: ALBUMIN 3.5 G/DL (3.2-5.2); ALKALINE PHOSPHATASE 166 U/L (46-116); ALT/SGPT 39 U/L (7.0-40); AST/SGOT 37 U/L (<34); BILIRUBIN,TOTAL 2.9 MG/DL (0.3-1.2); TOTAL PROTEIN 6.5 G/DL (5.7-8.2)
[2024-03-01 21:46] VITALS: BP 158/84; TEMP 98.5; O2SAT 97
[2024-03-01] MEDS: LIDOCAINE 5% (LIDODERM) PATCH TD ONE (21:55)
[2024-03-01] MEDS ORDERED: HYDR-3715 PO (22:05)
[2024-03-01] MEDS ORDERED: LIDO5DIS41 TOP (22:05)
== END 2024-03-01 22:20 | disposition home or self-care (01) ==
LOC: M ED 17:16
DX: R07.9 Chest pain, unspecified (principal); R00.1 Bradycardia, unspecified; I49.3 Ventricular premature depolarization; I10 Essential (primary) hypertension; Z86.718 Personal history of other venous thrombosis and embolism; Z86.79 Personal history of other diseases of the circulatory system; Z98.84 Bariatric surgery status; Z90.49 Acquired absence of other specified parts of digestive tract; Z88.8 Allergy status to other drugs, medicaments and biological substances; Z91.030 Bee allergy status; Z79.52 Long term (current) use of systemic steroids; Z79.83 Long term (current) use of bisphosphonates; Z79.891 Long term (current) use of opiate analgesic; Z79.899 Other long term (current) drug therapy; Z79.84 Long term (current) use of oral hypoglycemic drugs
CPT/HCPCS: 71045; 80048; 80076; 82550; 82553; 83690; 83880; 85025; 85379; 93005; 93041; 93971; 94760; 96374; 96375; 96376; 99285; J2405; J2765

== ENCOUNTER 2024-10-01 19:30 | Emergency (ER) | payer OTHER ==
[~2024-10-01 19:30] MED LIST changes: +CYTO100T2 PO; -CYTO1TAB2 PO; +FERR325T19; +GABA-1172 PO; -GABA-282 PO; +HYDR-3715 PO; +LIDO5DIS41 TOP; +MAGN400T2; +NEBI20TA2; +ONDA-282 PO; -ONDA4TAB6 PO; +SPIR-10
[2024-10-01 19:48] VITALS: BP 184/91; TEMP 98.5; O2SAT 99
[2024-10-01] MEDS ORDERED: ISOVUE-370 76% 100ML VIAL As Ordered ONE (20:06)
[2024-10-01 20:07] LABS: BASO % 0.4 % (0.0-1.0); EOS # 0.1 10^3/uL (0.0-0.5); EOS % 1.4 % (0.0-3.0); HEMATOCRIT 42.4 % (36.0-47.0); HEMOGLOBIN 13.8 g/dl (12.0-15.5); LYMPH # 3.3 10^3/uL (1.5-5.0); LYMPH % 42.6 % (24.0-44.0); MEAN CORPUSCULAR HEMOGLOBIN 30.7 pg (27.0-33.0); MEAN CORPUSCULAR HGB CONC 32.5 g/dl (32.0-36.5); MEAN CORPUSCULAR VOLUME 94.4 fl (80.0-96.0); MONO # 0.6 10^3/uL (0.0-0.8); MONO % 7.9 % (2.0-8.0); NEUTROPHILS # 3.6 10^3/uL (1.5-8.5); NEUTROPHILS % 47.3 % (36.0-66.0); PLATELET COUNT, AUTOMATED 354 10^3/uL (150-450); RED BLOOD COUNT 4.49 10^6/uL (4.00-5.40); WHITE BLOOD COUNT 7.7 10^3/uL (4.0-10.0)
[2024-10-01] MEDS: KETOROLAC 30 MG/ML 1ML VIAL IV ONE (20:09)
[2024-10-01] MEDS: METOCLOPRAMIDE INJ 10MG/2ML VIAL IV ONE (20:09)
[2024-10-01 20:20] LABS: INR 0.87; PARTIAL THROMBOPLASTIN TIME 25.6 SECONDS (24.8-34.2); PROTHROMBIN TIME 12.1 SECONDS (12.5-14.5)
[2024-10-01 20:30] LABS: BLOOD UREA NITROGEN 11 MG/DL (9-23); CALCIUM LEVEL 9.1 MG/DL (8.5-10.1); CARBON DIOXIDE LEVEL 26 MMOL/L (20-31); CHLORIDE LEVEL 109 MMOL/L (98-107); CREATININE FOR GFR 0.71 MG/DL (0.55-1.30); GLOMERULAR FILTRATION RATE > 60.0 (>58); GLUCOSE, FASTING 89 MG/DL (60-100); PHOSPHORUS LEVEL 2.6 MG/DL (2.5-4.9); POTASSIUM SERUM 3.6 MMOL/L (3.5-5.1); SODIUM LEVEL 140 MMOL/L (136-145)
[2024-10-01] MEDS: ACETAMINOPHEN *IV* 1,000 MG in IV 1 EA IV ONE (20:33)
[2024-10-01] MEDS: MAG SULF 1GM/100ML (MAG RUN) 1 GM in IV 1 EA IV ONE (20:56)
[2024-10-01] MEDS: PROMETHAZINE 25MG/ML 1ML VIAL IV ONE (23:24)
[2024-10-01] MEDS: RIZATRIPTAN MLT 10 MG TAB PO PRN (23:51)
== END 2024-10-02 00:31 | disposition home or self-care (01) ==
LOC: M ED 19:30
DX: G43.909 Migraine, unspecified, not intractable, without status migrainosus (principal); I44.0 Atrioventricular block, first degree; R00.1 Bradycardia, unspecified; I10 Essential (primary) hypertension; F32.A Depression, unspecified; Z88.8 Allergy status to other drugs, medicaments and biological substances; Z91.030 Bee allergy status; Z79.1 Long term (current) use of non-steroidal anti-inflammatories (NSAID); Z79.51 Long term (current) use of inhaled steroids; Z79.899 Other long term (current) drug therapy
CPT/HCPCS: 70450; 70496; 70498; 80047; 80048; 83735; 84100; 85025; 85610; 85730; 93005; 96365; 96366; 96374; 96375; 99284; J0131; J1100; J1885; J2550; J2765; J3475; Q9967

== ENCOUNTER 2025-07-02 22:39 | Observation (INO) | payer OTHER ==
[~2025-07-02] VITALS: Ht 172.7 cm; Wt 133.5 kg
[~2025-07-02 22:39] MED LIST changes: -AMIO200T49 PO; +AMIO200T54 PO; -FERR325T19; +FERR325T19 PO; +LIDO1ADH93 TOP; -LIDO5DIS41 TOP; -MAGN400T2; +MAGN400T2 PO; -NEBI20TA2; +NEBI20TA2 PO; -SPIR-10
[2025-07-02 23:56] LABS: VENOUS BASE EXCESS 0.1 (-2.0-2.0); VENOUS HCO3 26.7 MMOL/L (23.0-27.0); VENOUS O2 SATURATION 61.1 % (60.0-80.0); VENOUS PARTIAL PRESSURE CO2 50.7 mmHg (38.0-50.0); VENOUS PARTIAL PRESSURE O2 33.7 mmHg (30.0-50.0); VENOUS PH 7.339 UNITS (7.330-7.430); VENOUS STANDARD HCO3 23.7 MMOL/L; VENOUS TOTAL CO2 28.2 MMOL/L (24.0-28.0)
[2025-07-03 00:19] LABS: ALT/SGPT 15.0 U/L (7.0-40); AST/SGOT 24.0 U/L (<34); BASO # 0.0 10^3/uL (0.0-0.2); BASO % 0.4 % (0.0-1.0); CALCIUM LEVEL 8.5 MG/DL (8.5-10.1); CARBON DIOXIDE LEVEL 27.0 MMOL/L (20-31); CHLORIDE LEVEL 105.0 MMOL/L (98-107); CREATININE FOR GFR 0.84 MG/DL (0.55-1.30); EOS # 0.1 10^3/uL (0.0-0.5); EOS % 1.9 % (0.0-3.0); GLOMERULAR FILTRATION RATE 88.4 (>58); LYMPH # 2.0 10^3/uL (1.5-5.0); LYMPH % 28.7 % (24.0-44.0); MAGNESIUM LEVEL 1.9 MG/DL (1.8-2.4); MONO # 0.6 10^3/uL (0.0-0.8); MONO % 8.1 % (2.0-8.0); NEUTROPHILS # 4.1 10^3/uL (1.5-8.5); NEUTROPHILS % 60.3 % (36.0-66.0); PHOSPHORUS LEVEL 3.1 MG/DL (2.5-4.9); PLATELET COUNT, AUTOMATED 336 10^3/uL (150-450); POTASSIUM SERUM 4.1 MMOL/L (3.5-5.1); SODIUM LEVEL 143.0 MMOL/L (136-145)
[2025-07-03] MEDS ORDERED: ACET1TAB55 PO (00:33)
[2025-07-03] MEDS ORDERED: NIFE1TAB51 PO (00:33)
[2025-07-03] MEDS ORDERED: TELM1TAB35 PO (00:33)
[2025-07-03] MEDS ORDERED: HOME MED LIST COMPLETE! XX SCH (00:35)
[2025-07-03] MEDS: NS (Normal Saline) 0.9% 1,000 ML IV ONE (00:39)
[2025-07-03] MEDS: KETOROLAC 30 MG/ML 1 ML VIAL IV ONE (00:39)
[2025-07-03] MEDS: MAG SULF 1GM/100ML (MAG RUN) 1 GM in IV 1 EA IV ONE (00:39)
[2025-07-03] MEDS: dexAMETHasone 4 MG/ML 1 ML VIAL IV ONE (00:39)
[2025-07-03] MEDS: ACETAMINOPHEN *IV* 1,000 MG in IV 1 EA IV ONE (00:40)
[2025-07-03 01:07] LABS: APPEARANCE, URINE CLEAR (CLEAR); BACTERIA, URINE AUTO NEGATIVE (NEGATIVE); BILIRUBIN, URINE AUTO NEGATIVE (NEGATIVE); BLOOD, URINE BLOOD NEGATIVE (NEGATIVE); GLUCOSE, URINE (UA) AUTO NEGATIVE (NEGATIVE); KETONE, URINE AUTO NEGATIVE (NEGATIVE); LEUKOCYTE ESTERASE, URINE AUTO NEGATIVE (NEGATIVE); MUCUS, URINE SMALL (NEGATIVE); NITRITE, URINE AUTO NEGATIVE (NEGATIVE); PROTEIN, URINE AUTO NEGATIVE (NEGATIVE); RBC, URINE AUTO 0 /HPF (0-3); SPECIFIC GRAVITY URINE AUTO 1.010 (1.002-1.035); SQUAMOUS EPITHELIAL CELL UR AU 2 /HPF (0-6); UROBILINOGEN, URINE AUTO 0.2 mg/dL (0.0-2.0); WBC, URINE AUTO 1 /HPF (0-3)
[2025-07-03 01:26] LABS: AMPHETAMINES LEVEL URINE NEGATIVE (NEGATIVE); BARBITURATES URINE NEGATIVE (NEGATIVE); BENZODIAZEPINES URINE NEGATIVE (NEGATIVE); CANNABINOIDS URINE NEGATIVE (NEGATIVE); COCAINE METABOLITE URINE NEGATIVE (NEGATIVE); METHADONE URINE NEGATIVE (NEGATIVE); OPIATES URINE NEGATIVE (NEGATIVE); PHENCYCLIDINE URINE NEGATIVE (NEGATIVE)
[2025-07-03] MEDS: FIORICET TAB PO ONE (02:37)
[2025-07-03] MEDS ORDERED: ISOVUE-370 76% 100 ML VIAL As Ordered ONE (03:58)
[2025-07-03] MEDS: levETIRAcetam INJection 1,000 MG in IV 1 EA IV ONE (04:17)
[2025-07-03] MEDS ORDERED: ONDANSETRON 4MG ORAL DISINTEGRATING TAB PO PRN (04:25)
[2025-07-03] MEDS ORDERED: MOM 30 ML SUSPENSION UDC PO PRN (04:25)
[2025-07-03] MEDS ORDERED: MAALOX 30 ML SUSP *UDC PO PRN (04:25)
[2025-07-03] MEDS: diphenhydrAMINE 50 MG/ML VIAL IV STA (05:01)
[2025-07-03 06:06] LABS: PROLACTIN 9.99 NG/ML
[2025-07-03 06:10] VITALS: BP 151/90
[2025-07-03] MEDS: NIFEdipine 10 MG CAP PO SCH (06:10)
[2025-07-03] MEDS: MAGNESIUM OXIDE 400 MG TAB PO SCH (08:58)
[2025-07-03] MEDS: PANTOPRAZOLE 40MG TAB PO SCH (08:58)
[2025-07-03] MEDS: FERROUS SULFATE 325 MG TAB PO SCH (08:58)
[2025-07-03] MEDS: DOCUSATE SODIUM 100 MG CAPSULE PO SCH (08:59)
[2025-07-03] MEDS ORDERED: KEPP500T13 PO (10:13)
[2025-07-03] MEDS: ACETAMINOPHEN 325 MG TAB PO PRN (10:38)
[2025-07-03 11:02] VITALS: BP 160/80; TEMP 96.8; O2SAT 98
== END 2025-07-03 11:12 | disposition home or self-care (01) ==
LOC: M ED 22:39 → M ED INP 07-03 07:38
PROVIDERS: ADMIT Student in an Organized Health Care Education/Training Program; ATTEND Student in an Organized Health Care Education/Training Program
DX: R56.9 Unspecified convulsions (principal); I67.1 Cerebral aneurysm, nonruptured; Z95.828 Presence of other vascular implants and grafts; I69.844 Monoplegia of lower limb following other cerebrovascular disease affecting left non-dominant side; Z99.3 Dependence on wheelchair; R55 Syncope and collapse; R11.0 Nausea; R00.1 Bradycardia, unspecified; I10 Essential (primary) hypertension; E66.01 Morbid (severe) obesity due to excess calories; K21.9 Gastro-esophageal reflux disease without esophagitis; D64.9 Anemia, unspecified; M51.27 Other intervertebral disc displacement, lumbosacral region; G89.29 Other chronic pain; F32.A Depression, unspecified; F41.9 Anxiety disorder, unspecified; J45.909 Unspecified asthma, uncomplicated; R60.0 Localized edema; Z98.84 Bariatric surgery status; Z85.41 Personal history of malignant neoplasm of cervix uteri; Z90.49 Acquired absence of other specified parts of digestive tract; Z90.89 Acquired absence of other organs; Z90.79 Acquired absence of other genital organ(s); Z86.718 Personal history of other venous thrombosis and embolism; Z82.5 Family history of asthma and other chronic lower respiratory diseases; Z83.3 Family history of diabetes mellitus; Z82.49 Family history of ischemic heart disease and other diseases of the circulatory system; Z87.891 Personal history of nicotine dependence; Z88.8 Allergy status to other drugs, medicaments and biological substances; Z91.048 Other nonmedicinal substance allergy status; Z88.3 Allergy status to other anti-infective agents; Z91.030 Bee allergy status; Z79.899 Other long term (current) drug therapy
CPT/HCPCS: 70450; 70496; 70498; 72125; 80048; 80076; 80307; 81001; 82140; 82330; 82803; 83605; 83735; 84100; 84146; 85025; 87486; 87581; 87633; 87798; 93005; 93041; 94760; 96365; 96366; 96367; 96368; 96375; 97162; 99285; J0131; J1100; J1200; J1885; J1953; J3475; Q9967

== ENCOUNTER 2025-09-13 15:36 | Inpatient (IN) | payer OTHER ==
[~2025-09-13] VITALS: Ht 157.5 cm; Wt 131.0 kg
[~2025-09-13 15:36] MED LIST changes: +KEPP500T13 PO; +NIFE1TAB51 PO; +TELM1TAB35 PO
[2025-09-13 16:08] LABS: BASO # 0.0 10^3/uL (0.0-0.2); BASO % 0.5 % (0.0-1.0); EOS # 0.1 10^3/uL (0.0-0.5); EOS % 1.6 % (0.0-3.0); LYMPH # 2.7 10^3/uL (1.5-5.0); LYMPH % 33.5 % (24.0-44.0); MONO # 0.6 10^3/uL (0.0-0.8); MONO % 6.8 % (2.0-8.0); NEUTROPHILS # 4.6 10^3/uL (1.5-8.5); NEUTROPHILS % 57.2 % (36.0-66.0); PLATELET COUNT, AUTOMATED 411 10^3/uL (150-450)
[2025-09-13] MEDS ORDERED: ISOVUE-370 76% 100 ML VIAL As Ordered ONE (16:32)
[2025-09-13 16:36] LABS: ALT/SGPT 38.0 U/L (7.0-40); AST/SGOT 37.0 U/L (<34); CALCIUM LEVEL 8.7 MG/DL (8.5-10.1); CARBON DIOXIDE LEVEL 27.0 MMOL/L (20-31); CHLORIDE LEVEL 102.0 MMOL/L (98-107); CREATININE FOR GFR 0.83 MG/DL (0.55-1.30); GLOMERULAR FILTRATION RATE 89.7 (>58); MAGNESIUM LEVEL 1.6 MG/DL (1.8-2.4); POTASSIUM SERUM 3.6 MMOL/L (3.5-5.1); SODIUM LEVEL 140.0 MMOL/L (136-145)
[2025-09-13] MEDS: METOPROLOL TART 50 MG TAB PO ONE (17:28)
[2025-09-13] MEDS: METOPROLOL 5 MG/5 ML VIAL IV SCH (17:28)
[2025-09-13] MEDS: MAG SULF 1GM/100ML (MAG RUN) 1 GM in IV 1 EA IV ONE ×2 (18:09)
[2025-09-13] MEDS: APIXABAN 5 MG TAB PO ONE (18:09)
[2025-09-13] MEDS: hydrALAZINE 20 MG/ML 1 ML VIAL IV ONE (18:43)
[2025-09-13] MEDS ORDERED: ASPI81TA26 PO (19:57)
[2025-09-13] MEDS ORDERED: HOME MED LIST COMPLETE! XX SCH (20:00)
[2025-09-13] MEDS: ROSUVASTATIN 10 MG TAB PO SCH (21:00)
[2025-09-14] MEDS: METOPROLOL TART 12.5 MG PER 1/2 TAB PO SCH (06:32)
[2025-09-14 07:40] LABS: BASO # 0.0 10^3/uL (0.0-0.2); BASO % 0.6 % (0.0-1.0); EOS # 0.1 10^3/uL (0.0-0.5); EOS % 1.9 % (0.0-3.0); LYMPH # 2.1 10^3/uL (1.5-5.0); LYMPH % 33.2 % (24.0-44.0); MONO # 0.6 10^3/uL (0.0-0.8); MONO % 8.5 % (2.0-8.0); NEUTROPHILS # 3.6 10^3/uL (1.5-8.5); NEUTROPHILS % 55.5 % (36.0-66.0); PLATELET COUNT, AUTOMATED 387 10^3/uL (150-450)
[2025-09-14 08:14] LABS: CALCIUM LEVEL 8.5 MG/DL (8.5-10.1); CARBON DIOXIDE LEVEL 25 MMOL/L (20-31); CHLORIDE LEVEL 104 MMOL/L (98-107); CHOLESTEROL LEVEL 134.0 MG/DL (<200); CHOLESTEROL RISK RATIO 1.97 (<5); CREATININE FOR GFR 0.67 MG/DL (0.55-1.30); GLOMERULAR FILTRATION RATE > 90.0 (>58); LDL CHOLESTEROL 48.0 MG/DL (<100); MAGNESIUM LEVEL 1.9 MG/DL (1.8-2.4); NON-HDL-C 66.2 MG/DL; POTASSIUM SERUM 3.6 MMOL/L (3.5-5.1); SODIUM LEVEL 140 MMOL/L (136-145); TRIGLYCERIDES LEVEL 91.0 MG/DL (<150)
[2025-09-14] MEDS: APIXABAN 5 MG TAB PO SCH (08:38)
[2025-09-14] MEDS: ASPIRIN 81 MG ENTERIC TABLET PO SCH (08:38)
[2025-09-14] MEDS: PANTOPRAZOLE 40MG VIAL IV SCH (08:38)
[2025-09-14] MEDS: NIFEdipine 30 MG XL TAB PO SCH (08:40)
[2025-09-14] MEDS: MAGNESIUM OXIDE 400 MG TAB PO SCH (08:40)
[2025-09-14] MEDS ORDERED: MAGNESIUM OXIDE 400 MG TAB PO SCH (09:00)
[2025-09-14] MEDS: TELMISARTAN 20 MG TAB PO SCH (09:40)
[2025-09-14] MEDS: METOPROLOL TART 25 MG TABLET PO SCH (12:30)
[2025-09-14] MEDS: TOPIRAMATE 25 MG TAB PO ONE (12:30)
[2025-09-14] MEDS: FIORICET TAB PO ONE (13:43)
[2025-09-14] MEDS: METOPROLOL TART 25 MG TABLET PO ONE (13:44)
[2025-09-14] MEDS: METOPROLOL TART 50 MG TAB PO SCH (18:42)
[2025-09-15] VITALS (10 sets, daily range): BP systolic 96–155; BP diastolic 62–97; TEMP 97.9–98.6; O2SAT 95–98
[2025-09-15] MEDS: ONDANSETRON 4MG ORAL DISINTEGRATING TAB SL ONE (03:42)
[2025-09-15 07:46] LABS: BASO # 0.0 10^3/uL (0.0-0.2); BASO % 0.5 % (0.0-1.0); EOS # 0.2 10^3/uL (0.0-0.5); EOS % 2.7 % (0.0-3.0); LYMPH # 2.5 10^3/uL (1.5-5.0); LYMPH % 39.7 % (24.0-44.0); MONO # 0.5 10^3/uL (0.0-0.8); MONO % 8.5 % (2.0-8.0); NEUTROPHILS # 3.1 10^3/uL (1.5-8.5); NEUTROPHILS % 48.3 % (36.0-66.0); PLATELET COUNT, AUTOMATED 349 10^3/uL (150-450)
[2025-09-15 08:08] LABS: CALCIUM LEVEL 8.4 MG/DL (8.5-10.1); CARBON DIOXIDE LEVEL 27 MMOL/L (20-31); CHLORIDE LEVEL 105 MMOL/L (98-107); CREATININE FOR GFR 0.68 MG/DL (0.55-1.30); GLOMERULAR FILTRATION RATE > 90.0 (>58); MAGNESIUM LEVEL 1.7 MG/DL (1.8-2.4); POTASSIUM SERUM 3.9 MMOL/L (3.5-5.1); SODIUM LEVEL 141 MMOL/L (136-145)
[2025-09-15] MEDS: DAPAGLIFLOZIN PROPANEDIOL 10 MG TABLET PO SCH (09:09)
[2025-09-15] MEDS: SPIRONOLACTONE 25 MG TAB PO SCH (10:20)
[2025-09-15] MEDS: NIFEdipine 30 MG XL TAB PO SCH (10:20)
[2025-09-15] MEDS: ENTRESTO 24-26 MG TABLET (SACUBITRIL/VALSARTAN) PO SCH (10:20)
[2025-09-15] MEDS: ONDANSETRON 4MG ORAL DISINTEGRATING TAB SL SCH (12:33)
[2025-09-15] MEDS: TOPIRAMATE 25 MG TAB PO ONE (14:47)
[2025-09-15] MEDS: ACETAMINOPHEN 500 MG TAB PO ONE (14:47)
[2025-09-15] MEDS: FLUZONE VACCINE TRI PF(25-26) 0.5ML SYRINGE IM.IMMUN ONE (17:23)
[2025-09-15 20:46] LABS: HIV 1&2 SCREEN NEGATIVE (NEGATIVE)
[2025-09-16 03:14] VITALS: O2SAT 94
[2025-09-16 04:12] VITALS: BP 129/86; TEMP 99.3; O2SAT 94
[2025-09-16 06:04] LABS: BASO # 0.0 10^3/uL (0.0-0.2); BASO % 0.5 % (0.0-1.0); EOS # 0.2 10^3/uL (0.0-0.5); EOS % 3.0 % (0.0-3.0); LYMPH # 2.1 10^3/uL (1.5-5.0); LYMPH % 37.1 % (24.0-44.0); MONO # 0.4 10^3/uL (0.0-0.8); MONO % 7.1 % (2.0-8.0); NEUTROPHILS # 3.0 10^3/uL (1.5-8.5); NEUTROPHILS % 52.0 % (36.0-66.0); PLATELET COUNT, AUTOMATED 359 10^3/uL (150-450)
[2025-09-16 06:34] LABS: CALCIUM LEVEL 8.5 MG/DL (8.5-10.1); CARBON DIOXIDE LEVEL 27.0 MMOL/L (20-31); CHLORIDE LEVEL 105.0 MMOL/L (98-107); CREATININE FOR GFR 0.83 MG/DL (0.55-1.30); GLOMERULAR FILTRATION RATE 89.7 (>58); MAGNESIUM LEVEL 2.0 MG/DL (1.8-2.4); POTASSIUM SERUM 3.8 MMOL/L (3.5-5.1); SODIUM LEVEL 142.0 MMOL/L (136-145)
[2025-09-16] MEDS ORDERED: ALDA25TA2 PO (06:48)
[2025-09-16] MEDS ORDERED: ENTR1TAB PO (06:48)
[2025-09-16] MEDS ORDERED: ELIQ5TAB PO (06:48)
[2025-09-16] MEDS ORDERED: ROSU10TA61 PO (06:48)
[2025-09-16] MEDS ORDERED: FARX1TAB3 PO (06:48)
[2025-09-16] MEDS ORDERED: CARV12.5 PO (06:48)
[2025-09-16 08:26] VITALS: BP 138/99
[2025-09-16] MEDS ORDERED: TOPA50TA8 PO (10:47)
[2025-09-16] MEDS: FIORICET TAB PO ONE (11:11)
[2025-09-16] MEDS: TOPIRAMATE 25 MG TAB PO ONE (11:12)
== END 2025-09-16 13:12 | disposition home or self-care (01) | DRG 201 ==
LOC: M ED 15:36 → M ED INP 15:37 → M MSPAV 09-15 01:04 → OBSVTOIN 09-15 11:48
PROVIDERS: ADMIT Student in an Organized Health Care Education/Training Program; ATTEND General Practice
PROC: B246ZZZ Ultrasonography of Right and Left Heart (ICD-10-PCS; principal; 2025-09-14)
DX: I48.91 Unspecified atrial fibrillation (principal); I11.0 Hypertensive heart disease with heart failure; I42.8 Other cardiomyopathies; I50.20 Unspecified systolic (congestive) heart failure; I69.354 Hemiplegia and hemiparesis following cerebral infarction affecting left non-dominant side; G62.9 Polyneuropathy, unspecified; I16.0 Hypertensive urgency; J45.909 Unspecified asthma, uncomplicated; F32.A Depression, unspecified; K21.9 Gastro-esophageal reflux disease without esophagitis; E66.9 Obesity, unspecified; D50.9 Iron deficiency anemia, unspecified; I34.0 Nonrheumatic mitral (valve) insufficiency; M54.9 Dorsalgia, unspecified; G89.29 Other chronic pain; Z85.41 Personal history of malignant neoplasm of cervix uteri; Z90.49 Acquired absence of other specified parts of digestive tract; Z90.79 Acquired absence of other genital organ(s); Z91.030 Bee allergy status; Z88.6 Allergy status to analgesic agent; Z99.3 Dependence on wheelchair; Z88.8 Allergy status to other drugs, medicaments and biological substances; Z79.82 Long term (current) use of aspirin; Z86.718 Personal history of other venous thrombosis and embolism; Z79.899 Other long term (current) drug therapy; F41.9 Anxiety disorder, unspecified; H53.8 Other visual disturbances

== ENCOUNTER → 2025-09-23 | Outpatient (CLI) | payer OTHER ==
[~2025-09-23] MED LIST changes: +ASPI81TA26 PO; +CARV12.5 PO; +ELIQ5TAB PO; +ENTR1TAB PO; +FARX1TAB3 PO; +ROSU10TA90 PO; +TOPA50TA8 PO
[2025-09-23 11:21] LABS: CALCIUM LEVEL 9.1 MG/DL (8.5-10.1); CARBON DIOXIDE LEVEL 25.0 MMOL/L (20-31); CHLORIDE LEVEL 107.0 MMOL/L (98-107); CREATININE FOR GFR 0.89 MG/DL (0.55-1.30); GLOMERULAR FILTRATION RATE 82.5 (>58); POTASSIUM SERUM 4.9 MMOL/L (3.5-5.1); SODIUM LEVEL 142.0 MMOL/L (136-145)
== END ==
LOC: M LAB 09:32
PROVIDERS: ATTEND Nurse Practitioner Family
DX: I10 Essential (primary) hypertension (principal)